=== PATIENT | female | born 1965 | race Caucasian/White ===

== ENCOUNTER 2016-12-29 15:01 | Observation (INO) ==
--- NOTE | 2016-12-29 15:24 | Emergency Department Note ---
Disposition Clinical Impression: Transient cerebral ischemia, Hypertension, Diabetes, Tobacco abuse, CAD ( coronary artery disease), Chest pain, Obesity Disposition: Admitted As Inpatient Referrals: David Grimes MD [Primary Care Provider] - Forms: ED Satisfaction Letter General Adult HPI - General Chief complaint: ED Neuro Symptoms/Deficit Stated complaint: "slurred words", possible AMS Time Seen by Provider: 12/29/16 15:24 Source: patient, family Limitations: no limitations - History of Present Illness HPI Narrative: 51-year-old female reports emergency department with concerns for left arm numbness and tingling which started last night but then resolved. This morning she was at home and had an argument with her , her daughter called her about 1:00 and noticed that she was not speaking as clearly as usual so she went and checked her. She brought the patient to the ED for evaluation. There is no history of upper or lower extremity weakness or numbness that persisted. The patient describes a posterior occipital headache. There is no history of head trauma, neck stiffness rash or fever. No convulsions or confusion. The patient describes having some chest pain earlier today as well as shortness of breath. She has chronic abdominal pain which is unchanged. There is no history of bloody or black material in the stool. No history of vomiting or diarrhea. No fevers urinary symptoms or back pain. She has had no trouble walking or securing or speaking, the patient is known to be diabetic and her blood sugar was checked and it was in the 190s. On arrival to the ED room the patient states she has no symptoms. Pain Scale: 0 - Related Data Home Medications Medication Instructions Recorded Confirmed Albuterol Sulfate [Proair Hfa] 1 - 2 puff IH Q4H PRN 05/13/16 12/29/16 Montelukast [Singulair] 10 mg PO DAILY 05/13/16 12/29/16 Omeprazole [PriLOSEC] 40 mg PO BID 05/13/16 12/29/16 Thyroid,Pork [Froid Thyroid] 90 mg PO DAILY 05/13/16 12/29/16 Ipratropium/Albuterol Neb [Duoneb] 3 ml IH Q6HR PRN 05/14/16 12/29/16 Nitroglycerin [Nitrostat] 0.4 mg SL AD PRN 05/14/16 12/29/16 EPINEPHrine [Epipen] 0.3 mg IM ONCE PRN 12/16/16 12/29/16 HydrOXYzine 10 mg PO QID PRN 12/16/16 12/29/16 Metformin HCl [Glucophage] 1,000 mg PO BID 12/16/16 12/29/16 Oxygen 3 l NS AD PRN 12/16/16 12/29/16 Ranitidine HCl [Zantac] 150 mg PO BID PRN 12/16/16 12/29/16 Sucralfate [Carafate] 1 gm PO BID 12/16/16 12/29/16 HYDROcodone/Acet 7.5/325 mg [[place] 1 tab PO QID PRN 12/29/16 12/29/16 7.5-325 mg] Lisinopril [Zestril] 10 mg PO DAILY 12/29/16 12/29/16 Allergies Allergy/AdvReac Type Severity Reaction Status Date / Time acetaminophen Allergy Anaphylaxis Verified 12/29/16 15:19 [From Tylenol-Codeine #3] Amoxicillin Allergy Difficulty Verified 12/29/16 15:19 Breathing codeine Allergy Anaphylaxis Verified 12/29/16 15:19 [From Tylenol-Codeine #3] levofloxacin [From Levaquin] Allergy Anaphylaxis Verified 12/29/16 15:19 levothyroxine sodium Allergy Anaphylaxis Verified 12/29/16 15:19 Penicillins Allergy Anaphylaxis Verified 12/29/16 15:19 All systems ED: reviewed and negative except as stated. Past Medical History - Past Medical History Medical history: Reports: arthritis, COPD, diabetes, fibromyalgia, GERD, hypertension, thyroid disease Surgical history: Reports: cholecystectomy, hysterectomy Psychiatric history: Reports: anxiety EMPLOYEE RELATIONS SPECIALIST history: Reports: no EMPLOYEE RELATIONS SPECIALIST history - Social History Smoking Status: Current every day smoker Smokeless Tobacco Status: No Alcohol use: Reports: rarely Drug use: Reports: none Physical Exam - General Limitations: no limitations General appearance: alert, in no apparent distress - Head Head exam: atraumatic, normocephalic, normal inspection - Eye Eye exam: Present: normal appearance, PERRL, EOMI. Absent: scleral icterus, conjunctival injection, nystagmus, miosis, mydriasis, periorbital swelling - ENT ENT exam: normal exam, normal oropharynx, mucous membranes moist - Neck Neck exam: Present: normal inspection, full ROM, trachea midline. Absent: tenderness - Chest Chest inspection: Present: symmetric chest wall rise. Absent: tenderness - Respiratory Respiratory exam: Present: normal lung sounds bilaterally. Absent: respiratory distress, wheezes, accessory muscle use, prolonged expiratory phase - Cardiovascular Cardiovascular exam: Present: regular rate, normal rhythm, normal heart sounds - Abdominal Exam Abdominal exam: Present: soft, Non-Tender, normal bowel sounds, Rovsing's sign. Absent: tenderness, distention, guarding, rebound, rigidity, pulsatile mass - Extremities Exam Extremities exam: Present: normal inspection, full ROM, normal capillary refill. Absent: tenderness, pedal edema, joint swelling, calf tenderness - Expanded Lower Extremity Exam Lower leg exam: Absent: Homans' sign - Back Exam Back exam: Present: normal inspection, full ROM. Absent: tenderness, CVA tenderness (R), CVA tenderness (L), vertebral tenderness - Neurological Exam Neurological exam: Present: alert, oriented X3, CN II-XII intact, other (Finger to nose testing unremarkable, no pronator drift noted. The patient has chronic right lower extremity pain making it difficult to move her right extremity, but she seems to have good strength and sensation and denies any changes in her right lower extremity status regarding movement or sensory ability. I do not detect a focal neurologic defect on my examination.). Absent: motor sensory deficit - Psychiatric Psychiatric exam: Present: normal affect, normal mood - Skin Skin exam: Present: warm, dry, intact, normal color. Absent: rash, cyanosis, diaphoresis, erythema, pallor, mottled Course - Reevaluation(s) Reevaluation #1: The patient was in ED room, after our initial evaluation there was some slight slurred speech. Initial weakness orders and head CT were placed. We reviewed the case with the charge nurse, the patient does not meet criteria for stroke alert based on waxing and waning symptomatology which began last night. The patient's slurred speech defervesced very rapidly while in the ED. She was sent to CT scan. Vital Signs Temperature 97.7 F 12/29/16 15:13 Pulse Rate 87 12/29/16 15:13 Respiratory Rate 18 12/29/16 15:13 Blood Pressure 178/104 12/29/16 15:13 O2 Sat by Pulse Oximetry 95 12/29/16 15:13 Temperature 97.7 F 12/29/16 15:13 Pulse Rate 87 12/29/16 15:13 Respiratory Rate 18 12/29/16 15:13 Blood Pressure 178/104 12/29/16 15:13 O2 Sat by Pulse Oximetry 95 12/29/16 15:13 Oxygen Delivery Oxygen Delivery Room Air Medical Decision Making - MDM Narrative Medical decision making narrative: The patient's testing here is unremarkable, she has described intermittent chest pain. She also describes some left arm numbness or tingling last evening , then some slurred speech earlier today, which resolved, then recurred, then resolved. The patient appears to be stable. She may be experiencing TIA. She does have significant vascular risk factors including age, smoking, diabetes, and hypertension. The patient was given aspirin in the ED. Based on her history suggestive of neurologic disorder, as well as concerns for chest pain, with associated vascular risk factors, I thought it would be appropriate to admit the patient to the hospital. She is currently stable. I discussed the case with the hospitalist on-call who has accepted the patient to their care. - Lab Data Lab results reviewed: Yes I reviewed the patient's lab results. Result diagrams: 12/29/16 16:25 12/29/16 16:25 Lab Results 12/29/16 12/29/16 12/29/16 Range/Units 15:33 15:33 16:25 WBC 8.7 (4.3-11.1) K/mcL RBC 4.93 (3.82-4.97) M/mcL Hgb 14.6 (11.5-15.4) g/dL Hct 44.9 (35.3-44.9) % MCV 91.1 (83.0-100.0) fL MCH 29.6 (28.0-33.3) pg MCHC 32.5 (31.6-35.5) g/dL RDW 13.0 (11.5-14.5) % Plt Count 248 (140-400) K/mcL MPV 10.0 (9.4-12.4) fL Immature Gran % 0.3 (0-4) % Seg Neutrophils % 61.0 % Lymphocytes % 29.3 % Monocytes % 5.8 % Eosinophils % 3.3 % Basophils % 0.3 % Neutrophils # 5.3 (1.6-8.9) K/mcL Lymphocytes # 2.6 (0.6-4.6) K/mcL Monocytes # 0.5 (0.0-1.3) K/mcL Eosinophils # 0.3 (0.0-0.6) K/mcL Basophils # 0.0 (0.0-0.2) K/mcL Immature Plt Fraction 4.2 (1.1-6.1) % Sodium (136-145) mEq/L Potassium (3.5-4.5) mEq/L Chloride (98-109) mEq/L Carbon Dioxide (19-29) mEq/L BUN (7-20) mg/dL Creatinine (0.57-1.11) mg/dL Est GFR ( Amer) (> 60) Est GFR (Non-Af Amer) (> 60) BUN/Creatinine Ratio (6-26) Glucose (70-99) mg/dL Calculated Osmolality (280-300) Lactic Acid (0.5-2.2) mmol/L Calcium (8.6-10.8) mg/dL Magnesium (1.6-2.6) mg/dL Total Bilirubin (0.2-1.2) mg/dL Direct Bilirubin (0.0-0.5) mg/dL Indirect Bilirubin (0.0-1.2) mg/dL AST (5-34) Units/L ALT (0-55) Units/L Alkaline Phosphatase (38-126) Units/L Troponin I (0-0.03) ng/mL C-Reactive Protein (Less than 5) mg/L Serum Total Protein (6.0-8.3) g/dL Albumin (3.5-5.0) g/dL Globulin (2.4-3.5) g/dL Albumin/Globulin Ratio (1.1-2.2) TSH (0.350-4.840) mcIU/mL Urine Color Yellow (Yellow) Urine Clarity Clear (Clear) Urine pH 7.0 (5.0-8.0) pH Units Ur Specific [place] 1.007 L (1.010-1.025) Urine Protein Negative (Neg-Trace) mg/dL Urine Glucose (UA) Normal (Normal) mg/dL Urine Ketones Negative (Negative) mg/dL Urine Blood Negative (Negative) Urine Nitrite Negative (Negative) Urine Bilirubin Negative (Negative) Urine Urobilinogen Normal (Normal) mg/dL Ur Leukocyte Esterase Trace H (Negative) Urine Microscopic RBC 0-3 (0-3) per hpf Urine Microscopic WBC 0-3 (0-3) per hpf Ur Squamous Epith Cells Moderate H (None-Few) per lpf Urine Bacteria None Seen (None-Few) per hpf Hyaline Casts None Seen (None-Few) per lpf Ur Culture Indicated? YES A (NO) Urine Opiates Screen Negative (Qvzpiy=198) ng/mL Ur Barbiturates Screen Negative (Yepkqr=760) ng/mL Ur Phencyclidine Scrn Negative (Cutoff=25) ng/mL Ur Amphetamines Screen Negative (Whdohe=3826) ng/mL U Benzodiazepines Scrn Negative (Wsqaof=225) ng/mL Urine Cocaine Screen Negative (Cutoff= 300) ng/mL U Marijuana (THC) Screen Negative (Cutoff = 50) ng/mL 12/29/16 12/29/16 12/29/16 Range/Units 16:25 16:25 16:25 WBC (4.3-11.1) K/mcL RBC (3.82-4.97) M/mcL Hgb (11.5-15.4) g/dL Hct (35.3-44.9) % MCV (83.0-100.0) fL MCH (28.0-33.3) pg MCHC (31.6-35.5) g/dL RDW (11.5-14.5) % Plt Count (140-400) K/mcL MPV (9.4-12.4) fL Immature Gran % (0-4) % Seg Neutrophils % % Lymphocytes % % Monocytes % % Eosinophils % % Basophils % % Neutrophils # (1.6-8.9) K/mcL Lymphocytes # (0.6-4.6) K/mcL Monocytes # (0.0-1.3) K/mcL Eosinophils # (0.0-0.6) K/mcL Basophils # (0.0-0.2) K/mcL Immature Plt Fraction (1.1-6.1) % Sodium 141 (136-145) mEq/L Potassium 3.8 (3.5-4.5) mEq/L Chloride 104 (98-109) mEq/L Carbon Dioxide 29 (19-29) mEq/L BUN 9 (7-20) mg/dL Creatinine 0.65 (0.57-1.11) mg/dL Est GFR ( Amer) > 60 (> 60) Est GFR (Non-Af Amer) > 60 (> 60) BUN/Creatinine Ratio 14 (6-26) Glucose 95 (70-99) mg/dL Calculated Osmolality 290 (280-300) Lactic Acid (0.5-2.2) mmol/L Calcium 9.6 (8.6-10.8) mg/dL Magnesium 1.9 (1.6-2.6) mg/dL Total Bilirubin 0.4 (0.2-1.2) mg/dL Direct Bilirubin 0.2 (0.0-0.5) mg/dL Indirect Bilirubin 0.2 (0.0-1.2) mg/dL AST 25 (5-34) Units/L ALT 35 (0-55) Units/L Alkaline Phosphatase 90 (38-126) Units/L Troponin I 0.00 (0-0.03) ng/mL C-Reactive Protein 10 H (Less than 5) mg/L Serum Total Protein 7.2 (6.0-8.3) g/dL Albumin 3.7 (3.5-5.0) g/dL Globulin 3.5 (2.4-3.5) g/dL Albumin/Globulin Ratio 1.1 (1.1-2.2) TSH 2.883 (0.350-4.840) mcIU/mL Urine Color (Yellow) Urine Clarity (Clear) Urine pH (5.0-8.0) pH Units Ur Specific [place] (1.010-1.025) Urine Protein (Neg-Trace) mg/dL Urine Glucose (UA) (Normal) mg/dL Urine Ketones (Negative) mg/dL Urine Blood (Negative) Urine Nitrite (Negative) Urine Bilirubin (Negative) Urine Urobilinogen (Normal) mg/dL Ur Leukocyte Esterase (Negative) Urine Microscopic RBC (0-3) per hpf Urine Microscopic WBC (0-3) per hpf Ur Squamous Epith Cells (None-Few) per lpf Urine Bacteria (None-Few) per hpf Hyaline Casts (None-Few) per lpf Ur Culture Indicated? (NO) Urine Opiates Screen (Ymubgi=723) ng/mL Ur Barbiturates Screen (Ztufgj=277) ng/mL Ur Phencyclidine Scrn (Cutoff=25) ng/mL Ur Amphetamines Screen (Ymzmhz=3633) ng/mL U Benzodiazepines Scrn (Dcncnw=755) ng/mL Urine Cocaine Screen (Cutoff= 300) ng/mL U Marijuana (THC) Screen (Cutoff = 50) ng/mL 12/29/16 Range/Units 16:35 WBC (4.3-11.1) K/mcL RBC (3.82-4.97) M/mcL Hgb (11.5-15.4) g/dL Hct (35.3-44.9) % MCV (83.0-100.0) fL MCH (28.0-33.3) pg MCHC (31.6-35.5) g/dL RDW (11.5-14.5) % Plt Count (140-400) K/mcL MPV (9.4-12.4) fL Immature Gran % (0-4) % Seg Neutrophils % % Lymphocytes % % Monocytes % % Eosinophils % % Basophils % % Neutrophils # (1.6-8.9) K/mcL Lymphocytes # (0.6-4.6) K/mcL Monocytes # (0.0-1.3) K/mcL Eosinophils # (0.0-0.6) K/mcL Basophils # (0.0-0.2) K/mcL Immature Plt Fraction (1.1-6.1) % Sodium (136-145) mEq/L Potassium (3.5-4.5) mEq/L Chloride (98-109) mEq/L Carbon Dioxide (19-29) mEq/L BUN (7-20) mg/dL Creatinine (0.57-1.11) mg/dL Est GFR ( Amer) (> 60) Est GFR (Non-Af Amer) (> 60) BUN/Creatinine Ratio (6-26) Glucose (70-99) mg/dL Calculated Osmolality (280-300) Lactic Acid 1.6 (0.5-2.2) mmol/L Calcium (8.6-10.8) mg/dL Magnesium (1.6-2.6) mg/dL Total Bilirubin (0.2-1.2) mg/dL Direct Bilirubin (0.0-0.5) mg/dL Indirect Bilirubin (0.0-1.2) mg/dL AST (5-34) Units/L ALT (0-55) Units/L Alkaline Phosphatase (38-126) Units/L Troponin I (0-0.03) ng/mL C-Reactive Protein (Less than 5) mg/L Serum Total Protein (6.0-8.3) g/dL Albumin (3.5-5.0) g/dL Globulin (2.4-3.5) g/dL Albumin/Globulin Ratio (1.1-2.2) TSH (0.350-4.840) mcIU/mL Urine Color (Yellow) Urine Clarity (Clear) Urine pH (5.0-8.0) pH Units Ur Specific [place] (1.010-1.025) Urine Protein (Neg-Trace) mg/dL Urine Glucose (UA) (Normal) mg/dL Urine Ketones (Negative) mg/dL Urine Blood (Negative) Urine Nitrite (Negative) Urine Bilirubin (Negative) Urine Urobilinogen (Normal) mg/dL Ur Leukocyte Esterase (Negative) Urine Microscopic RBC (0-3) per hpf Urine Microscopic WBC (0-3) per hpf Ur Squamous Epith Cells (None-Few) per lpf Urine Bacteria (None-Few) per hpf Hyaline Casts (None-Few) per lpf Ur Culture Indicated? (NO) Urine Opiates Screen (Xjomzn=712) ng/mL Ur Barbiturates Screen ([place]=270) ng/mL Ur Phencyclidine Scrn (Cutoff=25) ng/mL Ur Amphetamines Screen (Mwpkop=9137) ng/mL U Benzodiazepines Scrn (Tbrvqr=628) ng/mL Urine Cocaine Screen (Cutoff= 300) ng/mL U Marijuana (THC) Screen (Cutoff = 50) ng/mL - Radiology Data Radiology results reviewed: Yes I reviewed the patient's radiology results.
[2016-12-29 16:52] LABS: Basophils % 0.3 %; Eosinophils # 0.3 K/mcL (0.0-0.6); Eosinophils % 3.3 %; Hematocrit 44.9 % (35.3-44.9); Hemoglobin 14.6 g/dL (11.5-15.4); Immature Granulocytes % 0.3 % (0-4); Immature Platelets 4.2 % (1.1-6.1); Lymphocytes # 2.6 K/mcL (0.6-4.6); Lymphocytes % 29.3 %; Mean Corpuscular HGB Conc 32.5 g/dL (31.6-35.5); Mean Corpuscular Hemoglobin 29.6 pg (28.0-33.3); Mean Corpuscular Volume 91.1 fL (83.0-100.0); Monocytes # 0.5 K/mcL (0.0-1.3); Monocytes % 5.8 %; Neutrophils # 5.3 K/mcL (1.6-8.9); Platelet Count 248 K/mcL (140-400); Red Blood Count 4.93 M/mcL (3.82-4.97)
[2016-12-29] MEDS ORDERED: Aspirin 325 MG TABLET PO ONE (17:12)
[2016-12-29 17:15] LABS: BUN/Creatinine Ratio 14 (6-26); Blood Urea Nitrogen 9 mg/dL (7-20); Calcium 9.6 mg/dL (8.6-10.8); Carbon Dioxide 29 mEq/L (19-29); Chloride 104 mEq/L (98-109); Glucose 95 mg/dL (70-99); Magnesium 1.9 mg/dL (1.6-2.6); Osmolality,Calculated 290 (280-300); Potassium 3.8 mEq/L (3.5-4.5); Sodium 141 mEq/L (136-145); eGFR For African Americans > 60 (> 60); eGFR For Non-African Americans > 60 (> 60)
[2016-12-29 17:17] LABS: Albumin 3.7 g/dL (3.5-5.0); Albumin/Globulin Ratio 1.1 (1.1-2.2); Bilirubin,Direct 0.2 mg/dL (0.0-0.5); Bilirubin,Indirect 0.2 mg/dL (0.0-1.2); Bilirubin,Total 0.4 mg/dL (0.2-1.2); Globulin 3.5 g/dL (2.4-3.5); Total Protein 7.2 g/dL (6.0-8.3)
[2016-12-29 17:38] LABS: Thyroid Stimulating Hormone 2.883 mcIU/mL (0.350-4.840)
[2016-12-29 18:04] LABS: Amphetamine Screen,Urine Negative ng/mL (Cutoff=1000); Barbiturate Screen,Urine Negative ng/mL (Cutoff=200); Benzodiazepines Screen,Urine Negative ng/mL (Cutoff=200); Bilirubin,Urine Negative (Negative); Blood,Urine Negative (Negative); Cannabinoid Screen,Urine Negative ng/mL (Cutoff = 50); Clarity,Urine Clear (Clear); Cocaine Screen,Urine Negative ng/mL (Cutoff= 300); Color,Urine Yellow (Yellow); Glucose,Urine (UA) Normal (Normal); Ketones,Urine Negative (Negative); Leukocyte Esterase,Urine Trace (Negative); Nitrite,Urine Negative (Negative); Opiate Screen,Urine Negative ng/mL (Cutoff=300); Phencyclidine Screen,Urine Negative ng/mL (Cutoff=25); Protein,Urine Negative (Neg-Trace); Specific Gravity,Urine 1.007 (1.010-1.025); Urobilinogen,Urine Normal (Normal)
[2016-12-29 18:07] LABS: Bacteria,Urine None Seen per hpf (None-Few); Hyaline Casts,Urine None Seen per lpf (None-Few); RBC,Urine 0-3 per hpf (0-3); Squamous Epithelial Cell,Urine Moderate per lpf (None-Few); WBC,Urine 0-3 per hpf (0-3)
--- NOTE | 2016-12-29 19:49 | Internal Med History&Physical ---
Date of Encounter: 12/29/16 Time of Encounter: 19:49 Assessment and Plan (1) Transient cerebral ischemia Current visit: Yes Status: Acute patient comes in with signs and symptoms concerning for TIA, symptoms currently resolved, head CT was unremarkable for an acute bleed, or prior stroke, she has significant risk factors DM/HTN/active smoker so we will institute the stroke protocol, her last known normal was mostly 2200:00 on 12/28/16, therefore not a candidate of tPA, we will get MRI brain, MR head and neck with saline echo for PFO, we will get neuro to weigh in, we will also check lipid profile and A1c, will give aspirin and lipitor, neuro checks Qualifiers: Transient cerebral ischemia type: other Qualified Code(s): G45.8 - Other transient cerebral ischemic attacks and related syndromes (2) Chest pain Current visit: Yes Status: Chronic pt reports significant chest pain and associated symptoms, her most recent stress test in 04/2016 was unremarkable, but with her risk factors of DM/HTN/ obesity her symptoms are still concerning, we will get cardiology to weigh in Qualifiers: Chest pain type: precordial pain Qualified Code(s): R07.2 - Precordial pain (3) Diabetes Current visit: Yes Status: Chronic Hx of DM type with most recent A1c of 6.9% in 04/2016 on metformin at home, we will hold metformin should she require any contrast enhanced procedures and do SSI for coverage, will repeat A1c Qualifiers: 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 type: type 2 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 complication status: with neurologic complications 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 complication detail: with polyneuropathy 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 chcf insulin use: without machine setter sheet metal use Qualified Code(s): E11.42 - Type 2 diabetes mellitus with diabetic polyneuropathy (4) Hypertension Current visit: Yes Status: Chronic hx of HTN on lisinopril, we will continue that with BP monitoring Qualifiers: Hypertension type: essential hypertension Qualified Code(s): I10 - Essential (primary) hypertension (5) Hypothyroidism Current visit: Yes Status: Chronic will continue home medications Qualifiers: Hypothyroidism type: acquired Qualified Code(s): E03.9 - Hypothyroidism, unspecified (6) COPD (chronic obstructive pulmonary disease) Current visit: Yes Status: Chronic not in acute exacerbation but has some occasional end expiratory wheeze, we will do PRN nebs Qualifiers: COPD type: chronic bronchitis Chronic bronchitis type: simple Qualified Code(s): J41.0 - Simple chronic bronchitis (7) GERD (gastroesophageal reflux disease) Current visit: Yes Status: Chronic will continue her home PPI Qualifiers: Esophagitis presence: without esophagitis Qualified Code(s): K21.9 - Gastro -esophageal reflux disease without esophagitis Internal Medicine - H&P: HPI Chief complaint: left arm numbness Admitted From: Emergency Dept Plans for Post Hospital Care: Home History of present illness: Ms. Archer is a 51 year old female with no prior history of stroke but with a significant family history of CVA was brought in with left arm numbness. She was in her usual state of health until she woke up at around 1am on the day of presentation with left arm numbness and tingling that she thought was related to her lying on that arm. She went back to sleep and woke up this morning but could not tell whether she still had the symptoms. Later in the day she had an argument with her and afterwards was noted by her daughter to have a slurred speech. She was brought to the ER for that reason, she denies preceding headache, focal weakness or falls. Of note she reports intermittent pressure like chest pain that radiates to her jaw and arms, associated with dyspnea, she had a negative stress test in 2015. She had prior cath years ago but required no intervention. Past Med Surg Social Fam HX - Past Medical History Medical history: arthritis, COPD, diabetes, fibromyalgia, GERD, hypertension, thyroid disease Psychiatric history: anxiety - Past Surgical History Surgical History: cholecystectomy, hysterectomy - Social History Smoking Status: Current every day smoker Packs per day: 2ppd to 2 and half ppd for about 9 years now Smokeless Tobacco Status: No Alcohol use: rarely Drug use: none Current living situation: Home - Independent Activity Level: Independent ambulation - Family History Mother Hx Family Autoimmune Disorders: Yes (lupus) Father Hx Family Cardiac Disorders: Yes (heart disease) - Additional Family History Additional family history: father had a stroke in his 50's, sister had a stroke in her 40's Internal Medicine - H&P: Meds Albuterol Sulfate [Proair Hfa] 1 - 2 puff IH Q4H PRN 05/13/16 [History] Montelukast [Singulair] 10 mg PO DAILY 05/13/16 [History] Omeprazole [PriLOSEC] 40 mg PO BID 05/13/16 [History] Thyroid,Pork [[place] Thyroid] 90 mg PO DAILY 05/13/16 [History] Ipratropium/Albuterol Neb [Duoneb] 3 ml IH Q6HR PRN 05/14/16 [History] Nitroglycerin [Nitrostat] 0.4 mg SL AD PRN 05/14/16 [History] EPINEPHrine [Epipen] 0.3 mg IM ONCE PRN 12/16/16 [History] HydrOXYzine 10 mg PO QID PRN 12/16/16 [History] Metformin HCl [Glucophage] 1,000 mg PO BID 12/16/16 [History] Oxygen 3 l NS AD PRN 12/16/16 [History] Ranitidine HCl [Zantac] 150 mg PO BID PRN 12/16/16 [History] Sucralfate [Carafate] 1 gm PO BID 12/16/16 [History] HYDROcodone/Acet 7.5/325 mg [[place] 7.5-325 mg] 1 tab PO QID PRN 12/29/16 [ History] Lisinopril [Zestril] 10 mg PO DAILY 12/29/16 [History] Allergies acetaminophen [From Tylenol-Codeine #3] Allergy (Verified 12/29/16 15:19) Anaphylaxis Amoxicillin Allergy (Verified 12/29/16 15:19) Difficulty Breathing codeine [From Tylenol-Codeine #3] Allergy (Verified 12/29/16 15:19) Anaphylaxis levofloxacin [From Levaquin] Allergy (Verified 12/29/16 15:19) Anaphylaxis levothyroxine sodium Allergy (Verified 12/29/16 15:19) Anaphylaxis Penicillins Allergy (Verified 12/29/16 15:19) Anaphylaxis All Systems PM: A 10-system review of systems was performed and is negative for pertinent findings except as documented above in the HPI. - Constitutional Vitals: Temp Pulse Resp BP Pulse Ox 97.7 F 95 18 126/73 92 12/29/16 15:13 12/29/16 18:19 12/29/16 18:19 12/29/16 18:19 12/29/16 18:19 PHYSICAL EXAMINATION: GENERAL: Adult female, obese looking, sitting up in bed with no sign of distress, no facial asymmetry, Alert, makes good eye contact HEENT: NC/AT, EOMI, PERRLA, anicteric sclera, normal conjunctiva, supple, clear nares, moist mucous membranes, clear oropharynx, central uvula RESP: no chest wall tenderness with palpation, lungs are clear to auscultation bilaterally, good AE bilaterally, No crackles or wheeze CARDIO: Normal hearts sounds; S1 and 2, RRR with no murmurs, no JVD, no ankle edema GI: Soft, full, no tenderness, no organomegaly felt, normal bowel sounds heard MUSCULOSKELETAL: grossly normal movements bilaterally, no deformities noted, no calf tenderness NEUROLOGIC: CN 2-12 intact grossly, power 5/5 in all limbs, normal tone and reflexes, no sensory deficit appreciated, PSYCHIATRY: AAO x 3. Mood is fair, exhibits appropriate judgement SKIN: no skin rash or ulcers noted Internal Med - H&P Results - Labs CBC & Chem 7: 12/29/16 16:25 12/29/16 16:25 - Diagnostic Studies Chest x-ray Status: image reviewed by me CT scan - head Status: image reviewed by me
[2016-12-29] MEDS ORDERED: Nitroglycerin 0.4 MG TAB.SUBL SL PRN (19:53)
[2016-12-29] MEDS ORDERED: NON-FORMULARY MEDICATION 1 EACH EACH (Oxygen [Oxygen] 3 L) NS PRN (19:53)
[2016-12-29] MEDS ORDERED: Famotidine 20 MG TABLET PO PRN (19:53)
[2016-12-29] MEDS ORDERED: *HR* HYDROcodone/Acet 7.5/325 mg TABLET PO PRN (19:53)
[2016-12-29] MEDS ORDERED: Dextrose Gel 15 GM PO PRN ×2 (19:55)
[2016-12-29] MEDS ORDERED: D5% in Water 1,000 ML IVC PRN (19:55)
[2016-12-29] MEDS ORDERED: *HR* Dextrose 50 % in Water (Syg) 50 ML SYRINGE IVP PRN (19:55)
[2016-12-29] MEDS ORDERED: Albuterol 2.5 MG/3 ML NEBULIZER IH PRN (19:56)
[2016-12-29] MEDS ORDERED: Naloxone 0.4 MG/ML INJ IVP PRN (19:56)
[2016-12-29] MEDS ORDERED: Insulin LISPRO 300 UNITS/3 ML VIAL SQ SCH (21:00)
[2016-12-29] MEDS: Sucralfate 1 GM TABLET PO SCH (21:50)
[2016-12-29] MEDS ORDERED: Ibuprofen 400 MG TABLET PO ONE (22:22)
[2016-12-30 06:40] LABS: Hemoglobin A1C 6.1 %
[2016-12-30 06:44] LABS: Chol/HDL Ratio 4.8 (0-4.9)
--- NOTE | 2016-12-30 08:44 | Neurology - Consult Note ---
Date of Encounter: 12/30/16 Time of Encounter: 08:42 Assessment and Plan (1) Transient cerebral ischemia Current Visit: Yes Status: Acute Patient has risk factors including active smoking, DM2, and HTN. No active symptoms at this time. Initial workup is negative including CT of the head. Agree with further workup of MRI of the head, neck, and brain. Evaluate for PFO with echocardiogram. Continue ASA and Lipitor. Appears to have some chronic underlying cognitive decline in the past year with symptoms of loss of balance, loosing time, and decreased memory. Unclear etiology at this time. Qualifiers: Transient cerebral ischemia type: other Qualified Code(s): G45.8 - Other transient cerebral ischemic attacks and related syndromes History of Present Illness Chief complaint: slurred speech HPI: Ms. Archer is a 51 year old female with PMH significant for COPD, chronic chest pain, DM2, HTN, and hypothyroidism who presented to [facility] yesterday afternoon due to slurred speech. The patient reports that yesterday she cannot remember the morning, but states she feels as if she was "high." She says that at 1:30 in the afternoon she was painting and had an interaction with her daughter where her daughter was saying she was not okay and was having difficulty with speaking. The patient believes that her symptoms were related to her sugar as she had taken her metformin just prior to her symptoms. She states that shortly after arrival to the hospital her symptoms resolved, which she believes is due to her medication for her sugar beginning to work. She is unable to say how long her symptoms lasted as she was confused at the onset of her symptoms. She has additional history of left arm numbness when she awoke yesterday, but states she things she was sleeping on her arm, because after moving her arm around and rubbing it the sensation went away. She reports that she has been having increasing forgetfulness for the past year with occasional loss of balance causing her to bump into childs. She states that things just feel "foggy " compared to how they used to feel. The patient denies any drug use and states she has not smoked any marijuana in 32 years. The patient did not receive any tPA as she was not a candidate. Head CT was negative for acute intracranial abnormality. Lipid profile was ordered and reviewed. Additional workup that is pending includes MRI of the brain, head, and neck as well as ECHO study to assess for PFO. The patient states that she is clausterphobic and has nearly broken an MRI machine previously. The patient states that she was ready to move on from this world. When questioned whether she had any plan of suicide she states that she does not one and would not hurt herself. She additionally said that she could never commit suicide or she would have to roam this world forever. Her feelings originate from difficulty moving around due to pain in her right leg and shortness of breath preventing her from doing what she wants to in life. Past Med Surg Social Fam HX - Past Medical History Medical history: arthritis, COPD, diabetes, fibromyalgia, GERD, hypertension, thyroid disease Psychiatric history: anxiety - Past Surgical History Surgical History: cholecystectomy, hysterectomy - Social History Smoking Status: Current every day smoker Packs per day: 2ppd to 2 and half ppd for about 9 years now Smokeless Tobacco Status: No Alcohol use: rarely Drug use: none - Family History Mother Hx Family Autoimmune Disorders: Yes (lupus) Father Living Status: Age at : 70 Cause of : [place] and Kidney Failure Hx Family Cardiac Disorders: Yes (heart disease) Hx Family Respiratory Disorders: Yes (COPD) Hx Family Cancer: No Hx Family GI Disorders: No Hx Family Genitourinary Disorders: Yes (Kidney Failure) Hx Family Endocrine Disorder: Yes (DM Type 1) Hx Family Musculoskeletal Disorders: No Hx Family Neuromuscular Disorders: No Hx Family Neurologic Disorders: No Hx Family HEENT Disorders: No Hx Family Autoimmune Disorders: No Hx Family Reproductive Disorders: No Hx Family Psychosocial Disorders: No Hx Family Medical Disorders: No Medications and Allergies Albuterol Sulfate [Proair Hfa] 1 - 2 puff IH Q4H PRN 05/13/16 [History] Montelukast [Singulair] 10 mg PO DAILY 05/13/16 [History] Omeprazole [PriLOSEC] 40 mg PO BID 05/13/16 [History] Thyroid,Pork [[place] Thyroid] 90 mg PO DAILY 05/13/16 [History] Ipratropium/Albuterol Neb [Duoneb] 3 ml IH Q6HR PRN 05/14/16 [History] Nitroglycerin [Nitrostat] 0.4 mg SL AD PRN 05/14/16 [History] EPINEPHrine [Epipen] 0.3 mg IM ONCE PRN 12/16/16 [History] HydrOXYzine 10 mg PO QID PRN 12/16/16 [History] Metformin HCl [Glucophage] 1,000 mg PO BID 12/16/16 [History] Oxygen 3 l NS AD PRN 12/16/16 [History] Ranitidine HCl [Zantac] 150 mg PO BID PRN 12/16/16 [History] Sucralfate [Carafate] 1 gm PO BID 12/16/16 [History] HYDROcodone/Acet 7.5/325 mg [[place] 7.5-325 mg] 1 tab PO QID PRN 12/29/16 [ History] Lisinopril [Zestril] 10 mg PO DAILY 12/29/16 [History] Allergies acetaminophen [From Tylenol-Codeine #3] Allergy (Verified 12/29/16 15:19) Anaphylaxis Amoxicillin Allergy (Verified 12/29/16 15:19) Difficulty Breathing codeine [From Tylenol-Codeine #3] Allergy (Verified 12/29/16 15:19) Anaphylaxis levofloxacin [From Levaquin] Allergy (Verified 12/29/16 15:19) Anaphylaxis levothyroxine sodium Allergy (Verified 12/29/16 15:19) Anaphylaxis Penicillins Allergy (Verified 12/29/16 15:19) Anaphylaxis All Systems: A 10-system review of systems was performed and is negative for pertinent findings except as documented above in the HPI. - Cardiovascular Cardiovascular ROS IM: chest pain (chronic, unchanged) - Gastrointestinal Gastrointestinal: no dysphagia - Musculoskeletal Musculoskeletal ROS IM: abnormal gait Musculoskeletal: right: knee pain - Neurological Neurological ROS: abnormal speech, behavioral changes, memory loss, no headache( s), no loss of vision, no syncope Physical Examination - Vital Signs Vital Signs: Initial Vital Signs Temp Pulse Resp BP Pulse Ox 97.7 F 87 18 178/104 95 12/29/16 15:13 12/29/16 15:13 12/29/16 15:13 12/29/16 15:13 12/29/16 15:13 - Constitutional General appearance: comfortable - Neurologic Sensorimotor examination: intact Motor examination - right side: 5/5: deltoids, biceps, triceps, wrist flexion, wrist extension, stone fabricator, hip flexors, tibialis Anterior, quadriceps, toe extension (EHL), plantarflexion Motor examination - left side: 5/5: deltoids, biceps, triceps, wrist flexion, wrist extension, hip flexors, stone fabricator, quadriceps, tibialis Anterior, toe extension (EHL), plantarflexion Reflex and gait examination: antalgic gate (favors left leg) Reflexes: Biceps: 2+, Triceps: 2+, Patella: 2+ Mental Status Examination: awake, alert, oriented to person, oriented to place, oriented to time, follows commands appropriately, answers questions appropriately, makes eye contact Cranial nerve examination: PERRL, EOMI, visual landa intact, corneal reflexes brisk symmetrically, sensory to face intact, mastication intact, no facial asymmetry is present, no dysarthria, hearing is intact symmetrically, soft palate elevates bilaterally upon phonation, flexes SCM and trapezius muscles symmetrically with full power, tongue protrudes midline, no atrophy or facial fasiculations present Cerebellar examination: no dysmetria, performs finger to nose and heel to gross symmetrically without ataxia Results - Laboratory Findings CBC and BMP: 12/29/16 16:25 12/29/16 16:25 Abnormal lab findings: Abnormal lab results POC Glucose 138 (58-89) H 12/29/16 20:54 Hemoglobin A1c 6.1 % (-5.6) H 12/30/16 05:45 C-Reactive Protein 10 mg/L (Less than 5) H 12/29/16 16:25 Triglycerides 154 mg/dL (< 150) H 12/30/16 05:45 VLDL Cholesterol, Calc 31 mg/dL (< 31) H 12/30/16 05:45 HDL Cholesterol 33 mg/dL (40-59) L 12/30/16 05:45 Ur Specific [place] 1.007 (1.010-1.025) L 12/29/16 15:33 Ur Leukocyte Esterase Trace (Negative) H 12/29/16 15:33 Ur Squamous Epith Cells Moderate per lpf (None-Few) H 12/29/16 15:33 Ur Culture Indicated? YES (NO) A 12/29/16 15:33 Consult Discharge Plan - Plan Referrals: David Grimes MD [Primary Care Provider] -
[2016-12-30] MEDS ORDERED: THYROID PORK 90 MG PO SCH (09:00)
[2016-12-30] MEDS ORDERED: Aspirin 81 MG TAB.CHEW PO SCH (09:00)
[2016-12-30] MEDS: Sucralfate 1 GM TABLET PO SCH (09:16)
[2016-12-30] MEDS: Insulin LISPRO 300 UNITS/3 ML VIAL SQ SCH ×2 (09:26→13:58)
[2016-12-30] MEDS ORDERED: Nicotine 21 MG PATCH.TD24 TD SCH (10:00)
[2016-12-30] MEDS ORDERED: *HR* LORazepam 2 MG/ML VIAL IVP ONE ×2 (10:08→10:40)
[2016-12-30] MEDS ORDERED: Water for inj. (sterile) 10 ML IV ONE ×2 (10:14→10:47)
[2016-12-30] MEDS ORDERED: Perflutren Lipid Microsphere 1.3 ML in 0.9 % Sodium Chloride 8.7 ML IVP ONE (12:52)
[2016-12-30 14:10] VITALS: BP 143/76
--- NOTE | 2016-12-30 14:35 | Discharge Summary ---
Date of Encounter: 12/30/16 Time of Encounter: 14:33 - Discharge Diagnosis (1) Transient cerebral ischemia Priority: Primary Status: Acute Comments: possible TIA Echo pending , needs to follow final report either with neurology or primary care physician continue ASA Qualifiers: Transient cerebral ischemia type: other Qualified Code(s): G45.8 - Other transient cerebral ischemic attacks and related syndromes (2) Hypertension Priority: Secondary Status: Chronic Qualifiers: Hypertension type: essential hypertension Qualified Code(s): I10 - Essential (primary) hypertension (3) Hypothyroid Priority: Secondary Status: Acute Qualifiers: Hypothyroidism type: acquired Qualified Code(s): E03.9 - Hypothyroidism, unspecified (4) Tobacco abuse Priority: Secondary Status: Acute (5) Obesity Priority: Secondary Status: Acute Qualifiers: Obesity type: unspecified obesity type Obesity severity: unspecified obesity severity Qualified Code(s): E66.9 - Obesity, unspecified (6) Hypothyroidism Priority: Secondary Status: Chronic Qualifiers: Hypothyroidism type: acquired Qualified Code(s): E03.9 - Hypothyroidism, unspecified (7) GERD (gastroesophageal reflux disease) Priority: Secondary Status: Chronic Qualifiers: Esophagitis presence: without esophagitis Qualified Code(s): K21.9 - Gastro -esophageal reflux disease without esophagitis (8) Diabetes Priority: Secondary Status: Chronic Qualifiers: 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 type: type 2 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 complication status: with neurologic complications 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 complication detail: with polyneuropathy 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 detention insulin use: without detention use Qualified Code(s): E11.42 - Type 2 diabetes mellitus with diabetic polyneuropathy - Discharge Medications Prescriptions: Atorvastatin [Lipitor] 80 mg PO HS 30 Days Home Medications: Albuterol Sulfate [Proair Hfa] 1 - 2 puff IH Q4H PRN 05/13/16 [History] Montelukast [Singulair] 10 mg PO DAILY 05/13/16 [History] Omeprazole [PriLOSEC] 40 mg PO BID 05/13/16 [History] Thyroid,Pork [[place] Thyroid] 90 mg PO DAILY 05/13/16 [History] Ipratropium/Albuterol Neb [Duoneb] 3 ml IH Q6HR PRN 05/14/16 [History] Nitroglycerin [Nitrostat] 0.4 mg SL AD PRN 05/14/16 [History] EPINEPHrine [Epipen] 0.3 mg IM ONCE PRN 12/16/16 [History] HydrOXYzine 10 mg PO QID PRN 12/16/16 [History] Metformin HCl [Glucophage] 1,000 mg PO BID 12/16/16 [History] Oxygen 3 l NS AD PRN 12/16/16 [History] Ranitidine HCl [Zantac] 150 mg PO BID PRN 12/16/16 [History] Sucralfate [Carafate] 1 gm PO BID 12/16/16 [History] HYDROcodone/Acet 7.5/325 mg [[place] 7.5-325 mg] 1 tab PO QID PRN 12/29/16 [ History] Lisinopril [Zestril] 10 mg PO DAILY 12/29/16 [History] Aspirin 81 mg PO DAILY #0 tab.chew 12/30/16 [Rx] Atorvastatin [Lipitor] 80 mg PO HS 30 Days 12/30/16 [Rx] Allergies/Adverse Reactions: Allergies acetaminophen [From Tylenol-Codeine #3] Allergy (Verified 12/29/16 15:19) Anaphylaxis Amoxicillin Allergy (Verified 12/29/16 15:19) Difficulty Breathing codeine [From Tylenol-Codeine #3] Allergy (Verified 12/29/16 15:19) Anaphylaxis levofloxacin [From Levaquin] Allergy (Verified 12/29/16 15:19) Anaphylaxis levothyroxine sodium Allergy (Verified 12/29/16 15:19) Anaphylaxis Penicillins Allergy (Verified 12/29/16 15:19) Anaphylaxis Procedures/tests Complete & Pending: Procedures Performed prior 72 hours Category Date Time Status MR angio head wo con [MR] Routine MRI 12/30/16 07:53 Completed MR angio neck wo/w con [MR] Routine MRI 12/30/16 07:53 Completed MR head/brain wo con [MR] Routine MRI 12/30/16 07:53 Draft EV echo with saline and enhanc Routine Y 12/30/16 19:52 Ordered Date of admission: 12/29/16 18:52 Primary care physician: David Grimes MD Consults: 12/29/16 19:49 Consult to Neurology [CONS] Routine Consulting Provider: Neurology [facility] Reason for Consult: concern for stroke Call Completed: No 12/30/16 05:33 Consult to Cardiology [CONS] Routine Comment: Consulting Provider: Cardiology [facility] Reason for Consult: pls assist in managing this pt with significant risk factors for CAD with persistent CP with a recent negative stress test-04/2016, thanks Call Completed: No - Patient Status Disposition: Home, Self-Care Condition: Fair Overall status at discharge: patient is back to baseline - Discharge Instructions Follow Up With: David Grimes MD [Primary Care Provider] - 01/12/17 11:00 am Additional Instructions: Follow with primary care physician within 7 days. Echo pending , needs to follow the final report of the echocardiogram either with neurology or primary care physician Continue aspirin 81 mg oral daily and Lipitor 40 mg daily. Quit smoking - Diet and Activity Activity: increase activity as tolerated Diet: diabetic diet Hospital course: Ms. Archer is a 51 year old female with PMH significant for COPD, chronic chest pain, DM2 not insulin dep, HTN, and hypothyroidism who presented to [facility] yesterday afternoon due to slurred speech. The patient reports that yesterday she could not remember the morning, but states she felt as if she was "high." She says that at 1:30 in the afternoon she was painting and had an interaction with her daughter where her daughter was saying she was not okay and was having difficulty with speaking. The patient believes that her symptoms were related to her sugar as she had taken her metformin just prior to her symptoms. She stated that shortly after arrival to the hospital her symptoms resolved, which she believes is due to her medication for her sugar beginning to work. She is unable to say how long her symptoms lasted as she was confused . She developed left arm numbness when she awoke yesterday, but stated she thinks she was sleeping on her arm, because after moving her arm around and rubbing it the sensation went away. She reported that she had been having increasing forgetfulness for the past year with occasional loss of balance causing her to bump into childs. She stated that things just feel "foggy" compared to how they used to feel. The patient denied any drug use and stated she has not smoked any marijuana in 32 years. The patient did not receive any tPA as she was not a candidate. Head CT was negative for acute intracranial abnormality. Additional workup that is pending includes MRIMRA of the brain, head, and neck did not show any abnormality. ECHO perfromed, report is still pending. Received ativan due to claustrophobia ( for MRI) Stable to be discharged on ASA and lipitor Time spent discussing smoking cessation with patient: 3 to 10 minutes - Time Spent with Patient Total time spent providing and/or coordinating discharge services: Greater than 30 minutes (40 min) - Constitutional Vitals: Temp Pulse Resp BP Pulse Ox 97.7 F 75 19 143/76 95 12/30/16 14:12/30/16 14:12/30/16 14:12/30/16 14:12/30/16 14:09 General appearance: Present: A&O X 3, obese - Head Head exam: Present: atraumatic, normocephalic - Eye Eye exam: Present: PERRL, conjuntiva pink, sclera anicteric Pupils: Present: PERRL - Neck Neck exam general surgery: Present: supple, trachea midline. Absent: lymphadenopathy - Respiratory Respiratory exam: Present: CTAB. Absent: accessory muscle use, rales, rhonchi, wheezes - Cardiovascular Cardiovascular exam: Present: RRR, +S1, +S2. Absent: diastolic murmur, gallop, rubs, systolic murmur - GI/Abdominal GI/Abdominal exam: Present: normal bowel sounds, soft, no peritoneal signs. Absent: distended, tenderness - Extremities Exam Extremities exam: Present: warm, radial pulses palpable and symetrical. Absent : calf tenderness, cyanotic, pedal edema - Neurological Exam Neurological exam: Present: CN II-XII intact, oriented X3, no focal deficits. Absent: pronater drift, facial droop, speech deficit - Skin Skin exam: Present: dry, intact
--- NOTE | 2016-12-30 15:16 | Electrocardiograph Report ---
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
--- NOTE | 2016-12-30 15:30 | Cardiology Consult Note ---
Date of Encounter: 12/30/16 Time of Encounter: 15:00 Assessment and Plan (1) Chest pain Status: Chronic Atypical jaw pain associated with confusion and difficulty speaking. Troponin negative x3. EKG shows no acute changes. Stress test 04/2016 [facility] [address] head negative. MRI negative. Continue aggressive risk factor modification. Smoking cessation discussed. No further cardiology testing at this time. Qualifiers: Chest pain type: precordial pain Qualified Code(s): R07.2 - Precordial pain Discussion w patient/family: The assessment and plan as outlined above was discussed with the patient and/or family members who expressed understanding and agreement. All questions were answered. Thank you for involving us in the care of your patient. Please call with any questions. History of Present Illness Consult date: 12/30/16 Requesting physician: Chaim Winchester Consult reason: Chest pain Chief complaint: Jaw pain, difficulty speaking, confusion History of present illness: Ms. Archer is a 51 year old female with a history of hypertension, DM type II, and tobacco abuse who presents with jaw pain, difficulty speaking, and confusion. Symptoms started after eating boston cream pie. She states she had similar symptoms in the past when eating high sugar diet. She feels it is due to her blood sugar being high. C/o chronic chest pain symptoms over last four years. Describes intermittent chest pain described as a heaviness that occurs with stress. [facility] completed in 2012 showed minimal CAD. Stress test 04/2016 was negative for ischemia. She is undergoing nuerology evaluation to r/o TIA/CVA. Cardiology consulted for chest pain. Past Med Surg Social Fam HX - Past Medical History Attestation: Yes The following information was validated with the patient. Medical history: arthritis, COPD, diabetes, fibromyalgia, GERD, hypertension, thyroid disease Psychiatric history: anxiety - Past Surgical History Surgical History: cholecystectomy, hysterectomy - Social History Smoking Status: Current every day smoker Packs per day: 2ppd to 2 and half ppd for about 9 years now Smokeless Tobacco Status: No Alcohol use: rarely Drug use: none - Family History Mother Hx Family Autoimmune Disorders: Yes (lupus) Father Living Status: Age at : 70 Cause of : [place] and Kidney Failure Hx Family Cardiac Disorders: Yes (heart disease) Hx Family Respiratory Disorders: Yes (COPD) Hx Family Cancer: No Hx Family GI Disorders: No Hx Family Genitourinary Disorders: Yes (Kidney Failure) Hx Family Endocrine Disorder: Yes (DM Type 1) Hx Family Musculoskeletal Disorders: No Hx Family Neuromuscular Disorders: No Hx Family Neurologic Disorders: No Hx Family HEENT Disorders: No Hx Family Autoimmune Disorders: No Hx Family Reproductive Disorders: No Hx Family Psychosocial Disorders: No Hx Family Medical Disorders: No Medications and Allergies Albuterol Sulfate [Proair Hfa] 1 - 2 puff IH Q4H PRN 05/13/16 [History] Montelukast [Singulair] 10 mg PO DAILY 05/13/16 [History] Omeprazole [PriLOSEC] 40 mg PO BID 05/13/16 [History] Thyroid,Pork [[place] Thyroid] 90 mg PO DAILY 05/13/16 [History] Ipratropium/Albuterol Neb [Duoneb] 3 ml IH Q6HR PRN 05/14/16 [History] Nitroglycerin [Nitrostat] 0.4 mg SL AD PRN 05/14/16 [History] EPINEPHrine [Epipen] 0.3 mg IM ONCE PRN 12/16/16 [History] HydrOXYzine 10 mg PO QID PRN 12/16/16 [History] Metformin HCl [Glucophage] 1,000 mg PO BID 12/16/16 [History] Oxygen 3 l NS AD PRN 12/16/16 [History] Ranitidine HCl [Zantac] 150 mg PO BID PRN 12/16/16 [History] Sucralfate [Carafate] 1 gm PO BID 12/16/16 [History] HYDROcodone/Acet 7.5/325 mg [[place] 7.5-325 mg] 1 tab PO QID PRN 12/29/16 [ History] Lisinopril [Zestril] 10 mg PO DAILY 12/29/16 [History] Aspirin 81 mg PO DAILY #0 tab.chew 12/30/16 [Rx] Atorvastatin [Lipitor] 80 mg PO HS 30 Days 12/30/16 [Rx] Allergies acetaminophen [From Tylenol-Codeine #3] Allergy (Verified 12/29/16 15:19) Anaphylaxis Amoxicillin Allergy (Verified 12/29/16 15:19) Difficulty Breathing codeine [From Tylenol-Codeine #3] Allergy (Verified 05/09/17 15:19) Anaphylaxis levofloxacin [From Levaquin] Allergy (Verified 12/29/16 15:19) Anaphylaxis levothyroxine sodium Allergy (Verified 12/29/16 15:19) Anaphylaxis Penicillins Allergy (Verified 12/29/16 15:19) Anaphylaxis All Systems Review: A 10-system review of systems was performed and is negative for pertinent findings except as documented above in the HPI. Physical Examination Vital Signs, Last 4 Hours Temp Pulse Resp BP Pulse Ox 12/30/16 14:09 97.7 F 75 19 143/76 95 Results 12/29/16 16:25 12/29/16 16:25 Consult Discharge Plan - Plan Instructions: Diabetes Mellitus Type 2 in Adults (DC) Additional Instructions: Follow with primary care physician within 7 days. Echo pending , needs to follow the final report of the echocardiogram either with neurology or primary care physician Continue aspirin 81 mg oral daily and Lipitor 40 mg daily. Quit smoking Referrals: David Grimes MD [Primary Care Provider] - 01/12/17 11:00 am Prescriptions: Atorvastatin [Lipitor] 80 mg PO HS 30 Days
== END 2016-12-30 15:21 | disposition home or self-care (01) ==
LOC: EMEROO 15:01 → 3ANU 15:01
PROVIDERS: ADMIT Internal Medicine; ATTEND Internal Medicine

== ENCOUNTER 2017-12-01 12:53 | Inpatient (IN) ==
[2017-12-01] MEDS ORDERED: Ipratropium/Albuterol Neb 3 ML IH ONE (13:07)
[2017-12-01] MEDS ORDERED: methylPREDNISolone 125 MG/2 ML VIAL IVP ONE (13:08)
[2017-12-01] MEDS ORDERED: Isovue-370 500 ML INFUS..BTL IV ONE (13:26)
[2017-12-01] MEDS ORDERED: 0.9 % Sodium Chloride 1,000 ML IVC ONE (13:28)
[2017-12-01] MEDS ORDERED: *HR* FentaNYL (PF) 100 MCG/2 ML VIAL IVP ONE ×2 (13:28→15:26)
--- NOTE | 2017-12-01 13:38 | Emergency Department Note ---
Disposition Clinical Impression: Shortness of breath, Community acquired pneumonia, COPD exacerbation, Dyspnea on exertion, Lightheadedness Chest pain Qualifiers: Chest pain type: unspecified Qualified Code(s): R07.9 - Chest pain, unspecified Disposition: Admitted As Inpatient Condition: Fair General Adult HPI - General Chief complaint: ED Chest Pain Stated complaint: Chest pain Time Seen by Provider: 12/01/17 13:05 Source: patient, EMS Limitations: no limitations Nursing Notes Reviewed: Yes Vital Signs Reviewed: Yes - History of Present Illness Pain Scale: 2 - Related Data Home Medications Medication Instructions Recorded Confirmed Albuterol Sulfate [Proair Hfa] 1 - 2 puff IH Q4H PRN 05/13/16 12/01/17 Montelukast [Singulair] 10 mg PO DAILY 05/13/16 12/01/17 Omeprazole [PriLOSEC] 40 mg PO BID 05/13/16 12/01/17 Thyroid,Pork [[place] Thyroid] 90 mg PO DAILY 05/13/16 12/01/17 Ipratropium/Albuterol Neb [Duoneb] 3 ml IH Q6HR PRN 05/14/16 12/01/17 Nitroglycerin [Nitrostat] 0.4 mg SL AD PRN 05/14/16 12/01/17 EPINEPHrine [Epipen] 0.3 mg IM ONCE PRN 12/16/16 12/01/17 HydrOXYzine 10 mg PO QID PRN 12/16/16 12/01/17 Metformin HCl [Glucophage] 1,000 mg PO BID 12/16/16 12/01/17 Oxygen 3 l NS AD PRN 12/16/16 12/01/17 Linagliptin [Tradjenta] 5 mg PO DAILY 12/01/17 12/01/17 Lisinopril [Zestril] 5 mg PO DAILY 12/01/17 12/01/17 Naproxen Sodium [Aleve] 220 mg PO BID PRN 12/01/17 12/01/17 Allergies Allergy/AdvReac Type Severity Reaction Status Date / Time acetaminophen Allergy Anaphylaxis Verified 12/01/17 13:59 [From Tylenol-Codeine #3] Amoxicillin Allergy Difficulty Verified 12/01/17 13:59 Breathing codeine Allergy Anaphylaxis Verified 12/01/17 13:59 [From Tylenol-Codeine #3] levofloxacin [From Levaquin] Allergy Anaphylaxis Verified 12/01/17 13:59 levothyroxine sodium Allergy Anaphylaxis Verified 12/01/17 13:59 Penicillins Allergy Anaphylaxis Verified 12/01/17 13:59 Past Medical History - Past Medical History Medical history: Reports: arthritis, COPD, diabetes, GERD, hepatitis, hypertension, thyroid disease, venous stasis Surgical history: Reports: cholecystectomy, hysterectomy Psychiatric history: Reports: anxiety 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 - Social History Smoking Status: Current every day smoker Smokeless Tobacco Status: No Alcohol use: Reports: none Drug use: Reports: none Physical Exam - General Limitations: no limitations General appearance: alert Course Vital Signs Temperature 97.7 F 12/01/17 12:55 Pulse Rate 72 12/01/17 12:55 Respiratory Rate 25 12/01/17 12:55 Blood Pressure 169/99 12/01/17 12:55 O2 Sat by Pulse Oximetry 92 12/01/17 12:55 Temperature 97.7 F 12/01/17 12:55 Pulse Rate 79 12/01/17 16:40 Respiratory Rate 18 12/01/17 17:08 Blood Pressure 163/85 12/01/17 17:08 O2 Sat by Pulse Oximetry 95 12/01/17 16:40 Oxygen Delivery Oxygen Delivery Nasal Cannula Medical Decision Making - [facility] Narrative Medical decision making narrative: This documentation is done with the assistance of Dragon dictation. Despite efforts made to ensure accuracy, there may be inaccuracies in commissioning specialist or spelling and typographical errors. Patient presents to the ED today with chest pain she said it began around 11:00 this morning. She said she was cooking nothing stressful to the pain was sudden in onset is current a sharp in nature went into her back patient reports that she took 2 nitroglycerin at home and she has a history of coronary disease and that helped relieve the pain. She says right now she just has a lot of pressure in the area. I do a cardiac workup on her and then reassess. She is in agreement this plan. Chest X-Ray 12/01/17 13:06 IMPRESSION: No acute findings. D/ / Mary Corley MD / Mary Corley MD Interpreting Provider: Mary Corley MD Abdomen/Pelvis CTA 12/01/17 13:26 IMPRESSION: Right lower lobe interstitial infiltrate. Recommend follow-up imaging to confirm resolution. Negative for aortic dissection Fatty infiltration of the liver Probable adrenal hyperplasia D/ / Augustin Callejas MD / Augustin Callejas MD Interpreting Provider: Augustin Callejas MD Chest CTA 12/01/17 13:26 IMPRESSION: Right lower lobe interstitial infiltrate. Recommend follow-up imaging to confirm resolution. Negative for aortic dissection Fatty infiltration of the liver Probable adrenal hyperplasia D/ / Augustin Callejas MD / Augustin Callejas MD Interpreting Provider: Augustin Callejas MD 1551 hrs.: Patient does have a pneumonia on her chest CT. We will start on antibiotics and admit. She is in agreement with this plan. - Lab Data Result diagrams: 12/01/17 13:36 12/01/17 13:36 Lab Results 12/01/17 12/01/17 Range/Units 13:36 13:36 WBC 7.6 (4.3-11.1) K/mcL RBC 4.80 (3.82-4.97) M/mcL Hgb 14.5 (11.5-15.4) g/dL Hct 43.8 (35.3-44.9) % MCV 91.3 (83.0-100.0) fL MCH 30.2 (28.0-33.3) pg MCHC 33.1 (31.6-35.5) g/dL RDW 13.1 (11.5-14.5) % Plt Count 234 (140-400) K/mcL MPV 10.0 (9.4-12.4) fL Immature Gran % 0.4 (0-4) % Seg Neutrophils % 59.0 % Lymphocytes % 31.0 % Monocytes % 6.2 % Eosinophils % 3.0 % Basophils % 0.4 % Neutrophils # 4.5 (1.6-8.9) K/mcL Lymphocytes # 2.4 (0.6-4.6) K/mcL Monocytes # 0.5 (0.0-1.3) K/mcL Eosinophils # 0.2 (0.0-0.6) K/mcL Basophils # 0.0 (0.0-0.2) K/mcL Sodium 140 (136-145) mEq/L Potassium 3.6 (3.5-5.1) mEq/L Chloride 102 (98-107) mEq/L Carbon Dioxide 30 H (23-29) mEq/L BUN 10 (6-20) mg/dL Creatinine 0.66 (0.60-1.20) mg/dL Est GFR ( Amer) > 60 (> 60) Est GFR (Non-Af Amer) > 60 (> 60) BUN/Creatinine Ratio 15 (6-26) Glucose 109 H (70-105) mg/dL Calculated Osmolality 290 (280-300) Calcium 10.1 (8.6-10.3) mg/dL Troponin I < 0.03 (< 0.04) ng/mL Attestation Statement - Attestation Attestation: I examined this patient and my medical decision-making was reviewed with the Resident Physician. I agree with the documented findings, disposition and treatment plan as described except to the extent set forth below. Patient seen and evaluated by Dr. Eng and myself, I agree with his evaluation and management plan, supervise care the patient's stay.
[2017-12-01] MEDS ORDERED: *HR* Labetalol 20 MG/4 ML SYRINGE IVP ONE ×2 (13:58→15:26)
--- NOTE | 2017-12-01 13:58 | Emergency Department Note ---
Disposition Clinical Impression: Shortness of breath, COPD exacerbation, Dyspnea on exertion, Lightheadedness Chest pain Qualifiers: Chest pain type: unspecified Qualified Code(s): R07.9 - Chest pain, unspecified Community acquired pneumonia Qualifiers: Laterality: right Lung location: lower lobe of lung Qualified Code(s): J18.1 - Lobar pneumonia, unspecified organism Disposition: Admitted As Inpatient Condition: Fair Referrals: John Inman MD [Primary Care Provider] - Forms: ED Satisfaction Letter Time of Disposition: 16:07 Chest Pain HPI - General Chief Complaint: ED Chest Pain Stated Complaint: Chest pain Time Seen by Provider: 12/01/17 13:05 Source: patient, EMS Limitations: no limitations Vital Signs Reviewed: Yes Nursing Notes Reviewed: Yes - History of Present Illness HPI Narrative: Patient is a 52-year-old female complains of chest pain that started 3 hours ago. Patient states she was sitting at rest when she suddenly had sharp tearing chest pain from front to back radiation severe 8/10. Patient states she had dyspnea on exertion. After realizing that her pain and dyspnea or worsening with exertion. Patient suddenly had loss of all feeling in her left upper extremity. Patient has lightheadedness at rest, no vertigo-like symptoms. Patient took nitroglycerin 2 at her house with no resolution of symptoms. EMS arrived and gave the patient 325 of aspirin, and noted the patient had an O2 saturation 95% in room air. They were unable to get an IV and transported. Patient has a history of CVAs in the past. Severity scale (1-10): 0 - Related Data Home Medications Medication Instructions Recorded Confirmed Albuterol Sulfate [Proair Hfa] 1 - 2 puff IH Q4H PRN 05/13/16 12/01/17 Montelukast [Singulair] 10 mg PO DAILY 05/13/16 12/01/17 Omeprazole [PriLOSEC] 40 mg PO BID 05/13/16 12/01/17 Thyroid,Pork [[place] Thyroid] 90 mg PO DAILY 05/13/16 12/01/17 Ipratropium/Albuterol Neb [Duoneb] 3 ml IH Q6HR PRN 05/14/16 12/01/17 Nitroglycerin [Nitrostat] 0.4 mg SL AD PRN 05/14/16 12/01/17 EPINEPHrine [Epipen] 0.3 mg IM ONCE PRN 12/16/16 12/01/17 HydrOXYzine 10 mg PO QID PRN 12/16/16 12/01/17 Metformin HCl [Glucophage] 1,000 mg PO BID 12/16/16 12/01/17 Oxygen 3 l NS AD PRN 12/16/16 12/01/17 Linagliptin [Tradjenta] 5 mg PO DAILY 12/01/17 12/01/17 Lisinopril [Zestril] 5 mg PO DAILY 12/01/17 12/01/17 Naproxen Sodium [Aleve] 220 mg PO BID PRN 12/01/17 12/01/17 Allergies Allergy/AdvReac Type Severity Reaction Status Date / Time acetaminophen Allergy Anaphylaxis Verified 12/01/17 13:59 [From Tylenol-Codeine #3] Amoxicillin Allergy Difficulty Verified 12/01/17 13:59 Breathing codeine Allergy Anaphylaxis Verified 12/01/17 13:59 [From Tylenol-Codeine #3] levofloxacin [From Levaquin] Allergy Anaphylaxis Verified 12/01/17 13:59 levothyroxine sodium Allergy Anaphylaxis Verified 12/01/17 13:59 Penicillins Allergy Anaphylaxis Verified 12/01/17 13:59 All systems ED: reviewed and negative except as stated. Review of Systems: As Per HPI Constitutional: Denies: fever, chills Cardiovascular: Reports: chest pain Respiratory: Reports: cough, dyspnea Gastrointestinal: Reports: nausea. 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 - Social History Smoking Status: Current every day smoker Alcohol use: Reports: none Drug use: Reports: none Physical Exam Vital Signs Temperature 97.7 F 12/01/17 12:55 Pulse Rate 72 12/01/17 12:55 Respiratory Rate 25 12/01/17 12:55 Blood Pressure 169/99 12/01/17 12:55 O2 Sat by Pulse Oximetry 92 12/01/17 12:55 Temperature 97.7 F 12/01/17 12:55 Pulse Rate 70 12/01/17 13:40 Respiratory Rate 18 12/01/17 13:51 Blood Pressure 150/97 12/01/17 13:40 O2 Sat by Pulse Oximetry 97 12/01/17 13:51 Oxygen Delivery Oxygen Delivery Nasal Cannula CONSTITUTIONAL: Well-appearing; well-nourished; A&O X 3, in distress secondary to her chest and back discomfort. Patient is afebrile, and hypertensive at 169/ 99. O2 sat 92 on room air. HEAD: Normocephalic; atraumatic EYES: PERRL, no scleral icterus NOSE: The nose is normal in appearance without rhinorrhea NECK: No JVD or distended neck veins RESP: Normal chest excursion with respiration; mild wheezing in the left lower lung field CARD: Regular rhythm, without murmurs, rub or gallop ABD: Non-distended; non-tender, soft, without rigidity, rebound or guarding,no pulsatile mass CHEST: No pain with palpation SKIN: Normal for age and race; warm and dry without diaphoresis ; no apparent lesions EXTREMITIES: Pulses are 2 plus and equal times 4 extremities, no peripheral edema or calf muscle pain no pulse deficit NEUROLOGICAL: Patient is alert and oriented times three. Cranial nerves III- XII are intact. Sensory and motor functions are intact. Strength is 5/5 for flexion and extension in all 4 extremities. Patellar DTRS are equal and intact. Finger to nose testing is equal and normal bilaterally. No dysdiadochokinesis. NIH score of 0 - General Limitations: no limitations General appearance: alert Course - Reevaluation(s) Reevaluation #1: Patient refused her IV fentanyl and labetalol earlier. After speaking with the patient she decided she was going to take the medications. Patient has not received her meds as yet. However, patient's pain is currently 3 out of 10 and her blood pressure is coming down and currently 144/79. Patient Time: 15:22 Reevaluation #2: Patient's bed needed to be reordered. Patient will receive 25 g of fentanyl since her pain level is lower and 5 mg of labetalol IV. Time: 15:27 Reevaluation #3: CT angiogram results did not show aortic dissection but revealed a right lower lobe infiltrate required pneumonia. Patient's breathing symptoms have improved and patient currently has 0 chest pain Time: 15:57 - Consultations Consultation #1: Dr. Douglas the hospitalist as accepted patient for admission in stable condition. Time: 15:57 Vital Signs Temperature 97.7 F 12/01/17 12:55 Pulse Rate 72 12/01/17 12:55 Respiratory Rate 25 12/01/17 12:55 Blood Pressure 169/99 12/01/17 12:55 O2 Sat by Pulse Oximetry 92 12/01/17 12:55 Temperature 97.7 F 12/01/17 12:55 Pulse Rate 80 12/01/17 15:35 Respiratory Rate 20 12/01/17 15:35 Blood Pressure 139/89 12/01/17 15:35 O2 Sat by Pulse Oximetry 95 12/01/17 15:35 Oxygen Delivery Oxygen Delivery Room Air Chest Pain - MDM Narrative Medical decision making narrative: Patient presents with chest pain that is tearing character from front to back with associated transient neurologic deficit of her left upper extremity that raises concern for aortic dissection. Patient is a vasculopath and also has been concerned for ACS/IL. Chest x-ray is negative for any abnormalities, no mediastinal widening, no obscuring of aortic knob, the patient does not have any pulse deficits. Patient's advanced imaging CTA to the chest did show aortic dissection, or PE, but did show right lower lobe infiltrate for community acquired pneumonia. Patient is started on 500 g IV A. fib to mycin, and 1 g of Rocephin. Patient has a penicillin and levofloxacin allergy. Patient's EKG shows any signs of ischemia or infarct. Patient's symptoms of shortness of breath have been improved with DuoNeb therapy, 125 of methylprednisolone, and pain control with 25 g of fentanyl along with 5 mg of labetalol for her hypertension. Patient received full dose of aspirin from EMS. Patient has a history of CVA and recent complaint of left upper extremity paresthesia and will be sent for CT of her head. Patient understands and agrees to decision for admission given her current COPD exacerbation by pneumonia and associated chest pain. Patient is at risk for adverse cardiac events given her risk factors with a heart score of 5. Dr. Douglas the hospitalist as accepted patient for admission in stable condition. - Lab Data Lab results reviewed: Yes I reviewed the patient's lab results. Lab results narrative: Short CBC 12/01/17 Range/Units 13:36 WBC 7.6 (4.3-11.1) K/mcL Hgb 14.5 (11.5-15.4) g/dL Hct 43.8 (35.3-44.9) % Plt Count 234 (140-400) K/mcL Neutrophils # 4.5 (1.6-8.9) K/mcL BMP 12/01/17 Range/Units 13:36 Sodium 140 (136-145) mEq/L Potassium 3.6 (3.5-5.1) mEq/L Chloride 102 (98-107) mEq/L Carbon Dioxide 30 H (23-29) mEq/L BUN 10 (6-20) mg/dL Creatinine 0.66 (0.60-1.20) mg/dL Glucose 109 H (70-105) mg/dL Calcium 10.1 (8.6-10.3) mg/dL Cardiac Enzymes 12/01/17 Range/Units 13:36 Troponin I < 0.03 (< 0.04) ng/mL Result diagrams: 12/01/17 13:36 12/01/17 13:36 Lab Results 12/01/17 12/01/17 Range/Units 13:36 13:36 WBC 7.6 (4.3-11.1) K/mcL RBC 4.80 (3.82-4.97) M/mcL Hgb 14.5 (11.5-15.4) g/dL Hct 43.8 (35.3-44.9) % MCV 91.3 (83.0-100.0) fL MCH 30.2 (28.0-33.3) pg MCHC 33.1 (31.6-35.5) g/dL RDW 13.1 (11.5-14.5) % Plt Count 234 (140-400) K/mcL MPV 10.0 (9.4-12.4) fL Immature Gran % 0.4 (0-4) % Seg Neutrophils % 59.0 % Lymphocytes % 31.0 % Monocytes % 6.2 % Eosinophils % 3.0 % Basophils % 0.4 % Neutrophils # 4.5 (1.6-8.9) K/mcL Lymphocytes # 2.4 (0.6-4.6) K/mcL Monocytes # 0.5 (0.0-1.3) K/mcL Eosinophils # 0.2 (0.0-0.6) K/mcL Basophils # 0.0 (0.0-0.2) K/mcL Sodium 140 (136-145) mEq/L Potassium 3.6 (3.5-5.1) mEq/L Chloride 102 (98-107) mEq/L Carbon Dioxide 30 H (23-29) mEq/L BUN 10 (6-20) mg/dL Creatinine 0.66 (0.60-1.20) mg/dL Est GFR ( Amer) > 60 (> 60) Est GFR (Non-Af Amer) > 60 (> 60) BUN/Creatinine Ratio 15 (6-26) Glucose 109 H (70-105) mg/dL Calculated Osmolality 290 (280-300) Calcium 10.1 (8.6-10.3) mg/dL Troponin I < 0.03 (< 0.04) ng/mL - Radiology Data Radiology results reviewed: Yes I reviewed the patient's radiology results. Chest X-Ray 12/01/17 13:06 IMPRESSION: No acute findings. D/ / Mary Corley MD / Mary Corley MD Interpreting Provider: Mary Corley MD Abdomen/Pelvis CTA 12/01/17 13:26 IMPRESSION: Right lower lobe interstitial infiltrate. Recommend follow-up imaging to confirm resolution. Negative for aortic dissection Fatty infiltration of the liver Probable adrenal hyperplasia D/ / Augustin Callejas MD / Augustin Callejas MD Interpreting Provider: Augustin Callejas MD Chest CTA 12/01/17 13:26 IMPRESSION: Right lower lobe interstitial infiltrate. Recommend follow-up imaging to confirm resolution. Negative for aortic dissection Fatty infiltration of the liver Probable adrenal hyperplasia D/ / Augustin Callejas MD / Augustin Clalejas MD Interpreting Provider: Augustin Callejas MD - EKG Data EKG attestation: Yes I reviewed and interpreted this EKG. EKG results narrative: EKG taken 12/01/2017 at 1300 hrs. shows sinus rhythm at a rate of 71 beats minute with no acute ST elevations or depressions in any leads, no QRS widening or QT prolongation. EKG does not show any change in morphology and waveform from previous EKG taken 11/08/2017. Heart Score - Score History: Moderately Suspicious EKG: Non Specific repolarisation Disturbance Age: 45-65 Risk Factors: Equal/Greater than 3 risk factor or history of atherosclerotic disease Troponin: Less than normal limit HEART Score Total: 5 NIH Stroke Scale - Level of Consciousness LOC: Alert - LOC Questions LOC Questions: Answers both correctly - LOC Commands LOC Commands: Performs both correctly - Best Gaze Best Gaze: Normal - Visual Visual: No visual loss - Facial Palsy Facial Palsy: Normal - Motor Arms Motor Arm-Left: No drift for 10 seconds Motor Arm-Right: No drift for 10 seconds - Motor Legs Motor Leg-Left: No drift for 5 seconds Motor Leg-Right: No drift for 5 seconds - Limb Ataxia Limb Ataxia: Absent of affected limb too weak to perform exam - Sensory Sensory: Normal - Best Language Best Language: No aphasia - Dysarthria Dysarthria: Normal - Extinction and Inattention Extinction and Inattention: Normal - NIHSS Total Score NIHSS Total Score: 0
[2017-12-01 14:01] LABS: Basophils % 0.4 %; Eosinophils # 0.2 K/mcL (0.0-0.6); Hematocrit 43.8 % (35.3-44.9); Hemoglobin 14.5 g/dL (11.5-15.4); Immature Granulocytes % 0.4 % (0-4); Lymphocytes # 2.4 K/mcL (0.6-4.6); Mean Corpuscular HGB Conc 33.1 g/dL (31.6-35.5); Mean Corpuscular Hemoglobin 30.2 pg (28.0-33.3); Mean Corpuscular Volume 91.3 fL (83.0-100.0); Monocytes # 0.5 K/mcL (0.0-1.3); Monocytes % 6.2 %; Neutrophils # 4.5 K/mcL (1.6-8.9); Platelet Count 234 K/mcL (140-400); Red Cell Distribution Width 13.1 % (11.5-14.5)
[2017-12-01 14:23] LABS: BUN/Creatinine Ratio 15 (6-26); Blood Urea Nitrogen 10 mg/dL (6-20); Calcium 10.1 mg/dL (8.6-10.3); Carbon Dioxide 30 mEq/L (23-29); Chloride 102 mEq/L (98-107); Glucose 109 mg/dL (70-105); Osmolality,Calculated 290 (280-300); Potassium 3.6 mEq/L (3.5-5.1); Sodium 140 mEq/L (136-145); Troponin I < 0.03 ng/mL (< 0.04); eGFR For African Americans > 60 (> 60); eGFR For Non-African Americans > 60 (> 60)
[2017-12-01] MEDS ORDERED: *HR* Labetalol 100 MG/20 ML MDV IVP ONE (15:45)
[2017-12-01] MEDS ORDERED: cefTRIAXone 1,000 MG in Water for inj. (sterile) 20 ML 10 ML IVP ONE (15:47)
[2017-12-01] MEDS ORDERED: Azithromycin 500 MG in D5% in Water 250 ML IVPB ONE (15:47)
[2017-12-01] MEDS ORDERED: Acetaminophen 325 MG TABLET PO PRN (18:15)
[2017-12-01] MEDS ORDERED: Naloxone 0.4 MG/ML INJ IVP PRN (18:15)
[2017-12-01] MEDS ORDERED: Nitroglycerin 0.4 MG TAB.SUBL SL PRN (18:21)
[2017-12-01] MEDS ORDERED: D5% in Water 1,000 ML IVC PRN (18:23)
[2017-12-01] MEDS ORDERED: *HR* Dextrose 50 % in Water (Syg) 50 ML SYRINGE IVP PRN (18:23)
[2017-12-01] MEDS ORDERED: Dextrose Gel 15 GM/37.5 ML TUBE PO PRN ×2 (18:23)
[2017-12-01] MEDS ORDERED: *HR* EPINEPHrine 0.3 MG/0.3 ML (PEN) IM PRN (18:50)
--- NOTE | 2017-12-01 18:57 | Internal Med History&Physical ---
Date of Encounter: 12/01/17 Time of Encounter: 17:30 Internal Medicine - H&P: HPI Chief complaint: Chest pain/SOB Admitted From: Emergency Dept Plans for Post Hospital Care: Home History of present illness: Ms. Archer is a 52 year old female w/PMH of arthritis, COPD, lupus, diabetes controlled with oral antihyperglycemic medications, GERD, hepatitis, HTN, venous stasis, and thyroid disease presents from the ED with chief complaint of shortness of breath and chest pain that began today while patient was at rest. Patient describes chest pain as sharp and stabbing in her central chest with radiation through to her back and left arm numbness. Accompanying dizziness, cough w/pain to rt side, SOB, diaphoresis, fatigue, and nausea. Pt. reports hx of CP but states this was worse than usual. Nitro SL did not help. 325 mg aspirin given by moving consultant. Pt. denies recent illness, fever, chills, vomiting, headache, changes in vision, unusual bleeding, palpitations, pre-syncope, or syncope. Past Med Surg Social Fam HX - Past Medical History Source: patient, old records reviewed, obtained from family Medical history: arthritis, CHF, COPD, diabetes, GERD, hepatitis, hypertension, thyroid disease, venous stasis, other Psychiatric history: anxiety - Past Surgical History Surgical History: cholecystectomy, hysterectomy - Social History Smoking Status: Current every day smoker Packs per day: 2-3 PPD Smokeless Tobacco Status: No Alcohol use: none Drug use: none Current living situation: Home, With Family Activity Level: Independent ambulation Recent Out of Country Travel Within the Last 8 Weeks: No Exposure or Possible Exposure to Illness During Travel: No - Family History Mother History Unknown: Yes Living Status: Age at : 42 Cause of : Liver cancer Hx Family Cancer: Yes (Liver) Hx Family Autoimmune Disorders: Yes (lupus) Father Adopted: [place]: Janes Archer Sr Family Member Ethnicity: Unknown Living Status: Age at : 70 Cause of : IL Hx Family Cardiac Disorders: Yes (HTN, HLD, [place], HD) Hx Family Respiratory Disorders: Yes Brother Living Status: Still Living Hx Family Cardiac Disorders: Yes (IL, HTN, HLD) Sister Living Status: Still Living Hx Family Cardiac Disorders: Yes (IL, HLD, HTN) Hx Family Respiratory Disorders: Yes (COPD) Hx Family Endocrine Disorder: Yes (DM) Hx Family Autoimmune Disorders: Yes (Lupus) Internal Medicine - H&P: Meds Albuterol Sulfate [Proair Hfa] 1 - 2 puff IH Q4H PRN 05/13/16 [History] Montelukast [Singulair] 10 mg PO DAILY 05/13/16 [History] Omeprazole [PriLOSEC] 40 mg PO BID 05/13/16 [History] Thyroid,Pork [Dawson Thyroid] 90 mg PO DAILY 05/13/16 [History] Ipratropium/Albuterol Neb [Duoneb] 3 ml IH Q6HR PRN 05/14/16 [History] Nitroglycerin [Nitrostat] 0.4 mg SL AD PRN 05/14/16 [History] EPINEPHrine [Epipen] 0.3 mg IM ONCE PRN 12/16/16 [History] HydrOXYzine 10 mg PO QID PRN 12/16/16 [History] Metformin HCl [Glucophage] 1,000 mg PO BID 12/16/16 [History] Oxygen 3 l NS AD PRN 12/16/16 [History] Linagliptin [Tradjenta] 5 mg PO DAILY 12/01/17 [History] Lisinopril [Zestril] 5 mg PO DAILY 12/01/17 [History] Naproxen Sodium [Aleve] 220 mg PO BID PRN 12/01/17 [History] 3 Allergy/AdvReac Type Severity Reaction Status Date / Time acetaminophen Allergy Anaphylaxis Verified 12/01/17 13:59 [From Tylenol-Codeine #3] Amoxicillin Allergy Difficulty Verified 12/01/17 13:59 Breathing codeine Allergy Anaphylaxis Verified 12/01/17 13:59 [From Tylenol-Codeine #3] levofloxacin [From Levaquin] Allergy Anaphylaxis Verified 12/01/17 13:59 levothyroxine sodium Allergy Anaphylaxis Verified 12/01/17 13:59 Penicillins Allergy Anaphylaxis Verified 12/01/17 13:59 All Systems PM: A 10-system review of systems was performed and is negative for pertinent findings except as documented above in the HPI. - Constitutional Constitutional: as per HPI, fatigue, weakness, no chills, no fever(s), no night sweats - EENT Eyes: no change in vision, no discharge, no pain, no photophobia Ears: no ear discharge, no ear pain, no tinnitus Nose, mouth and throat: no dysphagia, no nasal discharge, no neck pain, no sore throat - Breasts Breasts: as per HPI - Cardiovascular Cardiovascular ROS IM: as per HPI, chest pain, diaphoresis, dyspnea, dyspnea on exertion, lightheadedness, no palpitations, no syncope - Respiratory Respiratory: as per HPI, cough, dyspnea on exertion, chest congestion, pain with cough, no dyspnea, no wheezing, no excessive phlegm production - Gastrointestinal Gastrointestinal: as per HPI, abdominal pain (Rt-sided w/cough), nausea, no diarrhea, no hematemesis, no hematochezia, no melena, no vomiting - Genitourinary Genitourinary: as per HPI, difficulty urinating, no change in urinary stream, no flank pain, no hematuria Menstruation: as per HPI, post hysterectomy - Musculoskeletal Musculoskeletal ROS IM: no numbness, no tingling - Integumentary Integumentary IM: no rash, no unusual bruising - Neurological Neurological ROS: as per HPI, dizziness, weakness, no confusion, no convulsions , no focal weakness, no numbness, no tingling, no tremor(s) - Psychiatric Psychiatric: as per HPI, anxiety - Endocrine Endocrine IM: as per HPI - Hematologic/Lymphatic Hematologic/Lymphatic: no easy bruising - Allergic/Immunologic Allergic/Immunologic: as per HPI - Constitutional Vitals: Temp Pulse Resp BP Pulse Ox 98.7 F 89 20 122/72 98 12/01/17 18:01 12/01/17 18:01 12/01/17 18:01 12/01/17 18:01 12/01/17 18:01 General appearance: Present: cooperative, A&O X 3, morbidly obese, pleasant, no acute distress, answers questions appropriately - Head Head exam: Present: atraumatic, normocephalic - Eye Eye exam: Present: PERRL, conjuntiva pink, sclera anicteric Pupils: Present: PERRL - ENT ENT exam: Present: normal exam - Neck Neck exam general surgery: Present: normal inspection, supple, trachea midline. Absent: lymphadenopathy - Respiratory Respiratory exam: Present: decreased breath sounds. Absent: accessory muscle use, rales, rhonchi, wheezes - Cardiovascular Cardiovascular exam: Present: RRR, +S1, +S2. Absent: diastolic murmur, gallop, rubs, systolic murmur - GI/Abdominal GI/Abdominal exam: Present: normal bowel sounds, soft, no peritoneal signs. Absent: distended, tenderness - Rectal Rectal exam: Present: deferred - Additional comments: exam deferred. - Extremities Exam Extremities exam: Present: warm, radial pulses palpable and symmetrical. Absent : calf tenderness, cyanotic, pedal edema - Back Exam Back exam: Present: normal inspection - Neurological Exam Neurological exam: Present: CN II-XII intact, oriented X3, no focal deficits. Absent: pronater drift, facial droop, speech deficit - Psychiatric Psychiatric exam: Present: normal affect, normal mood - Skin Skin exam: Present: dry, intact Internal Med - H&P Results - Labs CBC & Chem 7: 12/01/17 13:36 12/01/17 13:36 - Diagnostic Studies Other Images Additional comments: Impressions Abdomen/Pelvis CTA 12/01/17 13:26 IMPRESSION: Right lower lobe interstitial infiltrate. Recommend follow-up imaging to confirm resolution. Negative for aortic dissection Fatty infiltration of the liver Probable adrenal hyperplasia D/ / Augustin Callejas MD / Augustin Callejas MD Interpreting Provider: Augustin Callejas MD Chest CTA 12/01/17 13:26 IMPRESSION: Right lower lobe interstitial infiltrate. Recommend follow-up imaging to confirm resolution. Negative for aortic dissection Fatty infiltration of the liver Probable adrenal hyperplasia D/ / Augustin Callejas MD / Augustin Callejas MD Interpreting Provider: Augustin Callejas MD Chest x-ray Additional comments: Impressions Chest X-Ray 12/01/17 13:06 IMPRESSION: No acute findings. D/ / Mary Corley MD / Mary Colrey MD Interpreting Provider: Mary Corley MD CT scan - head Additional comments: Impressions Head CT 12/01/17 15:55 IMPRESSION: No acute intracranial abnormality. D/ / Aron Hudson / Aron Hudson Interpreting Provider: Aron Hudson - Assessment and plan (1) Chest pain Current Visit: Yes Status: Acute Assessment and plan: Acute CP that pt. describes as centralized in chest w/radiation to central back and numbness to left arm. CP from cardiac process versus current pneumonia. Nitro SL did not help sx. Pt. reports previous intermittent CP. Pain in upper right quadrant w/cough. Initial troponin <0.03. Will trend. Echocardiogram ordered to assess EF for correlation to CHF dx. Aspirin. Continuous cardiac telemetry. EKG ordered. Will consider Cardiology consult if troponins and/or echocardiogram results abnormal. Nitro PRN. Continue pts. Lisinopril. Pt. and f/ u labs to be monitored. Pt. discussed w/Dr. Douglas who agrees w/plan of care. Pt. is high risk for further morbidity d/t current pneumonia dx, CP, SOB w /hx of COPD, hx, and risk factors including current tobacco abuse (2-3 PPD). Inpatient. Qualifiers: Chest pain type: other chest pain Qualified Code(s): R07.89 - Other chest pain; R07.8 - Other chest pain (2) Community acquired pneumonia Current Visit: Yes Status: Acute Assessment and plan: Acute CAP as seen on CTA of chest. Pts. SOB concerning for possible PE and/or aortic dissection. CTA of chest shows right lower lobe interstitial infiltrates with recommendation for follow-up imaging to confirm resolution. Negative for aortic dissection. Fatty infiltration of the liver. Probable adrenal hyperplasia. Pt. denies recent hospitalization. Legionella and strep pneumoniae antigens ordered. IVPB azithromycin 50 mg daily and ceftriaxone 2000 mg daily for infection coverage d/t pts. current abx allergies. Monitor pt. for allergic rxn to ceftriaxone. Will adjust abx coverage based on antigen results if warranted. DuoNebs Q6HR scheduled. Supplemental O2 w/titration and SpO2 monitoring PRN. Mucinex for cough. Qualifiers: Laterality: right Lung location: lower lobe of lung Qualified Code(s): J18.1 - Lobar pneumonia, unspecified organism (3) Cough Current Visit: Yes Status: Acute Assessment and plan: Acute cough. Pt. reports non-productive cough. Mucinex ordered. DuoNebs Q6HR scheduled. Supplemental O2 w/titration and SpO2 monitoring PRN. (4) Dizziness Current Visit: Yes Status: Acute Assessment and plan: Acute dizziness accompanying CP and SOB. Falls/safety precautions, up with assist, bed rest w/bathroom privileges w/assist only. (5) COPD (chronic obstructive pulmonary disease) Current Visit: Yes Status: Chronic Assessment and plan: Hx of chronic COPD. Stable. Pt. receiving Solumedrol 60 mg IVP Q8HR as maintenance. Denies need for O2 currently, so supplemental O2 w/titration and SpO2 monitoring PRN. DuoNebs Q6HR scheduled. Qualifiers: COPD type: unspecified COPD Qualified Code(s): J44.9 - Chronic obstructive pulmonary disease, unspecified (6) HTN (hypertension) Current Visit: Yes Status: Chronic Assessment and plan: Hx of chronic HTN. Monitor pt. and VS. Continue pts. Lisinopril. Qualifiers: Hypertension type: essential hypertension Qualified Code(s): I10 - Essential (primary) hypertension (7) Thyroid disease Current Visit: Yes Status: Chronic Assessment and plan: Hx of chronic thyroid disease. Pt. reports severe allergy to levothyroxin ( anaphylaxis). We will continue patient's Dawson Thyroid. TSH and free T4 ordered in a.m. labs. (8) Diabetes Current Visit: Yes Status: Chronic Assessment and plan: Hx of chronic diabetes controlled with oral antihyperglycemic medications. Will hold oral diabetic medications and administer low-dose correction insulin sliding scale with hypoglycemic protocol. A1c in a.m. labs. BG checks before meals at bedtime. 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 Pt. reports smoking 2-3 PPD. No interest currently in quitting. 21 mg nicotine patch ordered. (10) GERD (gastroesophageal reflux disease) Current Visit: Yes Status: Chronic Assessment and plan: Hx of chronic GERD. Zofran 4 mg IVP Q6HR PRN for N/V. Protonix 40 mg IVP daily. Qualifiers: Esophagitis presence: without esophagitis Qualified Code(s): K21.9 - Gastro -esophageal reflux disease without esophagitis (11) DVT prophylaxis Current Visit: Yes Status: Acute Assessment and plan: Heparin 5,000 units SQ Q8 for DVT prophylaxis. Monitor pt. for signs of bleeding. - Time Spent With Patient Total time spent is greater than 50% in coordination of care (as documented) at patient's floor/unit and/or counseling patient: 25 - 35 minutes
[2017-12-01] MEDS: Nicotine 21 MG PATCH.TD24 TD SCH (19:07)
[2017-12-01] MEDS: Pantoprazole 40 MG VIAL IVP SCH (19:07)
[2017-12-01] MEDS ORDERED: Ondansetron 4 MG/2 ML VIAL IVP PRN (19:09)
[2017-12-01 20:44] LABS: Adenovirus Not Detected (Not Detect); Bordetella Pertussis Not Detected (Not Detect); Chlamydophila pneumoniae Not Detected (Not Detect); Coronavirus 229E Not Detected (Not Detect); Coronavirus HKU1 Not Detected (Not Detect); Coronavirus NL63 Not Detected (Not Detect); Coronavirus OC43 Not Detected (Not Detect); Human Metapneumovirus Not Detected (Not Detect); Human Rhinovirus/Enterovirus Not Detected (Not Detect); Influenza A Subtype 2009 H1 Not Detected (Not Detect); Influenza A Untypeable Not Detected (Not Detect); Influenza B Not Detected (Not Detect); Mycoplasma pneumoniae Not Detected (Not Detect); Parainfluenza Virus 1 Not Detected (Not Detect); Parainfluenza Virus 2 Not Detected (Not Detect); Parainfluenza Virus 3 Not Detected (Not Detect); Parainfluenza Virus 4 Not Detected (Not Detect); Respiratory Syncytial Virus Not Detected (Not Detect)
[2017-12-01] MEDS: Ipratropium/Albuterol Neb 3 ML IH SCH (21:27)
[2017-12-01] MEDS: *HR* Heparin 5,000 UNIT/ML VIAL SQ SCH (23:09)
[2017-12-01] MEDS: methylPREDNISolone 125 MG/2 ML VIAL IVP SCH (23:10)
[2017-12-01] MEDS: traMADol 50 MG TABLET PO PRN (23:25)
[2017-12-01] MEDS: Insulin LISPRO 300 UNITS/3 ML VIAL SQ SCH (23:35)
[2017-12-02 01:36] LABS: Basophils % 0.1 %; Hematocrit 42.9 % (35.3-44.9); Hemoglobin 13.9 g/dL (11.5-15.4); Lymphocytes # 0.8 K/mcL (0.6-4.6); Lymphocytes % 9.7 %; Mean Corpuscular HGB Conc 32.4 g/dL (31.6-35.5); Mean Corpuscular Volume 92.7 fL (83.0-100.0); Mean Platelet Volume 10.4 fL (9.4-12.4); Monocytes # 0.1 K/mcL (0.0-1.3); Monocytes % 1.3 %; Neutrophils # 7.6 K/mcL (1.6-8.9); Platelet Count 231 K/mcL (140-400); Red Blood Count 4.63 M/mcL (3.82-4.97); Red Cell Distribution Width 13.1 % (11.5-14.5); Segmented Neutrophils % 87.9 %
[2017-12-02 02:01] LABS: Alanine Aminotransferase 24 Units/L (7-52); Albumin 4.3 g/dL (3.5-5.7); Albumin/Globulin Ratio 1.7 (1.1-2.2); Alkaline Phosphatase 85 Units/L (34-104); Aspartate Amino Transferase 13 Units/L (13-39); BUN/Creatinine Ratio 16 (6-26); Bilirubin,Total 0.3 mg/dL (0.3-1.0); Blood Urea Nitrogen 13 mg/dL (6-20); Calcium 9.6 mg/dL (8.6-10.3); Carbon Dioxide 23 mEq/L (23-29); Chloride 102 mEq/L (98-107); Cholesterol 168 mg/dL (< 200); Globulin 2.5 g/dL (2.4-3.5); Glucose 404 mg/dL (70-105); HDL Cholesterol 42 mg/dL (40-59); LDL Cholesterol,Calculated 105 mg/dL (0-99); Magnesium 1.8 mg/dL (1.6-2.6); Osmolality,Calculated 297 (280-300); Potassium 4.2 mEq/L (3.5-5.1); Sodium 135 mEq/L (136-145); Total Protein 6.8 g/dL (6.4-8.9); Triglycerides 105 mg/dL (< 150); eGFR For African Americans > 60 (> 60); eGFR For Non-African Americans > 60 (> 60)
[2017-12-02 02:14] LABS: Thyroid Stimulating Hormone 1.419 mcIU/mL (0.340-5.600)
[2017-12-02] MEDS: Ipratropium/Albuterol Neb 3 ML IH SCH ×4 (03:50→22:39)
[2017-12-02] MEDS: *HR* Heparin 5,000 UNIT/ML VIAL SQ SCH ×3 (05:56→21:23)
[2017-12-02] MEDS ORDERED: *HR* Enoxaparin 40 MG/0.4 ML SYRINGE SQ SCH (06:00)
[2017-12-02] MEDS: methylPREDNISolone 125 MG/2 ML VIAL IVP SCH (08:08)
[2017-12-02] MEDS: Aspirin Enteric Coated 81 MG Tablet PO SCH (08:09)
[2017-12-02] MEDS: Nicotine 21 MG PATCH.TD24 TD SCH (08:09)
[2017-12-02] MEDS: Insulin LISPRO 300 UNITS/3 ML VIAL SQ SCH ×4 (08:10→21:22)
[2017-12-02] MEDS: Pantoprazole 40 MG VIAL IVP SCH (08:10)
--- NOTE | 2017-12-02 08:58 | Internal Med Progress Note ---
<Karie Zamora - Last Filed: 12/02/17 08:56> Date of Encounter: 12/02/17 - Assessment and plan (1) Chest pain Current Visit: Yes Status: Acute Assessment and plan: Acute CP that pt. describes as centralized in chest w/radiation to central back and numbness to left arm. CP from cardiac process versus current pneumonia. Nitro SL did not help sx. Pt. reports previous intermittent CP. Pain in upper right quadrant w/cough. Initial troponin <0.03. Will trend. Echocardiogram ordered to assess EF for correlation to CHF dx. Aspirin. Continuous cardiac telemetry. EKG ordered. Will consider Cardiology consult if troponins and/or echocardiogram results abnormal. Nitro PRN. Continue pts. Lisinopril. Pt. and f/ u labs to be monitored. Pt. discussed w/Dr. Douglas who agrees w/plan of care. Pt. is high risk for further morbidity d/t current pneumonia dx, CP, SOB w /hx of COPD, hx, and risk factors including current tobacco abuse (2-3 PPD). Inpatient. 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 2-3 PPD. No interest currently in quitting. 21 mg nicotine patch ordered. (4) GERD (gastroesophageal reflux disease) Current Visit: Yes Status: Chronic Qualifiers: Esophagitis presence: without esophagitis Qualified Code(s): K21.9 - Gastro -esophageal reflux disease without esophagitis (5) Community acquired pneumonia Current Visit: Yes Status: Acute Qualifiers: Laterality: right Lung location: lower lobe of lung Qualified Code(s): J18.1 - Lobar pneumonia, unspecified organism (6) Dizziness Current Visit: Yes Status: Acute (7) COPD (chronic obstructive pulmonary disease) Current Visit: Yes Status: Chronic Qualifiers: COPD type: unspecified COPD Qualified Code(s): J44.9 - Chronic obstructive pulmonary disease, unspecified (8) HTN (hypertension) Current Visit: Yes Status: Chronic Qualifiers: Hypertension type: essential hypertension Qualified Code(s): I10 - Essential (primary) hypertension (9) Thyroid disease Current Visit: Yes Status: Chronic (10) DVT prophylaxis Current Visit: Yes Status: Acute Assessment and plan: Heparin sq (11) Cough Current Visit: Yes Status: Acute - Time Spent With Patient Total time spent is greater than 50% in coordination of care (as documented) at patient's floor/unit and/or counseling patient: - Subjective Interval history: Sitting up in bed comfortably. She reports that she still has chest pain at this moment and shortness of breath. Denies nausea, fever, chills. She stated that she would like her code status changed from DNR CCA DNI to full code. - Constitutional Vitals: Temp Pulse Resp BP Pulse Ox 97.8 F 95 16 145/80 93 12/02/17 06:26 12/02/17 06:26 12/02/17 06:26 12/02/17 06:26 12/02/17 07:33 General appearance: Present: cooperative, A&O X 3, morbidly obese, pleasant, no acute distress, answers questions appropriately Exam: Gen.: Vitals noted. No acute distress. AAOx3 HEENT: oropharynx clear, Normocephalic, atraumatic Cardiac: RRR, no murmur, +S1/S2 Pulmonary: CTA bilaterally, no wheezes, rales or rhonchi, equal chest expansion Abdomen: soft, nontender, Bowel sounds noted, no guarding MSK: chest is tendered palpation. ROM intact, no joint swelling noted Extremities: no BLE edema, nontender calf, no cyanosis or clubbing Neuro: A&Ox3, moves all extremities, no focal deficits Psych: Appropriate mood and behavior Internal Medicine: Result - Labs CBC & Chem 7: 12/02/17 01:12 12/02/17 01:12 Labs: Short CBC 12/02/17 Range/Units 01:12 WBC 8.6 (4.3-11.1) K/mcL Hgb 13.9 (11.5-15.4) g/dL Hct 42.9 (35.3-44.9) % Plt Count 231 (140-400) K/mcL Neutrophils # 7.6 (1.6-8.9) K/mcL BMP 12/02/17 01:12 Sodium 135 L Potassium 4.2 Chloride 102 Carbon Dioxide 23 BUN 13 Creatinine 0.82 Glucose 404 H Calcium 9.6 Cardiac Enzymes 12/01/17 12/02/17 Range/Units 18:49 01:12 Troponin I < 0.03 < 0.03 (< 0.04) ng/mL Liver Function 12/02/17 Range/Units 01:12 Total Bilirubin 0.3 (0.3-1.0) mg/dL AST 13 (13-39) Units/L ALT 24 (7-52) Units/L Alkaline Phosphatase 85 (34-104) Units/L Albumin 4.3 (3.5-5.7) g/dL Consult Discharge Plan - Plan Referrals: John Inman MD [Primary Care Provider] - 12/09/17 8:30 am <Chaim Winchester - Last Filed: 12/02/17 11:07> Date of Encounter: 12/02/17 Time of Encounter: 11:06 - Assessment and plan (1) Chest pain Current Visit: Yes Status: Acute Qualifiers: Chest pain type: other chest pain Qualified Code(s): R07.89 - Other chest pain; R07.8 - Other chest pain (2) Diabetes Current Visit: Yes Status: Chronic Qualifiers: 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 type: type 2 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 retirement insulin use: without retirement use 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 complication status: with neurologic complications 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 complication detail: with polyneuropathy Qualified Code(s): E11.42 - Type 2 diabetes mellitus with diabetic polyneuropathy (3) Tobacco abuse Current Visit: Yes Status: Chronic (4) GERD (gastroesophageal reflux disease) Current Visit: Yes Status: Chronic Qualifiers: Esophagitis presence: without esophagitis Qualified Code(s): K21.9 - Gastro -esophageal reflux disease without esophagitis (5) Community acquired pneumonia Current Visit: Yes Status: Acute Qualifiers: Laterality: right Lung location: lower lobe of lung Qualified Code(s): J18.1 - Lobar pneumonia, unspecified organism (6) Dizziness Current Visit: Yes Status: Acute (7) COPD (chronic obstructive pulmonary disease) Current Visit: Yes Status: Chronic Qualifiers: COPD type: unspecified COPD Qualified Code(s): J44.9 - Chronic obstructive pulmonary disease, unspecified (8) HTN (hypertension) Current Visit: Yes Status: Chronic Qualifiers: Hypertension type: essential hypertension Qualified Code(s): I10 - Essential (primary) hypertension (9) Thyroid disease Current Visit: Yes Status: Chronic (10) DVT prophylaxis Current Visit: Yes Status: Acute (11) Cough Current Visit: Yes Status: Acute - Time Spent With Patient Total time spent is greater than 50% in coordination of care (as documented) at patient's floor/unit and/or counseling patient: - Constitutional Vitals: Temp Pulse Resp BP Pulse Ox 97.8 F 95 16 145/80 93 12/02/17 06:26 12/02/17 06:26 12/02/17 06:26 12/02/17 06:26 12/02/17 07:33 Internal Medicine: Result - Labs CBC & Chem 7: 12/02/17 01:12 12/02/17 01:12 Labs: Short CBC 12/02/17 Range/Units 01:12 WBC 8.6 (4.3-11.1) K/mcL Hgb 13.9 (11.5-15.4) g/dL Hct 42.9 (35.3-44.9) % Plt Count 231 (140-400) K/mcL Neutrophils # 7.6 (1.6-8.9) K/mcL BMP 12/02/17 01:12 Sodium 135 L Potassium 4.2 Chloride 102 Carbon Dioxide 23 BUN 13 Creatinine 0.82 Glucose 404 H Calcium 9.6 Cardiac Enzymes 12/01/17 12/02/17 Range/Units 18:49 01:12 Troponin I < 0.03 < 0.03 (< 0.04) ng/mL Liver Function 12/02/17 Range/Units 01:12 Total Bilirubin 0.3 (0.3-1.0) mg/dL AST 13 (13-39) Units/L ALT 24 (7-52) Units/L Alkaline Phosphatase 85 (34-104) Units/L Albumin 4.3 (3.5-5.7) g/dL - Attending Attestation Acute on chronic hypoxic respiratory failure secondary to acute COPD exacerbation due to community-acquired pneumonia unknown agent Continue Rocephin and azithromycin, resume Solu-Medrol IV Continue oxygen therapy and DuoNeb's Chest pain: Order stress test for the morning, echocardiogram pending I examined this patient and my medical decision-making was reviewed with the Resident Physician. I agree with the documented findings, disposition and treatment plan as described except to the extent set forth below.
[2017-12-02] MEDS ORDERED: Thyroid (Amour) 30 MG TABLET PO SCH (09:00)
[2017-12-02 09:07] LABS: Estimated Average Glucose 137 mg/dl; Hemoglobin A1C 6.4 %
[2017-12-02] MEDS: traMADol 50 MG TABLET PO PRN (14:25)
[2017-12-02] MEDS: Nitroglycerin 0.4 MG TAB.SUBL SL PRN ×3 (16:08→16:22)
[2017-12-02] MEDS: cefTRIAXone 1,000 MG in Water for inj. (sterile) 20 ML 10 ML IVP SCH (16:30)
[2017-12-02] MEDS ORDERED: *HR* Metoprolol 5 MG/5 ML VIAL IVP ONE (16:54)
[2017-12-02] MEDS ORDERED: *HR* Metoprolol 5 MG/5 ML VIAL IVP SCH (17:00)
[2017-12-02] MEDS: Azithromycin 500 MG in D5% in Water 250 ML IVPB SCH (18:23)
[2017-12-02] MEDS: ALPRAZolam 0.25 MG TABLET PO PRN (18:23)
[2017-12-02] MEDS ORDERED: cefTRIAXone 2,000 MG in Water for inj. (sterile) 20 ML 20 ML IVP SCH (19:00)
[2017-12-02] MEDS: MethylPREDNISolone 40 MG/ML VIAL IVP SCH (21:23)
[2017-12-03] MEDS: Ipratropium/Albuterol Neb 3 ML IH SCH ×4 (04:08→22:03)
[2017-12-03 04:57] LABS: Basophils % 0.2 %; Eosinophils % 0.1 %; Hematocrit 42.8 % (35.3-44.9); Hemoglobin 13.9 g/dL (11.5-15.4); Immature Granulocytes % 1.5 % (0-4); Lymphocytes # 1.6 K/mcL (0.6-4.6); Lymphocytes % 9.5 %; Mean Corpuscular HGB Conc 32.5 g/dL (31.6-35.5); Mean Corpuscular Hemoglobin 30.3 pg (28.0-33.3); Mean Corpuscular Volume 93.4 fL (83.0-100.0); Mean Platelet Volume 10.4 fL (9.4-12.4); Monocytes # 0.5 K/mcL (0.0-1.3); Neutrophils # 14.2 K/mcL (1.6-8.9); Platelet Count 242 K/mcL (140-400); Red Blood Count 4.58 M/mcL (3.82-4.97); Red Cell Distribution Width 13.3 % (11.5-14.5); Segmented Neutrophils % 85.7 %
[2017-12-03 05:14] LABS: Alanine Aminotransferase 27 Units/L (7-52); Albumin 4.1 g/dL (3.5-5.7); Albumin/Globulin Ratio 1.6 (1.1-2.2); Alkaline Phosphatase 69 Units/L (34-104); Aspartate Amino Transferase 16 Units/L (13-39); BUN/Creatinine Ratio 33 (6-26); Bilirubin,Total 0.2 mg/dL (0.3-1.0); Blood Urea Nitrogen 20 mg/dL (6-20); Calcium 9.4 mg/dL (8.6-10.3); Carbon Dioxide 28 mEq/L (23-29); Chloride 103 mEq/L (98-107); Globulin 2.6 g/dL (2.4-3.5); Glucose 251 mg/dL (70-105); Osmolality,Calculated 297 (280-300); Potassium 4.6 mEq/L (3.5-5.1); Sodium 138 mEq/L (136-145); Total Protein 6.7 g/dL (6.4-8.9); eGFR For African Americans > 60 (> 60); eGFR For Non-African Americans > 60 (> 60)
[2017-12-03] MEDS ORDERED: Regadenoson 0.4 MG/5 ML SYRINGE IVP ONE (05:29)
[2017-12-03] MEDS: *HR* Heparin 5,000 UNIT/ML VIAL SQ SCH ×3 (05:33→22:23)
[2017-12-03] MEDS ORDERED: predniSONE 20 MG TABLET PO SCH (09:00)
[2017-12-03] MEDS: Thyroid (Amour) 30 MG TABLET PO SCH (09:15)
[2017-12-03] MEDS: Aspirin Enteric Coated 81 MG Tablet PO SCH (09:16)
[2017-12-03] MEDS: Nicotine 21 MG PATCH.TD24 TD SCH (09:16)
[2017-12-03] MEDS: Insulin LISPRO 300 UNITS/3 ML VIAL SQ SCH ×4 (09:20→22:30)
--- NOTE | 2017-12-03 10:21 | Internal Med Progress Note ---
<Karie Zamora - Last Filed: 12/03/17 11:04> Date of Encounter: 12/03/17 Time of Encounter: 10:10 - Assessment and plan (1) Community acquired pneumonia Current Visit: Yes Status: Acute Assessment and plan: Chest CTA concerning for right lower lobe community acquired pneumonia WBC 16.6 (8.6) afebrile Patient reports improvement of dyspnea and cough. Lung examination demonstrated bilateral wheezing and rhonchi -continue Rocephin day 3 -continue azithromycin day 3 -continue supplemental oxygen Qualifiers: Laterality: right Lung location: lower lobe of lung Qualified Code(s): J18.1 - Lobar pneumonia, unspecified organism (2) COPD exacerbation Current Visit: Yes Status: Acute Assessment and plan: COPD exacerbation likely secondary to me acquired pneumonia. History of COPD on 3 L of oxygen as needed at home. SPO2 95% on 3L -Continue Solu-Medrol day 3 -duonebs PRN -supplemental oxygen is needed -antibiotics as above (3) Chest pain Current Visit: Yes Status: Acute Assessment and plan: Atypical chest pain. Troponins negative x5 TTE: EF 65% EKG: NSR, no ischemic changes Patient denies chest pain, palpitations, dizziness. -Pharmacologic stress test-2 day. Will have 2nd part tomorrow. -NPO at midnight -nitro PRN -likely discharge tomorrow after stress test results Qualifiers: Chest pain type: other chest pain Qualified Code(s): R07.89 - Other chest pain; R07.8 - Other chest pain (4) Diabetes Current Visit: Yes Status: Chronic Assessment and plan: Hx of chronic diabetes controlled with oral antihyperglycemic medications -medium dose AM and low-dose HS correction insulin sliding scale, Accu check Qualifiers: 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 type: type 2 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 terminal operator insulin use: without terminal operator use 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 complication status: with neurologic complications 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 complication detail: with polyneuropathy Qualified Code(s): E11.42 - Type 2 diabetes mellitus with diabetic polyneuropathy (5) GERD (gastroesophageal reflux disease) Current Visit: Yes Status: Chronic Assessment and plan: Hx of chronic GERD taking omeprazole -continue omeprazole and Zofran Qualifiers: Esophagitis presence: without esophagitis Qualified Code(s): K21.9 - Gastro -esophageal reflux disease without esophagitis (6) HTN (hypertension) Current Visit: Yes Status: Chronic Assessment and plan: History of hypertension taking lisinopril 5 mg. Will increase to lisinopril 10 mg for better blood pressure control will continue to monitor Qualifiers: Hypertension type: essential hypertension Qualified Code(s): I10 - Essential (primary) hypertension (7) Thyroid disease Current Visit: Yes Status: Chronic Assessment and plan: Hx of chronic thyroid disease. Pt. reports severe allergy to levothyroxin ( anaphylaxis). She takes her thyroid medication every few days. continue patient's [place] Thyroid. TSH 1.4 (normal) free T4 0.65 (minimally low) (8) Tobacco abuse Current Visit: Yes Status: Chronic Assessment and plan: Current smoker since 10 years old. 2-3 PPD. No interest currently in quitting. 21 mg nicotine patch ordered. (9) DVT prophylaxis Current Visit: Yes Status: Acute Assessment and plan: Heparin sq (10) Acute on chronic respiratory failure with hypoxia Current Visit: Yes Status: Acute Assessment and plan: Acute on chronic respiratory failure with hypoxia secondary to acute COPD exacerbation due to community acquired pneumonia SPO2 95% on 3L -see plan above - Time Spent With Patient Total time spent is greater than 50% in coordination of care (as documented) at patient's floor/unit and/or counseling patient: - Subjective Interval history: Sitting up in bed comfortably. She denies chest pain, fever, chills. She reports improvement of cough and shortness of breath. She has no complaints at this time. - Constitutional Vitals: Temp Pulse Resp BP Pulse Ox 97.6 F 78 15 143/87 97 12/03/17 07:00 12/03/17 07:00 12/03/17 09:29 12/03/17 07:00 12/03/17 09:29 General appearance: Present: cooperative, A&O X 3, morbidly obese, pleasant, no acute distress, answers questions appropriately Exam: Gen.: Vitals noted. No acute distress. AAOx3 HEENT: oropharynx clear, Normocephalic, atraumatic Neck: Supple. No adenopathy. Cardiac: RRR, no murmur, +S1/S2 Pulmonary: bilaterally wheezes and rhonchi, equal chest expansion Abdomen: soft, nontender, Bowel sounds noted, no guarding MSK: ROM intact, no joint swelling noted Extremities: no BLE edema, nontender calf, no cyanosis or clubbing Neuro: A&Ox3, moves all extremities, no focal deficits Psych: Appropriate mood and behavior Internal Medicine: Result - Labs CBC & Chem 7: 12/03/17 04:30 12/03/17 04:30 Labs: Short CBC 12/03/17 Range/Units 04:30 WBC 16.6 H D (4.3-11.1) K/mcL Hgb 13.9 (11.5-15.4) g/dL Hct 42.8 (35.3-44.9) % Plt Count 242 (140-400) K/mcL Neutrophils # 14.2 H (1.6-8.9) K/mcL BMP 12/03/17 04:30 Sodium 138 Potassium 4.6 Chloride 103 Carbon Dioxide 28 BUN 20 Creatinine 0.60 Glucose 251 H Calcium 9.4 Cardiac Enzymes 12/02/17 12/02/17 Range/Units 16:24 22:34 Troponin I < 0.03 < 0.03 (< 0.04) ng/mL Liver Function 12/03/17 Range/Units 04:30 Total Bilirubin 0.2 L (0.3-1.0) mg/dL AST 16 (13-39) Units/L ALT 27 (7-52) Units/L Alkaline Phosphatase 69 (34-104) Units/L Albumin 4.1 (3.5-5.7) g/dL - Impressions Impressions Echocardiogram 12/02/17 18:25 Impressions: LVEF 65%. Indeterminate diastolic function. Normal right ventricular structure and function. No significant valvular dysfunction. Unable to estimate RVSP due to lack of TR signal. The IVC is dilated suggesting the presence of elevated RA pressures. Left Ventricular Wall Motion: Rest Echo Findings All wall segments showed normal motion. Findings: Study Quality * Technically adequate exam. ECG Findings * Normal sinus rhythm. Left Ventricle * LVEF 65%. * Normal LV chamber size, wall thickness and function. * Indeterminate diastolic function. Right Ventricle * Normal right ventricular structure and function. Left Atrium * Normal left atrial size. Right Atrium * Normal right atrial size. Mitral Valve * Normal mitral valve structure. * No mitral stenosis. * No mitral regurgitation. Aortic Valve * No aortic regurgitation. * No aortic stenosis. * Aortic valve not well visualized. Tricuspid Valve * Tricuspid valve not well visualized. * No tricuspid regurgitation. * Estimated RA pressure is 15-20 mmHg. Pulmonic Valve * Pulmonic valve is not well visualized. * No pulmonic stenosis. * No pulmonic regurgitation. Pulmonary Artery * Pulmonary artery not well visualized. Aorta * Not well visualized. Pericardium * There is no pericardial effusion present. Interatrial Septum * No evidence of PFO by color Doppler. IVC * The IVC is dilated. * < 50% respiratory change. Consult Discharge Plan - Plan Referrals: John Inman MD [Primary Care Provider] - 12/09/17 8:30 am <Chaim Winchester - Last Filed: 12/03/17 13:44> Date of Encounter: 12/03/17 - Assessment and plan (1) Chest pain Current Visit: Yes Status: Acute Qualifiers: Chest pain type: other chest pain Qualified Code(s): R07.89 - Other chest pain; R07.8 - Other chest pain (2) Diabetes Current Visit: Yes Status: Chronic Qualifiers: 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 type: type 2 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 senior care insulin use: without terminal operator use 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 complication status: with neurologic complications 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 complication detail: with polyneuropathy Qualified Code(s): E11.42 - Type 2 diabetes mellitus with diabetic polyneuropathy (3) Tobacco abuse Current Visit: Yes Status: Chronic (4) GERD (gastroesophageal reflux disease) Current Visit: Yes Status: Chronic Qualifiers: Esophagitis presence: without esophagitis Qualified Code(s): K21.9 - Gastro -esophageal reflux disease without esophagitis (5) Community acquired pneumonia Current Visit: Yes Status: Acute Qualifiers: Laterality: right Lung location: lower lobe of lung Qualified Code(s): J18.1 - Lobar pneumonia, unspecified organism (6) COPD exacerbation Current Visit: Yes Status: Acute (7) HTN (hypertension) Current Visit: Yes Status: Chronic Qualifiers: Hypertension type: essential hypertension Qualified Code(s): I10 - Essential (primary) hypertension (8) Thyroid disease Current Visit: Yes Status: Chronic (9) DVT prophylaxis Current Visit: Yes Status: Acute (10) Acute on chronic respiratory failure with hypoxia Current Visit: Yes Status: Acute - Time Spent With Patient Total time spent is greater than 50% in coordination of care (as documented) at patient's floor/unit and/or counseling patient: - Constitutional Vitals: Temp Pulse Resp BP Pulse Ox 98 F 82 15 148/66 96 12/03/17 11:12 12/03/17 11:12 12/03/17 11:12 12/03/17 11:12 12/03/17 11:12 Internal Medicine: Result - Labs CBC & Chem 7: 12/03/17 04:30 12/03/17 04:30 Labs: Short CBC 12/03/17 Range/Units 04:30 WBC 16.6 H D (4.3-11.1) K/mcL Hgb 13.9 (11.5-15.4) g/dL Hct 42.8 (35.3-44.9) % Plt Count 242 (140-400) K/mcL Neutrophils # 14.2 H (1.6-8.9) K/mcL BMP 12/03/17 04:30 Sodium 138 Potassium 4.6 Chloride 103 Carbon Dioxide 28 BUN 20 Creatinine 0.60 Glucose 251 H Calcium 9.4 Cardiac Enzymes 12/02/17 12/02/17 Range/Units 16:24 22:34 Troponin I < 0.03 < 0.03 (< 0.04) ng/mL Liver Function 12/03/17 Range/Units 04:30 Total Bilirubin 0.2 L (0.3-1.0) mg/dL AST 16 (13-39) Units/L ALT 27 (7-52) Units/L Alkaline Phosphatase 69 (34-104) Units/L Albumin 4.1 (3.5-5.7) g/dL - Impressions Impressions Echocardiogram 12/02/17 18:25 Impressions: LVEF 65%. Indeterminate diastolic function. Normal right ventricular structure and function. No significant valvular dysfunction. Unable to estimate RVSP due to lack of TR signal. The IVC is dilated suggesting the presence of elevated RA pressures. Left Ventricular Wall Motion: Rest Echo Findings All wall segments showed normal motion. Findings: Study Quality * Technically adequate exam. ECG Findings * Normal sinus rhythm. Left Ventricle * LVEF 65%. * Normal LV chamber size, wall thickness and function. * Indeterminate diastolic function. Right Ventricle * Normal right ventricular structure and function. Left Atrium * Normal left atrial size. Right Atrium * Normal right atrial size. Mitral Valve * Normal mitral valve structure. * No mitral stenosis. * No mitral regurgitation. Aortic Valve * No aortic regurgitation. * No aortic stenosis. * Aortic valve not well visualized. Tricuspid Valve * Tricuspid valve not well visualized. * No tricuspid regurgitation. * Estimated RA pressure is 15-20 mmHg. Pulmonic Valve * Pulmonic valve is not well visualized. * No pulmonic stenosis. * No pulmonic regurgitation. Pulmonary Artery * Pulmonary artery not well visualized. Aorta * Not well visualized. Pericardium * There is no pericardial effusion present. Interatrial Septum * No evidence of PFO by color Doppler. IVC * The IVC is dilated. * < 50% respiratory change. - Attending Attestation Acute on chronic hypoxic respiratory failure secondary to acute COPD exacerbation due to community-acquired pneumonia unknown agent Continue Rocephin and azithromycin, continue Solu-Medrol IV Continue oxygen therapy and DuoNeb's Chest pain: 2nd part of the stress test in the morning, echocardiogram showed: EF 65% I examined this patient and my medical decision-making was reviewed with the Resident Physician. I agree with the documented findings, disposition and treatment plan as described except to the extent set forth below.
[2017-12-03] MEDS: MethylPREDNISolone 40 MG/ML VIAL IVP SCH ×2 (10:23→20:07)
[2017-12-03] MEDS: ALPRAZolam 0.25 MG TABLET PO PRN ×2 (10:35→22:35)
[2017-12-03] MEDS: cefTRIAXone 1,000 MG in Water for inj. (sterile) 20 ML 10 ML IVP SCH (16:12)
[2017-12-03] MEDS: Azithromycin 500 MG in D5% in Water 250 ML IVPB SCH (18:52)
--- NOTE | 2017-12-03 21:15 | Event Note ---
Date of Encounter: 12/03/17 Time of Encounter: 21:00 Notified by patient's nurse the patient feels as though her pneumonia is worsening. White count has increased from 8.6 yesterday to 16.6 today. Stat lactic acid ordered. Blood cultures 2 ordered. Pt. is currently on IVPB azithromycin and ceftriaxone. Will add IVPB vancomycin with pharmacy dosing to begin today. Legionella and strep pneumoniae antigens negative. Will continue to monitor pt. closely.
[2017-12-03] MEDS ORDERED: MethylPREDNISolone 40 MG/ML VIAL IVP ONE (21:50)
[2017-12-03] MEDS ORDERED: Vancomycin 1,750 MG in 0.9 % Sodium Chloride 250 ML IVPB SCH (22:00)
[2017-12-04] MEDS: Ipratropium/Albuterol Neb 3 ML IH SCH ×4 (04:32→22:27)
[2017-12-04] MEDS: *HR* Heparin 5,000 UNIT/ML VIAL SQ SCH ×3 (06:40→21:08)
[2017-12-04] MEDS: Thyroid (Amour) 30 MG TABLET PO SCH (06:41)
--- NOTE | 2017-12-04 06:46 | Electrocardiograph Report ---
[facility] Test Date: 2017-12-01 Pat Name: Pearl Archer Department: 103 Room: 3A14 Gender: F C Unix Developer: JULIO : 1965 Requested By: Addi Clancy Order Number: [id number] Reading MD: Roberto Phelps Measurements Intervals [place] Rate: 71 P: 32 SD: 202 QRS: 25 QRSD: 114 T: 39 QT: 388 QTc: 410 Interpretive Statements SINUS RHYTHM LOW QRS VOLTAGE IN PRECORDIAL LEADS [QRS DEFLECTION < 1.0 mV IN CHEST LEADS] MODERATE INTRAVENTRICULAR CONDUCTION DELAY [110+ ms QRS DURATION] Electronically Signed On 12-04-2017 6:45:06 EDT by Roberto Phelps
[2017-12-04 07:05] LABS: Basophils # 0.1 K/mcL (0.0-0.2); Basophils % 0.3 %; Hematocrit 42.3 % (35.3-44.9); Hemoglobin 13.4 g/dL (11.5-15.4); Immature Granulocytes % 2.1 % (0-4); Lymphocytes # 1.3 K/mcL (0.6-4.6); Lymphocytes % 8.3 %; Mean Corpuscular HGB Conc 31.7 g/dL (31.6-35.5); Mean Corpuscular Hemoglobin 29.8 pg (28.0-33.3); Mean Corpuscular Volume 94.2 fL (83.0-100.0); Mean Platelet Volume 11.1 fL (9.4-12.4); Monocytes # 0.6 K/mcL (0.0-1.3); Monocytes % 3.7 %; Neutrophils # 13.1 K/mcL (1.6-8.9); Platelet Count 218 K/mcL (140-400); Red Blood Count 4.49 M/mcL (3.82-4.97); Red Cell Distribution Width 13.4 % (11.5-14.5); Segmented Neutrophils % 85.6 %
[2017-12-04 07:24] LABS: BUN/Creatinine Ratio 29 (6-26); Blood Urea Nitrogen 16 mg/dL (6-20); Calcium 9.1 mg/dL (8.6-10.3); Carbon Dioxide 29 mEq/L (23-29); Chloride 104 mEq/L (98-107); Glucose 238 mg/dL (70-105); Osmolality,Calculated 297 (280-300); Potassium 4.4 mEq/L (3.5-5.1); Sodium 139 mEq/L (136-145); eGFR For African Americans > 60 (> 60); eGFR For Non-African Americans > 60 (> 60)
[2017-12-04] MEDS: Insulin LISPRO 300 UNITS/3 ML VIAL SQ SCH ×4 (09:14→21:02)
[2017-12-04] MEDS: Aspirin Enteric Coated 81 MG Tablet PO SCH (09:16)
[2017-12-04] MEDS: Nicotine 21 MG PATCH.TD24 TD SCH (09:16)
[2017-12-04] MEDS: MethylPREDNISolone 40 MG/ML VIAL IVP SCH ×2 (09:17→21:01)
[2017-12-04] MEDS ORDERED: Aminoglycoside Consult 1 EACH MC ONE (11:03)
[2017-12-04] MEDS: ALPRAZolam 0.25 MG TABLET PO PRN (14:34)
--- NOTE | 2017-12-04 15:51 | Internal Med Progress Note ---
<Addi Copeland - Last Filed: 12/04/17 15:49> Date of Encounter: 12/04/17 Time of Encounter: 14:30 - Assessment and plan (1) Community acquired pneumonia Current Visit: Yes Status: Acute Assessment and plan: Chest CTA concerning for right lower lobe community acquired pneumonia Leukocytosis, afebrile Patient reports improvement of dyspnea and cough. Lung examination demonstrated bilateral wheezing and diminished inspiratory Sounds - Patient was started on vancomycin last evening, did not believe there is risk for MRSA pneumonia at this time will discontinue. -continue Rocephin day 4 -continue azithromycin day 4 -continue supplemental oxygen, patient uses oxygen occasionally at home. Qualifiers: Laterality: right Lung location: lower lobe of lung Qualified Code(s): J18.1 - Lobar pneumonia, unspecified organism (2) COPD exacerbation Current Visit: Yes Status: Acute Assessment and plan: COPD exacerbation likely secondary to me acquired pneumonia. History of COPD on 3 L of oxygen as needed at home. SPO2 95% on 3L -Continue Solu-Medrol day 4 - increased to 60 mg IV twice a day -duonebs PRN -supplemental oxygen is needed -antibiotics as above (3) Chest pain Current Visit: Yes Status: Acute Assessment and plan: Atypical chest pain. Troponins negative x5 TTE: EF 65% EKG: NSR, no ischemic changes -Pharmacologic stress test-2 day negative for ischemia - No current chest pain or palpitations. Qualifiers: Chest pain type: other chest pain Qualified Code(s): R07.89 - Other chest pain; R07.8 - Other chest pain (4) Diabetes Current Visit: Yes Status: Chronic Assessment and plan: Hx of chronic diabetes controlled with oral antihyperglycemic medications -medium dose AM and low-dose HS correction insulin sliding scale, Accu check Qualifiers: 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 type: type 2 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 penitentiary insulin use: without penitentiary use 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 complication status: with neurologic complications 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 complication detail: with polyneuropathy Qualified Code(s): E11.42 - Type 2 diabetes mellitus with diabetic polyneuropathy (5) Tobacco abuse Current Visit: Yes Status: Chronic Assessment and plan: Current smoker since 10 years old. 2-3 PPD. No interest currently in quitting. 21 mg nicotine patch ordered. (6) GERD (gastroesophageal reflux disease) Current Visit: Yes Status: Chronic Assessment and plan: Hx of chronic GERD taking omeprazole -continue omeprazole and Zofran Qualifiers: Esophagitis presence: without esophagitis Qualified Code(s): K21.9 - Gastro -esophageal reflux disease without esophagitis (7) HTN (hypertension) Current Visit: Yes Status: Chronic Assessment and plan: History of hypertension taking lisinopril 5 mg. patient continues to have hypertension today- likely secondary to responsive illness. Continue lisinopril 10 mg will continue to monitor Qualifiers: Hypertension type: essential hypertension Qualified Code(s): I10 - Essential (primary) hypertension (8) Thyroid disease Current Visit: Yes Status: Chronic Assessment and plan: Hx of chronic thyroid disease. Pt. reports severe allergy to levothyroxin ( anaphylaxis). She takes her thyroid medication every few days. continue patient's [place] Thyroid. TSH 1.4 (normal) free T4 0.65 (minimally low) on evaluation (9) DVT prophylaxis Current Visit: Yes Status: Acute Assessment and plan: Heparin sq (10) Acute on chronic respiratory failure with hypoxia Current Visit: Yes Status: Acute Assessment and plan: Acute on chronic respiratory failure with hypoxia secondary to acute COPD exacerbation and community acquired pneumonia SPO2 95% on 3L -see plan above CTA chest done on admission: There is no evidence for aortic dissection or aneurysm. There is interstitial infiltrate at the posterior costophrenic angle on the right lower lobe. - Time Spent With Patient Total time spent is greater than 50% in coordination of care (as documented) at patient's floor/unit and/or counseling patient: - Subjective Interval history: Ms. Archer has been seen and evaluated patient bedside this morning. She is alert awake interactive in no acute distress. She continues to have a productive cough, rhonchi and some shortness of breath. She states that when she gets up to the bathroom she has tachycardia and this is not been a problem before. She denies any fevers, chills, diaphoresis, chest pain, abdominal pain , nausea vomiting diarrhea or constipation. - Constitutional Vitals: Temp Pulse Resp BP Pulse Ox 98.5 F 81 16 163/92 95 12/04/17 14:35 12/04/17 14:35 12/04/17 14:35 12/04/17 14:35 12/04/17 14:35 General appearance: Present: cooperative, A&O X 3, morbidly obese, pleasant, no acute distress, answers questions appropriately Exam: General: Patient alert, awake, oriented 3, interactive, in no acute distress HEENT: Normocephalic, atraumatic, pupils equal reactive to light, poor dentition , oral mucosa moist, uvula midline, neck supple trachea midline no palpable lymphadenopathy, no thyromegaly. Chest: Symmetric bilateral correlating with respiratory effort, effort nonlabored. Cardiac: Regular rate and rhythm, positive S1 and S2. no bruits appreciated bilateral carotids, Radial pulses 2+ bilateral, posterior tibial and dorsal pedal pulses 2+ bilateral. Respiratory: Diffuse wheezing, diminished inspiratory and expiratory breath sounds, coughing Abdomen: Soft, nontender, positive bowel sounds, no palpable masses appreciated on examination Extremities: Symmetric bilateral, bilateral lower extremities without erythema or edema patient moving all 4 extremities spontaneously. Neurologic: No focal deficits appreciated on examination. Face symmetric, muscle strength symmetric bilateral upper and lower extremities. Internal Medicine: Result - Labs CBC & Chem 7: 12/04/17 06:06 12/04/17 06:06 Labs: Short CBC 12/04/17 Range/Units 06:06 WBC 15.3 H (4.3-11.1) K/mcL Hgb 13.4 (11.5-15.4) g/dL Hct 42.3 (35.3-44.9) % Plt Count 218 (140-400) K/mcL Neutrophils # 13.1 H (1.6-8.9) K/mcL BMP 12/04/17 06:06 Sodium 139 Potassium 4.4 Chloride 104 Carbon Dioxide 29 BUN 16 Creatinine 0.55 L Glucose 238 H Calcium 9.1 - Impressions Impressions Soft Tissue Neck CT 12/03/17 14:16 IMPRESSION: Limited exam without IV contrast No focal mass lesion. D/ / Antonio Montemayor / Antonio Montemayor Interpreting Provider: Antonio Montemayor Consult Discharge Plan - Plan Referrals: John Inman MD [Primary Care Provider] - 12/09/17 8:30 am <Chaim Winchester - Last Filed: 12/04/17 16:44> Date of Encounter: 12/04/17 - Assessment and plan (1) Chest pain Current Visit: Yes Status: Acute Qualifiers: Chest pain type: other chest pain Qualified Code(s): R07.89 - Other chest pain; R07.8 - Other chest pain (2) Diabetes Current Visit: Yes Status: Chronic Qualifiers: 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 type: type 2 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 penitentiary insulin use: without penitentiary use 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 complication status: with neurologic complications 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 complication detail: with polyneuropathy Qualified Code(s): E11.42 - Type 2 diabetes mellitus with diabetic polyneuropathy (3) Tobacco abuse Current Visit: Yes Status: Chronic (4) GERD (gastroesophageal reflux disease) Current Visit: Yes Status: Chronic Qualifiers: Esophagitis presence: without esophagitis Qualified Code(s): K21.9 - Gastro -esophageal reflux disease without esophagitis (5) Community acquired pneumonia Current Visit: Yes Status: Acute Qualifiers: Laterality: right Lung location: lower lobe of lung Qualified Code(s): J18.1 - Lobar pneumonia, unspecified organism (6) COPD exacerbation Current Visit: Yes Status: Acute (7) HTN (hypertension) Current Visit: Yes Status: Chronic Qualifiers: Hypertension type: essential hypertension Qualified Code(s): I10 - Essential (primary) hypertension (8) Thyroid disease Current Visit: Yes Status: Chronic (9) DVT prophylaxis Current Visit: Yes Status: Acute (10) Acute on chronic respiratory failure with hypoxia Current Visit: Yes Status: Acute - Time Spent With Patient Total time spent is greater than 50% in coordination of care (as documented) at patient's floor/unit and/or counseling patient: - Constitutional Vitals: Temp Pulse Resp BP Pulse Ox 98.5 F 81 16 163/92 95 12/04/17 14:35 12/04/17 14:35 12/04/17 14:35 12/04/17 14:35 12/04/17 14:35 Internal Medicine: Result - Labs CBC & Chem 7: 12/04/17 06:06 12/04/17 06:06 Labs: Short CBC 12/04/17 Range/Units 06:06 WBC 15.3 H (4.3-11.1) K/mcL Hgb 13.4 (11.5-15.4) g/dL Hct 42.3 (35.3-44.9) % Plt Count 218 (140-400) K/mcL Neutrophils # 13.1 H (1.6-8.9) K/mcL BMP 12/04/17 06:06 Sodium 139 Potassium 4.4 Chloride 104 Carbon Dioxide 29 BUN 16 Creatinine 0.55 L Glucose 238 H Calcium 9.1 - Attending Attestation Acute on chronic hypoxic respiratory failure secondary to acute COPD exacerbation due to community-acquired pneumonia unknown agent Continue Rocephin and azithromycin, continue Solu-Medrol IV Continue oxygen therapy and DuoNeb's Chest pain: stress test in the morning negative for ischemia, echocardiogram showed: EF 65% I examined this patient and my medical decision-making was reviewed with the Resident Physician. I agree with the documented findings, disposition and treatment plan as described except to the extent set forth below.
[2017-12-04] MEDS: cefTRIAXone 1,000 MG in Water for inj. (sterile) 20 ML 10 ML IVP SCH (16:45)
[2017-12-04] MEDS: Azithromycin 500 MG in D5% in Water 250 ML IVPB SCH (18:05)
[2017-12-05] MEDS: Ipratropium/Albuterol Neb 3 ML IH SCH ×2 (04:03→11:02)
[2017-12-05] MEDS: *HR* Heparin 5,000 UNIT/ML VIAL SQ SCH (05:02)
[2017-12-05] MEDS: Thyroid (Amour) 30 MG TABLET PO SCH (05:30)
[2017-12-05 05:53] LABS: Basophils % 0.3 %; Hematocrit 41.7 % (35.3-44.9); Hemoglobin 13.4 g/dL (11.5-15.4); Immature Granulocytes % 1.7 % (0-4); Lymphocytes # 1.3 K/mcL (0.6-4.6); Lymphocytes % 10.7 %; Mean Corpuscular HGB Conc 32.1 g/dL (31.6-35.5); Mean Corpuscular Hemoglobin 29.5 pg (28.0-33.3); Mean Corpuscular Volume 91.9 fL (83.0-100.0); Mean Platelet Volume 10.2 fL (9.4-12.4); Monocytes # 0.5 K/mcL (0.0-1.3); Monocytes % 4.1 %; Neutrophils # 10.2 K/mcL (1.6-8.9); Platelet Count 226 K/mcL (140-400); Red Blood Count 4.54 M/mcL (3.82-4.97); Red Cell Distribution Width 13.1 % (11.5-14.5); Segmented Neutrophils % 83.2 %
[2017-12-05 06:17] LABS: Alanine Aminotransferase 39 Units/L (7-52); Albumin 4.3 g/dL (3.5-5.7); Alkaline Phosphatase 72 Units/L (34-104); Aspartate Amino Transferase 17 Units/L (13-39); BUN/Creatinine Ratio 32 (6-26); Bilirubin,Total 0.3 mg/dL (0.3-1.0); Blood Urea Nitrogen 18 mg/dL (6-20); Calcium 9.4 mg/dL (8.6-10.3); Carbon Dioxide 28 mEq/L (23-29); Chloride 102 mEq/L (98-107); Globulin 2.2 g/dL (2.4-3.5); Glucose 234 mg/dL (70-105); Osmolality,Calculated 297 (280-300); Potassium 4.3 mEq/L (3.5-5.1); Sodium 139 mEq/L (136-145); Total Protein 6.5 g/dL (6.4-8.9); eGFR For African Americans > 60 (> 60); eGFR For Non-African Americans > 60 (> 60)
[2017-12-05 07:03] VITALS: BP 180/101
--- NOTE | 2017-12-05 07:05 | Discharge Summary ---
<Addi Copeland Chris - Last Filed: 12/05/17 08:11> Orders not resulted at time of discharge: Pending orders 12/02/17 15:02 NM tomas perf SPECT multi [NM] Routine 12/03/17 21:52 Culture,Blood [BC] Stat Culture,Blood,Additional [BC] Stat 12/05/17 09:00 Vancomycin,Trough ONCE Date of Encounter: 12/05/17 Time of Encounter: 07:04 - Discharge Diagnosis (1) Community acquired pneumonia Priority: Primary Status: Acute Qualifiers: Laterality: right Lung location: lower lobe of lung Qualified Code(s): J18.1 - Lobar pneumonia, unspecified organism (2) COPD exacerbation Priority: Primary Status: Acute (3) Chest pain Priority: Secondary Status: Acute Qualifiers: Chest pain type: other chest pain Qualified Code(s): R07.89 - Other chest pain; R07.8 - Other chest pain (4) Diabetes Priority: Secondary Status: Chronic Qualifiers: 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 type: type 2 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 insulin use: without termite renewal inspector use 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 complication status: with neurologic complications 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 complication detail: with polyneuropathy Qualified Code(s): E11.42 - Type 2 diabetes mellitus with diabetic polyneuropathy (5) Tobacco abuse Priority: Secondary Status: Chronic (6) GERD (gastroesophageal reflux disease) Priority: Secondary Status: Chronic Qualifiers: Esophagitis presence: without esophagitis Qualified Code(s): K21.9 - Gastro -esophageal reflux disease without esophagitis (7) HTN (hypertension) Priority: Secondary Status: Chronic Qualifiers: Hypertension type: essential hypertension Qualified Code(s): I10 - Essential (primary) hypertension (8) Thyroid disease Priority: Secondary Status: Chronic (9) DVT prophylaxis Priority: Secondary Status: Acute (10) Acute on chronic respiratory failure with hypoxia Priority: Primary Status: Acute Hospital course: Ms. Archer is a 52 year old female significant past oral history of COPD, pneumonia, lupus, arthritis, diabetes, hypertension, hyperlipidemia, obesity, GERD, venous stasis and hypothyroidism presents the emergency department on 06/2018 with acute respiratory distress, chest discomfort, increased oxygen demand, increased sputum production with changing color phlegm. The emergency department should workup for chest pain shortness of breath provided, aspirin, chest x-ray demonstrated no acute findings, troponins 3 were <0.03, EKG without any acute ST elevations or depressions in normal sinus rhythm. CTA of the chest demonstrated right lower lobe interstitial infiltrate, negative for aortic dissection, noticed was fatty infiltrate of the liver and probable adrenal hyperplasia. Laboratory findings she was significant have a glucose of 411 and a bicarbonate of 30. Respiratory infectious panel was negative. She was started on IV steroids, nasal cannula oxygen, bronchodilators and divided Rocephin and azithromycin. Streptococcus pneumonia antigen was positive. She was admitted to the general medical floor and seen by the hospitalist service. She was diagnosed with community acquired pneumonia, COPD exacerbation and she was worked up for chest pain given her risk factors she underwent a 2 day nuclear medicine stress test which was negative for ischemia. Transthoracic echocardiogram demonstrated ejection fraction of 65%, indeterminate diastolic function and normal right ventricular structure and function. Throughout her inpatient stay she was treated for her chronic medical conditions. She difficulty weaning oxygen and required IV steroids and bronchodilators throughout her inpatient stay. She steadily improved and was seen on 2017 deemed stable for discharge with close follow-up with her primary care provider. She was provided a 21 day taper of by mouth prednisone, 3 more days of Omnicef by mouth, discharged with antihypertensive medications lisinopril 10 mg and HCTZ 12.5 given hypertension throughout her inpatient stay. Mrs. Archer understands and agrees with the plan of discharge. - Time Spent with Patient Total time spent providing and/or coordinating discharge services: - Discharge Medications Prescriptions: Cefdinir [Omnicef] 300 mg PO BID 3 Days #6 capsule hydroCHLOROthiazide [Hydrochlorothiazide] 12.5 mg PO DAILY 30 Days #30 tablet Lisinopril [Zestril] 10 mg PO DAILY 30 Days #30 tablet predniSONE [PredniSONE] 40 mg PO DAILY 21 Days #28 tablet Home Medications: Albuterol Sulfate [Proair Hfa] 1 - 2 puff IH Q4H PRN 05/13/16 [History] Montelukast [Singulair] 10 mg PO DAILY 05/13/16 [History] Omeprazole [PriLOSEC] 40 mg PO BID 05/13/16 [History] Thyroid,Pork [[place] Thyroid] 90 mg PO DAILY 05/13/16 [History] Ipratropium/Albuterol Neb [Duoneb] 3 ml IH Q6HR PRN 05/14/16 [History] Nitroglycerin [Nitrostat] 0.4 mg SL AD PRN 05/14/16 [History] EPINEPHrine [Epipen] 0.3 mg IM ONCE PRN 12/16/16 [History] HydrOXYzine 10 mg PO QID PRN 12/16/16 [History] Metformin HCl [Glucophage] 1,000 mg PO BID 12/16/16 [History] Oxygen 3 l NS AD PRN 12/16/16 [History] Linagliptin [Tradjenta] 5 mg PO DAILY 12/01/17 [History] Naproxen Sodium [Aleve] 220 mg PO BID PRN 12/01/17 [History] Cefdinir [Omnicef] 300 mg PO BID 3 Days #6 capsule 12/05/17 [Rx] Lisinopril [Zestril] 10 mg PO DAILY 30 Days #30 tablet 12/05/17 [Rx] hydroCHLOROthiazide [Hydrochlorothiazide] 12.5 mg PO DAILY 30 Days #30 tablet [Rx] predniSONE [PredniSONE] 40 mg PO DAILY 21 Days #28 tablet 12/05/17 [Rx] Allergies/Adverse Reactions: 3 Allergy/AdvReac Type Severity Reaction Status Date / Time Amoxicillin Allergy Difficulty Verified 12/01/17 13:59 Breathing codeine Allergy Anaphylaxis Verified 12/01/17 13:59 [From Tylenol-Codeine #3] levofloxacin [From Levaquin] Allergy Anaphylaxis Verified 12/01/17 13:59 levothyroxine sodium Allergy Anaphylaxis Verified 12/01/17 13:59 Penicillins Allergy Anaphylaxis Verified 12/01/17 13:59 Date of admission: 12/01/17 18:15 Primary care physician: John Inman MD Discharging clinician: Addi Copeland Anticipated date of discharge: 12/05/17 - Constitutional Vitals: Temp Pulse Resp BP Pulse Ox 97.6 F 60 16 180/101 94 12/05/17 06:52 12/05/17 06:52 12/05/17 06:52 12/05/17 06:52 12/05/17 06:52 General appearance: Present: cooperative, A&O X 3, morbidly obese, pleasant, no acute distress, answers questions appropriately Exam: General: Patient alert, awake, oriented 3, interactive, in no acute distress HEENT: Normocephalic, atraumatic, pupils equal reactive to light, poor dentition , oral mucosa moist, uvula midline, neck supple trachea midline no palpable lymphadenopathy, no thyromegaly. Chest: Symmetric bilateral correlating with respiratory effort, effort nonlabored. Cardiac: Regular rate and rhythm, positive S1 and S2. no bruits appreciated bilateral carotids, Radial pulses 2+ bilateral, posterior tibial and dorsal pedal pulses 2+ bilateral. Respiratory: CTABL Abdomen: Soft, nontender, positive bowel sounds, no palpable masses appreciated on examination Extremities: Symmetric bilateral, bilateral lower extremities without erythema or edema patient moving all 4 extremities spontaneously. Neurologic: No focal deficits appreciated on examination. Face symmetric, muscle strength symmetric bilateral upper and lower extremities. - Patient Status Disposition: Home, Self-Care Condition: Fair Functional capacity at discharge: independent ambulation Overall status at discharge: patient is progressing back to baseline - Discharge Instructions Instructions: Chronic Obstructive Pulmonary Disease (DC), Pneumonia (DC) Follow Up With: John Inman MD [Primary Care Provider] - 12/09/17 8:30 am Additional Instructions: 1. Follow-up with your primary care provider in the next 3-5 days 2. Take all prescriptions as prescribed, any concerns or questions contact her primary care provider. 3. Return to the emergency department if: Worsening shortness of breath, chest discomfort or chest pain. - Diet and Activity Activity: increase activity as tolerated Diet: diabetic diet, low fat, low cholesterol, low salt diet <Chaim Winchester H - Last Filed: 12/05/17 11:06> Orders not resulted at time of discharge: Pending orders 12/02/17 15:02 NM tomas perf SPECT multi [NM] Routine 12/03/17 21:52 Culture,Blood [BC] Stat Culture,Blood,Additional [BC] Stat Date of Encounter: 12/05/17 - Discharge Diagnosis (1) Chest pain Status: Acute Qualifiers: Chest pain type: other chest pain Qualified Code(s): R07.89 - Other chest pain; R07.8 - Other chest pain (2) Diabetes Status: Chronic Qualifiers: 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 type: type 2 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 custodial insulin use: without custodial use 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 complication status: with neurologic complications 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 complication detail: with polyneuropathy Qualified Code(s): E11.42 - Type 2 diabetes mellitus with diabetic polyneuropathy (3) Tobacco abuse Status: Chronic (4) GERD (gastroesophageal reflux disease) Status: Chronic Qualifiers: Esophagitis presence: without esophagitis Qualified Code(s): K21.9 - Gastro -esophageal reflux disease without esophagitis (5) Community acquired pneumonia Status: Acute Qualifiers: Laterality: right Lung location: lower lobe of lung Qualified Code(s): J18.1 - Lobar pneumonia, unspecified organism (6) COPD exacerbation Status: Acute (7) HTN (hypertension) Status: Chronic Qualifiers: Hypertension type: essential hypertension Qualified Code(s): I10 - Essential (primary) hypertension (8) Thyroid disease Status: Chronic (9) DVT prophylaxis Status: Acute (10) Acute on chronic respiratory failure with hypoxia Status: Acute Hospital course: Ms. Archer is a 52 year old female - Time Spent with Patient Total time spent providing and/or coordinating discharge services: Date of admission: 12/01/17 18:15 Primary care physician: John Inman MD - Constitutional Vitals: Temp Pulse Resp BP Pulse Ox 97.6 F 60 16 180/101 94 12/05/17 06:52 12/05/17 06:52 12/05/17 06:52 12/05/17 06:52 12/05/17 06:52 - Attending Attestation Acute on chronic hypoxic respiratory failure secondary to acute COPD exacerbation due to community-acquired pneumonia unknown agent Continue cefdinir, slow prednisone taper Continue oxygen therapy Chest pain: stress test in the morning negative for ischemia, echocardiogram showed: EF 65% time spent 40 min I examined this patient and my medical decision-making was reviewed with the Resident Physician. I agree with the documented findings, disposition and treatment plan as described except to the extent set forth below.
[2017-12-05] MEDS ORDERED: Azithromycin 250 MG TABLET PO SCH (08:03)
[2017-12-05] MEDS: Aspirin Enteric Coated 81 MG Tablet PO SCH (08:05)
[2017-12-05] MEDS: ALPRAZolam 0.25 MG TABLET PO PRN (08:05)
[2017-12-05] MEDS: MethylPREDNISolone 40 MG/ML VIAL IVP SCH (08:06)
[2017-12-05] MEDS: Insulin LISPRO 300 UNITS/3 ML VIAL SQ SCH (08:06)
[2017-12-05] MEDS: Nicotine 21 MG PATCH.TD24 TD SCH (08:09)
[2017-12-05] MEDS: cefTRIAXone 1,000 MG in Water for inj. (sterile) 20 ML 10 ML IVP SCH (08:31)
--- NOTE | 2017-12-10 08:20 | Electrocardiograph Report ---
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
--- NOTE | 2017-12-10 08:23 | Electrocardiograph Report ---
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
== END 2017-12-05 11:04 | disposition home or self-care (01) | DRG 193 ==
LOC: EMEROO 12:53 → 3ANU 12:53
PROVIDERS: ADMIT Internal Medicine; ATTEND Internal Medicine

== ENCOUNTER 2018-01-05 22:49 | Inpatient (IN) ==
[2018-01-05] MEDS ORDERED: Isovue-370 500 ML INFUS..BTL IV ONE (23:09)
[2018-01-05] MEDS ORDERED: *HR* FentaNYL (PF) 100 MCG/2 ML VIAL IVP ONE (23:10)
--- NOTE | 2018-01-05 23:11 | Emergency Department Note ---
START Narrative - START START: I examined this patient and my medical decision-making was reviewed with the Resident Physician. I agree with the documented findings, disposition and treatment plan as described except to the extent set forth below. 52 yo F here for sores to abdominal wall. red, indurated. had I and D done by dermatology in past week. worsening sx now. feels sick. multiple red sores over abd anteriorly. will check labs, CT scan with contrast to eval for abscess. vss
[2018-01-05 23:24] LABS: Basophils # 0.1 K/mcL (0.0-0.2); Basophils % 0.3 %; Eosinophils # 0.3 K/mcL (0.0-0.6); Eosinophils % 2.1 %; Hematocrit 40.6 % (35.3-44.9); Immature Granulocytes % 0.6 % (0-4); Lymphocytes # 2.7 K/mcL (0.6-4.6); Lymphocytes % 18.8 %; Mean Corpuscular HGB Conc 34.5 g/dL (31.6-35.5); Mean Corpuscular Hemoglobin 31.7 pg (28.0-33.3); Mean Corpuscular Volume 91.9 fL (83.0-100.0); Mean Platelet Volume 9.9 fL (9.4-12.4); Monocytes # 1.1 K/mcL (0.0-1.3); Monocytes % 7.2 %; Neutrophils # 10.3 K/mcL (1.6-8.9); Platelet Count 235 K/mcL (140-400); Red Blood Count 4.42 M/mcL (3.82-4.97); Red Cell Distribution Width 13.7 % (11.5-14.5)
[2018-01-05 23:31] LABS: Bilirubin,Urine Negative (Negative); Blood,Urine Negative (Negative); Clarity,Urine Cloudy (Clear); Color,Urine Yellow (Yellow); Glucose,Urine (UA) Normal (Normal); Ketones,Urine Negative (Negative); Leukocyte Esterase,Urine Trace (Negative); Nitrite,Urine Negative (Negative); Protein,Urine Negative (Neg-Trace); Specific Gravity,Urine 1.006 (1.010-1.025); Urobilinogen,Urine Normal (Normal)
[2018-01-05 23:33] LABS: Bacteria,Urine None Seen per hpf (None-Few); Hyaline Casts,Urine None Seen per lpf (None-Few); RBC,Urine 0-3 per hpf (0-3); Squamous Epithelial Cell,Urine Many per lpf (None-Few)
[2018-01-05] MEDS ORDERED: 0.9 % Sodium Chloride 1,000 ML IVC ONE (23:38)
--- NOTE | 2018-01-05 23:39 | Emergency Department Note ---
Disposition Clinical Impression: Abdominal wall cellulitis Disposition: Admitted As Inpatient Condition: Good Referrals: John Inman MD [Primary Care Provider] - Forms: Work/School Release, ED Satisfaction Letter General Adult HPI - General Chief complaint: ED Fever Stated complaint: fever sores all over Time Seen by Provider: 01/05/18 22:59 Source: patient Mode of arrival: private vehicle Limitations: no limitations Nursing Notes Reviewed: Yes Vital Signs Reviewed: Yes - History of Present Illness HPI Narrative: 52-year-old female history of diabetes who presents to the ER with a chief complaint of "sores all over". Patient states it started on her abdomen roughly 1 month ago. She was admitted and has been on antibiotics for the last 4 days namely clindamycin. She then followed up with her primary care provider who referred her to dermatology. States that they cut open a spot on her abdomen but she is unsure if they biopsied or drained the area. She has been on clindamycin because they thought she had a staph infection. She reports compliance with her medications. Reports subjective fevers at home. She's has felt nauseous no vomiting. Reports she has some pain under her arms. She is diabetic. No other complaints. Pt Subjective Complaint: Fever, abdominal source Onset (ago): day(s) Location: abdomen, left, right, upper extremity Pain Scale: 10 Improves with: nothing Worsens with: nothing Associated symptoms: Reports: fever/chills, nausea/vomiting Treatments Prior to Arrival: other (Antibiotics) - Related Data Home Medications Medication Instructions Recorded Confirmed Albuterol Sulfate [Proair Hfa] 1 - 2 puff IH Q4H PRN 05/13/16 12/01/17 Montelukast [Singulair] 10 mg PO DAILY 05/13/16 12/01/17 Omeprazole [PriLOSEC] 40 mg PO BID 05/13/16 12/01/17 Thyroid,Pork [[place] Thyroid] 90 mg PO DAILY 05/13/16 12/01/17 Ipratropium/Albuterol Neb [Duoneb] 3 ml IH Q6HR PRN 05/14/16 12/01/17 Nitroglycerin [Nitrostat] 0.4 mg SL AD PRN 05/14/16 12/01/17 EPINEPHrine [Epipen] 0.3 mg IM ONCE PRN 12/16/16 12/01/17 HydrOXYzine 10 mg PO QID PRN 12/16/16 12/01/17 Metformin HCl [Glucophage] 1,000 mg PO BID 12/16/16 12/01/17 Oxygen 3 l NS AD PRN 12/16/16 12/01/17 Linagliptin [Tradjenta] 5 mg PO DAILY 12/01/17 12/01/17 Naproxen Sodium [Aleve] 220 mg PO BID PRN 12/01/17 12/01/17 Previous Rx's Medication Instructions Recorded Cefdinir [Omnicef] 300 mg PO BID 3 Days #6 capsule 12/05/17 Lisinopril [Zestril] 10 mg PO DAILY 30 Days #30 tablet 12/05/17 hydroCHLOROthiazide 12.5 mg PO DAILY 30 Days #30 tablet 12/05/17 [Hydrochlorothiazide] predniSONE [PredniSONE] 40 mg PO DAILY 21 Days #28 tablet 12/05/17 Clindamycin [Cleocin] 300 mg PO Q8HR #60 capsule 01/01/18 Allergies Allergy/AdvReac Type Severity Reaction Status Date / Time Amoxicillin Allergy Difficulty Verified 01/01/18 19:45 Breathing codeine Allergy Anaphylaxis Verified 01/01/18 19:45 [From Tylenol-Codeine #3] levofloxacin [From Levaquin] Allergy Anaphylaxis Verified 01/01/18 19:45 levothyroxine sodium Allergy Anaphylaxis Verified 01/01/18 19:45 Penicillins Allergy Anaphylaxis Verified 01/01/18 19:45 All systems ED: reviewed and negative except as stated. Constitutional: Reports: fever (Subjective) Gastrointestinal: Reports: abdominal pain, nausea. Denies: vomiting, diarrhea Integumentary: Reports: lesions Past Medical History - Past Medical History Attestation: Yes The following information was validated with the patient. 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 history - Social History Smoking Status: Current every day smoker Smokeless Tobacco Status: No Alcohol use: Reports: rarely Drug use: Reports: none Physical Exam - General Limitations: no limitations General appearance: alert, anxious - Head Head exam: atraumatic, normocephalic - Eye Eye exam: Present: normal appearance - ENT ENT exam: normal exam - Neck Neck exam: Present: normal inspection - Chest Chest inspection: Present: normal inspection, symmetric chest wall rise - Respiratory Respiratory exam: Present: normal lung sounds bilaterally - Cardiovascular Cardiovascular exam: Present: normal rhythm, tachycardia, normal heart sounds - Abdominal Exam Abdominal exam: Present: soft, tenderness (Patient has periumbilical abdominal tenderness. She has a moderate-sized area of cellulitis over the anterior abdomen with indurated changes around the central area with one suture in place. No expressible drainage from the site. No fluctuance palpated.) - Extremities Exam Extremities exam: Present: normal inspection, full ROM - Expanded Upper Extremity Exam Shoulder exam: Present: normal inspection, full ROM Arm exam: Present: normal inspection, full ROM Elbow exam: Present: normal inspection, full ROM Forearm/Wrist exam: Present: normal inspection, full ROM Hand exam: Present: normal inspection, full ROM - Expanded Lower Extremity Exam Hip/Pelvis exam: Present: normal inspection, full ROM Upper leg exam: Present: normal inspection, full ROM Knee exam: Present: normal inspection, full ROM Lower leg exam: Present: normal inspection, full ROM Ankle exam: Present: normal inspection, full ROM Foot/toe exam: Present: normal inspection, full ROM - Skin Skin exam: Present: erythema (Erythema to the anterior abdomen with a prior incised area with sutures in place without expressible drainage.) Course Course Narrative: Patient seen and examined. Vital signs reviewed. Plan for CT for evaluation of potential abdominal wall abscess as well as labs. patient given IV fluids. - Reevaluation(s) Reevaluation #1: Discussed results of imaging labs with the patient. We will give her dose of IV vancomycin and admit for failed outpatient therapy abdominal wall cellulitis. Vital Signs Temperature 98.1 F 01/05/18 22:50 Pulse Rate 107 01/05/18 22:50 Respiratory Rate 22 01/05/18 22:50 Blood Pressure 152/83 01/05/18 22:50 O2 Sat by Pulse Oximetry 96 01/05/18 22:50 Temperature 98.1 F 01/05/18 22:50 Pulse Rate 107 01/05/18 22:50 Respiratory Rate 22 01/05/18 22:50 Blood Pressure 152/83 01/05/18 22:50 O2 Sat by Pulse Oximetry 96 01/05/18 22:50 Oxygen Delivery Oxygen Delivery Room Air Medical Decision Making - MDM Narrative Medical decision making narrative: 52-year-old female presents due to abdominal wall cellulitis. She has had cellulitis for roughly 1 month. She was recently on antibiotics as an outpatient. Incision and drainage performed on Wednesday. Noted to have a leukocytosis here of 14.5. CT demonstrates abdominal wall cellulitis without abscess collection. Patient given IV vancomycin. For abdominal wall cellulitis , failed outpatient therapy. - Lab Data Lab results reviewed: Yes I reviewed the patient's lab results. Result diagrams: 01/05/18 23:15 01/05/18 23:15 Lab Results 01/05/18 01/05/18 01/05/18 Range/Units 23:15 23:15 23:18 WBC 14.5 H (4.3-11.1) K/mcL RBC 4.42 (3.82-4.97) M/mcL Hgb 14.0 (11.5-15.4) g/dL Hct 40.6 (35.3-44.9) % MCV 91.9 (83.0-100.0) fL MCH 31.7 (28.0-33.3) pg MCHC 34.5 (31.6-35.5) g/dL RDW 13.7 (11.5-14.5) % Plt Count 235 (140-400) K/mcL MPV 9.9 (9.4-12.4) fL Immature Gran % 0.6 (0-4) % Seg Neutrophils % 71.0 % Lymphocytes % 18.8 % Monocytes % 7.2 % Eosinophils % 2.1 % Basophils % 0.3 % Neutrophils # 10.3 H (1.6-8.9) K/mcL Lymphocytes # 2.7 (0.6-4.6) K/mcL Monocytes # 1.1 (0.0-1.3) K/mcL Eosinophils # 0.3 (0.0-0.6) K/mcL Basophils # 0.1 (0.0-0.2) K/mcL Sodium 137 (136-145) mEq/L Potassium 3.8 (3.5-5.1) mEq/L Chloride 105 (98-107) mEq/L Carbon Dioxide 25 (23-29) mEq/L BUN 11 (6-20) mg/dL Creatinine 0.59 L (0.60-1.20) mg/dL Est GFR ( Amer) > 60 (> 60) Est GFR (Non-Af Amer) > 60 (> 60) BUN/Creatinine Ratio 19 (6-26) Glucose 120 H (70-105) mg/dL Calculated Osmolality 285 (280-300) Calcium 9.5 (8.6-10.3) mg/dL Total Bilirubin 0.4 (0.3-1.0) mg/dL Direct Bilirubin 0.1 (0.0-0.2) mg/dL Indirect Bilirubin 0.3 (0.0-1.2) mg/dL AST 10 L (13-39) Units/L ALT 16 (7-52) Units/L Alkaline Phosphatase 73 (34-104) Units/L Serum Total Protein 6.9 (6.4-8.9) g/dL Albumin 3.9 (3.5-5.7) g/dL Globulin 3.0 (2.4-3.5) g/dL Albumin/Globulin Ratio 1.3 (1.1-2.2) Lipase 16 (11-82) Units/L Urine Color Yellow (Yellow) Urine Clarity Cloudy A (Clear) Urine pH 7.0 (5.0-8.0) pH Units Ur Specific [place] 1.006 L (1.010-1.025) Urine Protein Negative (Neg-Trace) mg/dL Urine Glucose (UA) Normal (Normal) mg/dL Urine Ketones Negative (Negative) mg/dL Urine Blood Negative (Negative) Urine Nitrite Negative (Negative) Urine Bilirubin Negative (Negative) Urine Urobilinogen Normal (Normal) mg/dL Ur Leukocyte Esterase Trace H (Negative) Urine Microscopic RBC 0-3 (0-3) per hpf Urine Microscopic WBC 5-15 H (0-3) per hpf Ur Squamous Epith Cells Many H (None-Few) per lpf Urine Bacteria None Seen (None-Few) per hpf Hyaline Casts None Seen (None-Few) per lpf Ur Culture Indicated? NO. A (NO) - Radiology Data Radiology results reviewed: Yes I reviewed the patient's radiology results. Abdomen/Pelvis CT 01/06/18 23:09 IMPRESSION: Cellulitis without evidence for abscess. D/ / Robert Alexander MD / Robert Alexander MD Interpreting Provider: Robert Alexander MD S.Jono - Laurent Situation: Demographics, MOA Background: Presenting Complaint, Relevant PMH, Meds, & Allergies Assessment: Vital Signs, Course and respsone to treatment, Exam Concerns, Patient/Family Expectation, Pertinant Lab Results Recommendation: Barrier(s) to disposition, Recommendation based on pending studies, treatments, or consults S.Jono Report Given to: Dr. Milagros Mancilla Repor Time: 01:31
[2018-01-05 23:49] LABS: Alanine Aminotransferase 16 Units/L (7-52); Albumin 3.9 g/dL (3.5-5.7); Albumin/Globulin Ratio 1.3 (1.1-2.2); Alkaline Phosphatase 73 Units/L (34-104); Aspartate Amino Transferase 10 Units/L (13-39); BUN/Creatinine Ratio 19 (6-26); Bilirubin,Direct 0.1 mg/dL (0.0-0.2); Bilirubin,Indirect 0.3 mg/dL (0.0-1.2); Bilirubin,Total 0.4 mg/dL (0.3-1.0); Blood Urea Nitrogen 11 mg/dL (6-20); Calcium 9.5 mg/dL (8.6-10.3); Carbon Dioxide 25 mEq/L (23-29); Chloride 105 mEq/L (98-107); Glucose 120 mg/dL (70-105); Lipase 16 Units/L (11-82); Osmolality,Calculated 285 (280-300); Potassium 3.8 mEq/L (3.5-5.1); Sodium 137 mEq/L (136-145); Total Protein 6.9 g/dL (6.4-8.9); eGFR For African Americans > 60 (> 60); eGFR For Non-African Americans > 60 (> 60)
[2018-01-06] MEDS ORDERED: Vancomycin 1,750 MG in 0.9 % Sodium Chloride 250 ML IVPB ONE (01:19)
[2018-01-06] MEDS ORDERED: Naloxone 0.4 MG/ML INJ IVP PRN (03:51)
[2018-01-06] MEDS ORDERED: hydroCHLOROthiazide 25 MG TABLET PO PRN (03:54)
[2018-01-06] MEDS ORDERED: *HR* Dextrose 50 % in Water (Syg) 50 ML SYRINGE IVP PRN (03:54)
[2018-01-06] MEDS ORDERED: Dextrose Gel 15 GM/37.5 ML TUBE PO PRN ×2 (03:54)
[2018-01-06] MEDS ORDERED: NON-FORMULARY MEDICATION 1 EACH EACH (Oxygen [Oxygen] 3 L) NS PRN (03:54)
[2018-01-06] MEDS ORDERED: Ipratropium/Albuterol Neb 3 ML IH PRN (03:54)
[2018-01-06] MEDS ORDERED: Nitroglycerin 0.4 MG TAB.SUBL SL PRN (03:54)
[2018-01-06] MEDS ORDERED: D5% in Water 1,000 ML IVC PRN (03:54)
--- NOTE | 2018-01-06 03:59 | Internal Med History&Physical ---
Date of Encounter: 01/06/18 Time of Encounter: 03:30 Internal Medicine - H&P: HPI Chief complaint: abd pain Admitted From: Home History of present illness: Ms. Archer is a 52 year old female with PMH Of COPD on LTOT, DM, HTN, HLD, morbid obesity, GERD, hypothyroidism who presented to the ER for evaluation of abd pain. 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 She states wound cultures were obtained and she was started on clindamycin. Her symptoms have persisted despite being on clindamycin which prompted her visit to the ER. She also reports of subjective fevers and states she has recurring under arm abscesses, which appear to be hidradenitis. As I entered pt's room, she was resting comfortably in bed and talking on the phone, did not appear to be in any distress. However she does have significant abdominal wall erythema. She denies any chest pain, n/v, fever, or chills at this time. Past Med Surg Social Fam HX - Past Medical History Medical history: arthritis, CHF, COPD, diabetes, GERD, hypertension, thyroid disease, venous stasis, other Psychiatric history: anxiety - Past Surgical History Surgical History: cholecystectomy, hysterectomy - Social History Smoking Status: Current every day smoker Packs per day: 1 Smokeless Tobacco Status: No Alcohol use: rarely Drug use: none - Family History Brother Living Status: Still Living Hx Family Cardiac Disorders: Yes (DC, HTN, HLD) Sister Living Status: Still Living Hx Family Cardiac Disorders: Yes (DC, HLD, HTN) Hx Family Respiratory Disorders: Yes (COPD) Hx Family Endocrine Disorder: Yes (DM) Hx Family Autoimmune Disorders: Yes (Lupus) Mother Living Status: Cause of : Liver Cancer Hx Family Cancer: Yes (Liver) Hx Family Autoimmune Disorders: Yes (lupus) Father Adopted: No Family Member Ethnicity: Unknown Living Status: Cause of : DC Hx Family Cardiac Disorders: Yes (HTN, HLD, [place], HD) Hx Family Respiratory Disorders: Yes Hx Family Cancer: No Hx Family GI Disorders: No Hx Family Endocrine Disorder: No Hx Family Neuromuscular Disorders: No Hx Family Neurologic Disorders: No Hx Family HEENT Disorders: No Hx Family Autoimmune Disorders: No Internal Medicine - H&P: Meds Albuterol Sulfate [Proair Hfa] 1 - 2 puff IH Q4H PRN 05/13/16 [History] Montelukast [Singulair] 10 mg PO DAILY 05/13/16 [History] Omeprazole [PriLOSEC] 40 mg PO BID 05/13/16 [History] Thyroid,Pork [[place] Thyroid] 90 mg PO DAILY 05/13/16 [History] Ipratropium/Albuterol Neb [Duoneb] 3 ml IH Q6HR PRN 05/14/16 [History] Nitroglycerin [Nitrostat] 0.4 mg SL AD PRN 05/14/16 [History] EPINEPHrine [Epipen] 0.3 mg IM ONCE PRN 12/16/16 [History] Metformin HCl [Glucophage] 1,000 mg PO BID 12/16/16 [History] Oxygen 3 l NS AD PRN 12/16/16 [History] Linagliptin [Tradjenta] 5 mg PO DAILY 12/01/17 [History] Naproxen Sodium [Aleve] 220 mg PO BID PRN 12/01/17 [History] Lisinopril [Zestril] 10 mg PO DAILY 30 Days #30 tablet 12/05/17 [Rx] Clindamycin [Cleocin] 300 mg PO Q8HR #60 capsule 01/01/18 [Rx] hydroCHLOROthiazide [Hydrochlorothiazide] 12.5 mg PO DAILY PRN 01/06/18 [History ] 3 Allergy/AdvReac Type Severity Reaction Status Date / Time Amoxicillin Allergy Difficulty Verified 01/01/18 19:45 Breathing cefdinir [From Omnicef] Allergy Anaphylaxis Verified 01/06/18 02:41 codeine Allergy Anaphylaxis Verified 01/01/18 19:45 [From Tylenol-Codeine #3] levofloxacin [From Levaquin] Allergy Anaphylaxis Verified 01/01/18 19:45 levothyroxine sodium Allergy Anaphylaxis Verified 01/01/18 19:45 Penicillins Allergy Anaphylaxis Verified 01/01/18 19:45 All Systems PM: A 10-system review of systems was performed and is negative for pertinent findings except as documented above in the HPI. - Constitutional Constitutional: as per HPI - Constitutional Vitals: Temp Pulse Resp BP Pulse Ox 97.8 F 80 17 110/70 92 01/06/18 02:33 01/06/18 02:33 01/06/18 02:33 01/06/18 02:33 01/06/18 02:33 General appearance: Present: A&O X 3, morbidly obese, no acute distress - Head Head exam: Present: atraumatic, normocephalic - Eye Eye exam: Present: conjuntiva pink, sclera anicteric - Respiratory Respiratory exam: Present: CTAB. Absent: respiratory distress, wheezes - Cardiovascular Cardiovascular exam: Present: RRR, +S1, +S2. Absent: diastolic murmur, gallop, rubs, systolic murmur - GI/Abdominal GI/Abdominal exam: Present: normal bowel sounds (midline erythema noted with scattered boil, tender to palpation), soft, no peritoneal signs - Extremities Exam Extremities exam: Present: warm, radial pulses palpable and symmetrical. Absent : calf tenderness, pedal edema, tenderness Additional comments: left underarm boil concerning for hidradenitis - Neurological Exam Neurological exam: Present: oriented X3 Internal Med - H&P Results - Labs CBC & Chem 7: 01/05/18 23:15 01/05/18 23:15 - Impressions ITS Impressions Abdomen/Pelvis CT 01/06/18 23:09 IMPRESSION: Cellulitis without evidence for abscess. D/ / Robert Alexander MD / Robert Alexander MD Interpreting Provider: Robert Alexander MD - Assessment and plan (1) Abdominal wall cellulitis Current Visit: Yes Status: Acute Assessment and plan: CT abd/pelvis findings consistent with abd wall cellulitis outpatient wound culture from groin preliminary result positive for Staph Aureus pt states she has recurrent boils/abscesses all over her body Will d/c Clindamycin and start IV vanco f/u final wound cx consider surgery eval for I&D wound care (2) Hypothyroid Current Visit: No Status: Chronic Assessment and plan: continue home meds Qualifiers: Hypothyroidism type: acquired Qualified Code(s): E03.9 - Hypothyroidism, unspecified (3) COPD (chronic obstructive pulmonary disease) Current Visit: No Status: Chronic Assessment and plan: not in acute exacerbation continue O2 supplementation, pt on 3L NC at home bronchodilator support as needed continue home meds Qualifiers: COPD type: unspecified COPD Qualified Code(s): J44.9 - Chronic obstructive pulmonary disease, unspecified (4) Diabetes Current Visit: No Status: Chronic Assessment and plan: hold oral antihyperglycemic agents SS insulin algorithm as needed monitor FS and BG ADA diet Qualifiers: 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 type: type 2 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 superintendent container terminal insulin use: without superintendent container terminal use 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 complication status: with neurologic complications 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 complication detail: with polyneuropathy Qualified Code(s): E11.42 - Type 2 diabetes mellitus with diabetic polyneuropathy (5) HTN (hypertension) Current Visit: No Status: Chronic Assessment and plan: BP within acceptable range continue home medications Qualifiers: Hypertension type: essential hypertension Qualified Code(s): I10 - Essential (primary) hypertension (6) Morbid obesity Current Visit: Yes Status: Chronic (7) DVT prophylaxis Current Visit: Yes Status: Acute Assessment and plan: heparin SQ - Time Spent With Patient Total time spent is greater than 50% in coordination of care (as documented) at patient's floor/unit and/or counseling patient:
[2018-01-06] MEDS ORDERED: 0.9 % Sodium Chloride 1,000 ML IVC SCH (04:00)
[2018-01-06 04:46] LABS: Basophils % 0.3 %; Eosinophils # 0.3 K/mcL (0.0-0.6); Eosinophils % 2.3 %; Hematocrit 38.5 % (35.3-44.9); Hemoglobin 12.6 g/dL (11.5-15.4); Immature Granulocytes % 0.6 % (0-4); Lymphocytes # 2.5 K/mcL (0.6-4.6); Lymphocytes % 20.3 %; Mean Corpuscular HGB Conc 32.7 g/dL (31.6-35.5); Mean Corpuscular Hemoglobin 30.1 pg (28.0-33.3); Mean Corpuscular Volume 91.9 fL (83.0-100.0); Monocytes # 0.9 K/mcL (0.0-1.3); Monocytes % 7.4 %; Neutrophils # 8.6 K/mcL (1.6-8.9); Platelet Count 213 K/mcL (140-400); Red Blood Count 4.19 M/mcL (3.82-4.97); Red Cell Distribution Width 13.7 % (11.5-14.5); Segmented Neutrophils % 69.1 %
[2018-01-06 05:04] LABS: Magnesium 1.8 mg/dL (1.6-2.6); Phosphorous 2.9 mg/dL (2.7-4.5)
[2018-01-06 05:05] LABS: BUN/Creatinine Ratio 19 (6-26); Blood Urea Nitrogen 9 mg/dL (6-20); Calcium 8.8 mg/dL (8.6-10.3); Carbon Dioxide 27 mEq/L (23-29); Chloride 107 mEq/L (98-107); Glucose 164 mg/dL (70-105); Osmolality,Calculated 290 (280-300); Potassium 3.6 mEq/L (3.5-5.1); Sodium 139 mEq/L (136-145); eGFR For African Americans > 60 (> 60); eGFR For Non-African Americans > 60 (> 60)
[2018-01-06] MEDS: *HR* Heparin 5,000 UNIT/ML VIAL SQ SCH ×2 (05:58→17:31)
[2018-01-06] MEDS: Nicotine 21 MG PATCH.TD24 TD SCH (09:22)
[2018-01-06] MEDS: Nystatin POWDER 30 GM BOTTLE TP SCH ×3 (09:30→21:03)
[2018-01-06] MEDS: Insulin LISPRO 300 UNITS/3 ML VIAL SQ SCH ×4 (09:32→21:21)
[2018-01-06] MEDS: Thyroid (Amour) 30 MG TABLET PO SCH (11:19)
--- NOTE | 2018-01-06 16:06 | Internal Med Progress Note ---
Date of Encounter: 01/06/18 Time of Encounter: 11:45 - Assessment and plan (1) Abdominal wall cellulitis Current Visit: Yes Status: Acute Assessment and plan: CT abd/pelvis findings consistent with abd wall cellulitis outpatient wound culture from groin preliminary result positive for MRSA cont empirical abx Vancomycin for now Surgery consulted (2) Hidradenitis suppurativa Current Visit: Yes Status: Acute Assessment and plan: New left axilla abscess may get benefit with I & D / Excision Surgery consulted She does have chronic healed ulcers / abscess in Rt arm and b/l groin (3) Diabetes Current Visit: No Status: Chronic Assessment and plan: Cont ISS will check HbA1C ADA diet Qualifiers: 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 type: type 2 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 insulin use: without longterm use 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 complication status: with neurologic complications 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 complication detail: with polyneuropathy Qualified Code(s): E11.42 - Type 2 diabetes mellitus with diabetic polyneuropathy (4) Hypothyroid Current Visit: No Status: Chronic Assessment and plan: continue home meds Qualifiers: Hypothyroidism type: acquired Qualified Code(s): E03.9 - Hypothyroidism, unspecified (5) COPD (chronic obstructive pulmonary disease) Current Visit: No Status: Chronic Assessment and plan: not in acute exacerbation continue O2 supplementation, pt on 3L NC at home bronchodilator support as needed continue home meds Qualifiers: COPD type: unspecified COPD Qualified Code(s): J44.9 - Chronic obstructive pulmonary disease, unspecified (6) HTN (hypertension) Current Visit: No Status: Chronic Assessment and plan: BP within acceptable range continue home medications Qualifiers: Hypertension type: essential hypertension Qualified Code(s): I10 - Essential (primary) hypertension (7) DVT prophylaxis Current Visit: Yes Status: Acute Assessment and plan: heparin SQ (8) Morbid obesity Current Visit: Yes Status: Chronic (9) Chronic respiratory failure with hypoxia Current Visit: Yes Status: Acute - Time Spent With Patient Total time spent is greater than 50% in coordination of care (as documented) at patient's floor/unit and/or counseling patient: - Subjective Interval history: Ms. Archer is a 52 year old female with PMH Of COPD, DM, HTN, HLD, morbid obesity , GERD, hypothyroidism who presented to the ER for evaluation of abd pain. Pt is noted to have midline abd wall erythema with scattered boils and reports of seeing a junior project coordinator earlier this week. She states wound cultures were obtained and she was started on clindamycin. Her symptoms have persisted despite being on clindamycin which prompted her visit to the ER. She also reports of subjective fevers and states she has recurring under arm abscesses, which appear to be hidradenitis. Pt was admitted here for abdomen wall cellulites and abscess. Pt was started on empirical abx Vancomycin. Pt states her abd wall cellulites seems to be little better now , however she does have more pain in left arm with new abscess. - Constitutional Vitals: Temp Pulse Resp BP Pulse Ox 97.8 F 76 18 111/76 95 01/06/18 10:37 01/06/18 10:37 01/06/18 10:37 01/06/18 10:37 01/06/18 10:37 General appearance: Present: A&O X 3, morbidly obese, no acute distress - Head Head exam: Present: atraumatic, normal inspection - Neck Neck exam general surgery: Present: supple - Respiratory Respiratory exam: Present: CTAB. Absent: accessory muscle use, rales, rhonchi, wheezes - Cardiovascular Cardiovascular exam: Present: RRR, +S1, +S2. Absent: diastolic murmur, gallop, rubs, systolic murmur - GI/Abdominal GI/Abdominal exam: Present: normal bowel sounds, soft, tenderness (mild tenderness). Absent: rebound, rigid Additional comments: erythema noticed over ant abdomen wall small nodules / abscess noticed over ant abd wall. - Extremities Exam Extremities exam: Absent: calf tenderness, pedal edema, tenderness - Back Exam Back exam: Absent: CVA tenderness (L), CVA tenderness (R) - Neurological Exam Neurological exam: Present: alert, oriented X3 - Psychiatric Psychiatric exam: Present: normal affect, normal mood - Skin Additional comments: a small abscess noticed in Left axilla chronic healed abscess noticed in Rt axilla Internal Medicine: Result - Labs CBC & Chem 7: 01/06/18 04:04 01/06/18 04:04 Labs: Short CBC 01/06/18 Range/Units 04:04 WBC 12.4 H (4.3-11.1) K/mcL Hgb 12.6 (11.5-15.4) g/dL Hct 38.5 (35.3-44.9) % Plt Count 213 (140-400) K/mcL Neutrophils # 8.6 (1.6-8.9) K/mcL BMP 01/06/18 04:04 Sodium 139 Potassium 3.6 Chloride 107 Carbon Dioxide 27 BUN 9 Creatinine 0.47 L Glucose 164 H Calcium 8.8 - Impressions Impressions Abdomen/Pelvis CT 01/06/18 23:09 IMPRESSION: Cellulitis without evidence for abscess. D/ / Robert Alexander MD / Robert Alexander MD Interpreting Provider: Robert Alexander MD Consult Discharge Plan - Plan Referrals: John Inman MD [Primary Care Provider] -
[2018-01-07 04:56] LABS: Basophils # 0.1 K/mcL (0.0-0.2); Basophils % 0.4 %; Eosinophils # 0.3 K/mcL (0.0-0.6); Hematocrit 38.9 % (35.3-44.9); Immature Granulocytes % 0.7 % (0-4); Lymphocytes # 2.3 K/mcL (0.6-4.6); Lymphocytes % 20.6 %; Mean Corpuscular HGB Conc 33.4 g/dL (31.6-35.5); Mean Corpuscular Hemoglobin 31.1 pg (28.0-33.3); Mean Corpuscular Volume 93.1 fL (83.0-100.0); Monocytes % 9.1 %; Neutrophils # 7.5 K/mcL (1.6-8.9); Platelet Count 216 K/mcL (140-400); Red Blood Count 4.18 M/mcL (3.82-4.97); Red Cell Distribution Width 13.5 % (11.5-14.5); Segmented Neutrophils % 66.2 %
[2018-01-07 05:07] LABS: BUN/Creatinine Ratio 27 (6-26); Blood Urea Nitrogen 12 mg/dL (6-20); Carbon Dioxide 26 mEq/L (23-29); Chloride 110 mEq/L (98-107); Glucose 145 mg/dL (70-105); Osmolality,Calculated 296 (280-300); Potassium 3.9 mEq/L (3.5-5.1); Sodium 142 mEq/L (136-145); eGFR For African Americans > 60 (> 60); eGFR For Non-African Americans > 60 (> 60)
[2018-01-07] MEDS: *HR* Heparin 5,000 UNIT/ML VIAL SQ SCH ×2 (05:45→16:41)
[2018-01-07] MEDS: Insulin LISPRO 300 UNITS/3 ML VIAL SQ SCH ×4 (08:38→20:24)
--- NOTE | 2018-01-07 08:55 | General Surgery Consult Note ---
"<Chris Garner - Last Filed: 01/07/18 10:11> Date of Encounter: 01/07/18 Time of Encounter: 08:37 Assessment and Plan (1) Abdominal wall cellulitis Current Visit: Yes Status: Acute CT failed to demonstrate abscess cavity. Was incised by dermatology; appendage overlying this site does appear to have some dry purulent drainage & sutures in place. Failed to improve with outpatient PO clindamycin. Does have marker border for daily comparison; patient states overall redness has lightened up, however, some areas of erythema have gone beyond borders. Patient also has hidradenitis suppuritiva at multiple sites including bilateral axillae. Left appears to have come to a head with some drainage. Right is still subcutaneous and nodular. Also what appears to be candidal intertrigo beneath bilateral breasts. Plan discussed with hospitalist: - will remove sutures overlying abdominal incision site - incision and drainage to axillary abscesses with packing - cont nystatin powder for intertrigo - concur with Abx choice for MRSA isolate - will follow (2) Hidradenitis suppurativa Current Visit: Yes Status: Acute History of Present Illness Consult date: 01/06/18 (Called by Dr. Pickard) Reason for consult: other (multiple abscesses) History of present illness: 52-year-old female presented to the ED for multiple painful red areas of skin with nodular areas underlying. Pt states has been going on for a month. No specific sources of inoculation. Does seem to predominate in skin folds with prime exception being anterior abdominal cellulitis. Pt also described occasionally feeling febrile. States she works hard at home and sweats often. Denies having had a problem like this prior to the past month. Does have remote history of IVDU, but states has not used since the late . Denies known history of endocarditis. No fatigue, palpitations, chest pain, lightheadedness/syncope, acute shortness of breath, nausea, vomiting. Seen by dermatology, had groin abscess lanced and sent for culture. Started on PO Clinda in the meantime without improvement prompting presentation to ED on . Micro report in [id number] [employer] dated 01/03/2018 demonstrates vancomycin- sensitive MRSA. Admitted by ED for multiple areas of cellulitis/abscess and OP treatment failure. Started on IV vanco by hospitalist service. Surgical team consulted for possible I&D. CT-abd done in ED failed to demonstrate abscess cavity in mid-anterior abdominal wall cellulitis. Past Med Surg Social Fam HX - Past Medical History Attestation: Yes The following information was validated with the patient. Source: patient, old records reviewed Medical history: arthritis, CHF, COPD, diabetes, GERD, hypertension, venous stasis, other Psychiatric history: anxiety - Past Surgical History Surgical History: cholecystectomy, hysterectomy - Social History Smoking Status: Current every day smoker Packs per day: 1 Smokeless Tobacco Status: No Alcohol use: rarely Drug use: none - Family History Brother Living Status: Still Living Hx Family Cardiac Disorders: Yes ([place], HTN, HLD) Sister Living Status: Still Living Hx Family Cardiac Disorders: Yes ([place], HLD, HTN) Hx Family Respiratory Disorders: Yes (COPD) Hx Family Endocrine Disorder: Yes (DM) Hx Family Autoimmune Disorders: Yes (Lupus) Mother Living Status: Cause of : Liver Cancer Hx Family Cancer: Yes (Liver) Hx Family Autoimmune Disorders: Yes (lupus) Father Adopted: No Family Member Ethnicity: Unknown Living Status: Cause of : [place] Hx Family Cardiac Disorders: Yes (HTN, HLD, [place], HD) Hx Family Respiratory Disorders: Yes Hx Family Cancer: No Hx Family GI Disorders: No Hx Family Endocrine Disorder: No Hx Family Neuromuscular Disorders: No Hx Family Neurologic Disorders: No Hx Family HEENT Disorders: No Hx Family Autoimmune Disorders: No Medications and Allergies Albuterol Sulfate [Proair Hfa] 1 - 2 puff IH Q4H PRN 05/13/16 [History] Montelukast [Singulair] 10 mg PO DAILY 05/13/16 [History] Omeprazole [PriLOSEC] 40 mg PO BID 05/13/16 [History] Thyroid,Pork [[place] Thyroid] 90 mg PO DAILY 05/13/16 [History] Ipratropium/Albuterol Neb [Duoneb] 3 ml IH Q6HR PRN 05/14/16 [History] Nitroglycerin [Nitrostat] 0.4 mg SL AD PRN 05/14/16 [History] EPINEPHrine [Epipen] 0.3 mg IM ONCE PRN 12/16/16 [History] Metformin HCl [Glucophage] 1,000 mg PO BID 12/16/16 [History] Oxygen 3 l NS AD PRN 12/16/16 [History] Linagliptin [Tradjenta] 5 mg PO DAILY 12/01/17 [History] Naproxen Sodium [Aleve] 220 mg PO BID PRN 12/01/17 [History] Lisinopril [Zestril] 10 mg PO DAILY 30 Days #30 tablet 12/05/17 [Rx] Clindamycin [Cleocin] 300 mg PO Q8HR #60 capsule 01/01/18 [Rx] Clotrimazole 1% CRM [Lotrimin 1%] 1 appl TP BID 01/06/18 [History] Cyanocobalamin (Vitamin B-12) [Vitamin B12] 1,000 mg PO DAILY 01/06/18 [History] Fluticasone Propionate Nasal [Flonase] 1 spr NS DAILY 01/06/18 [History] Nystatin POWDER [Nystop] 1 appl TP BID 01/06/18 [History] Tiotropium [place] [Spiriva Respimat] 2 puff IH DAILY 01/06/18 [History] hydroCHLOROthiazide [Hydrochlorothiazide] 12.5 mg PO DAILY PRN 01/06/18 [History ] 3 Allergy/AdvReac Type Severity Reaction Status Date / Time Amoxicillin Allergy Difficulty Verified 01/06/18 09:29 Breathing cefdinir [From Omnicef] Allergy Anaphylaxis Verified 01/06/18 09:29 codeine Allergy Anaphylaxis Verified 01/06/18 09:29 [From Tylenol-Codeine #3] levofloxacin [From Levaquin] Allergy Anaphylaxis Verified 01/06/18 09:29 levothyroxine sodium Allergy Anaphylaxis Verified 01/06/18 09:29 Penicillins Allergy Anaphylaxis Verified 01/06/18 09:29 Review of Systems All systems PM: The remainder of the systems were reviewed and are negative - Constitutional as per [facility] General Surgery Exam Initial Vital Signs Temp Pulse Resp BP Pulse Ox 98.1 F 107 22 152/83 96 01/05/18 22:50 01/05/18 22:50 01/05/18 22:50 01/05/18 22:50 01/05/18 22:50 VITAL SIGNS: Reviewed. See [facility] GENERAL: HEENT: [Normocephalic, PER, EOMi, oropharynx pink/moist, no JVD noted.] CV: b/l rad pulses 2+, RRR, no murmurs or gallops, no JVD RESPIRATORY: CTAB without wheezes, rales, or rhonchi ABD: soft, non-tender, no rebound/guarding/rigidity, no peritoneal signs INCISION: clean, dry, intact without purulence/bleeding/edema/rubor/calor DRAINS: PAUL site without signs of infection; bulb contains EXTREMITY: grossly normal motor function, no pedal edema, peripheral pulses 2+ b /l NEUROLOGIC EXAM: AOx3, obeys commands, no speech deficits. PSYCHIATRIC: normal mood and affect SKIN: no gross lesions, rashes, or skin changes Exam Initial Vital Signs Temp Pulse Resp BP Pulse Ox 98.1 F 107 22 152/83 96 01/05/18 22:50 01/05/18 22:50 01/05/18 22:50 01/05/18 22:50 01/05/18 22:50 Results - Labs 01/07/18 04:13 01/07/18 04:13 Abnormal lab results WBC 11.4 K/mcL (4.3-11.1) H 01/07/18 04:13 Chloride 110 mEq/L (98-107) H 01/07/18 04:13 Creatinine 0.45 mg/dL (0.60-1.20) L 01/07/18 04:13 BUN/Creatinine Ratio 27 (6-26) H 01/07/18 04:13 Glucose 145 mg/dL (70-105) H 01/07/18 04:13 POC Glucose 106 mg/dL (70-99) H 01/06/18 19:42 AST 10 Units/L (13-39) L 01/05/18 23:15 Urine Clarity Cloudy (Clear) A 01/05/18 23:18 Ur Specific [place] 1.006 (1.010-1.025) L 01/05/18 23:18 Ur Leukocyte Esterase Trace (Negative) H 01/05/18 23:18 Urine Microscopic WBC 5-15 per hpf (0-3) H 01/05/18 23:18 Ur Squamous Epith Cells Many per lpf (None-Few) H 01/05/18 23:18 Ur Culture Indicated? NO. (NO) A 01/05/18 23:18 Diabetes panel 01/07/18 Range/Units 04:13 Sodium 142 (136-145) mEq/L Potassium 3.9 (3.5-5.1) mEq/L Chloride 110 H (98-107) mEq/L Carbon Dioxide 26 (23-29) mEq/L BUN 12 (6-20) mg/dL Creatinine 0.45 L (0.60-1.20) mg/dL Glucose 145 H (70-105) mg/dL Calcium 9.0 (8.6-10.3) mg/dL Calcium panel 01/07/18 Range/Units 04:13 Calcium 9.0 (8.6-10.3) mg/dL Pituitary panel 01/07/18 Range/Units 04:13 Sodium 142 (136-145) mEq/L Potassium 3.9 (3.5-5.1) mEq/L Chloride 110 H (98-107) mEq/L Carbon Dioxide 26 (23-29) mEq/L BUN 12 (6-20) mg/dL Creatinine 0.45 L (0.60-1.20) mg/dL Glucose 145 H (70-105) mg/dL Calcium 9.0 (8.6-10.3) mg/dL Adrenal panel 01/07/18 Range/Units 04:13 Sodium 142 (136-145) mEq/L Potassium 3.9 (3.5-5.1) mEq/L Chloride 110 H (98-107) mEq/L Carbon Dioxide 26 (23-29) mEq/L BUN 12 (6-20) mg/dL Creatinine 0.45 L (0.60-1.20) mg/dL Glucose 145 H (70-105) mg/dL Calcium 9.0 (8.6-10.3) mg/dL All other labs normal. Consult Discharge Plan - Plan Referrals: John Inman MD [Primary Care Provider] - <Zaheer Brandon - Last Filed: 01/07/18 15:29> Date of Encounter: 01/07/18 Review of Systems All systems PM: The remainder of the systems were reviewed and are negative General Surgery Exam Initial Vital Signs Temp Pulse Resp BP Pulse Ox 98.1 F 107 22 152/83 96 01/05/18 22:50 01/05/18 22:50 01/05/18 22:50 01/05/18 22:50 01/05/18 22:50 Exam Initial Vital Signs Temp Pulse Resp BP Pulse Ox 98.1 F 107 22 152/83 96 01/05/18 22:50 01/05/18 22:50 01/05/18 22:50 01/05/18 22:50 01/05/18 22:50 Results - Labs 01/07/18 04:13 01/07/18 04:13 Abnormal lab results WBC 11.4 K/mcL (4.3-11.1) H 01/07/18 04:13 Chloride 110 mEq/L (98-107) H 01/07/18 04:13 Creatinine 0.45 mg/dL (0.60-1.20) L 01/07/18 04:13 BUN/Creatinine Ratio 27 (6-26) H 01/07/18 04:13 Glucose 145 mg/dL (70-105) H 01/07/18 04:13 POC Glucose 149 mg/dL (70-99) H 01/07/18 10:49 AST 10 Units/L (13-39) L 01/05/18 23:15 Urine Clarity Cloudy (Clear) A 01/05/18 23:18 Ur Specific [place] 1.006 (1.010-1.025) L 01/05/18 23:18 Ur Leukocyte Esterase Trace (Negative) H 01/05/18 23:18 Urine Microscopic WBC 5-15 per hpf (0-3) H 01/05/18 23:18 Ur Squamous Epith Cells Many per lpf (None-Few) H 01/05/18 23:18 Ur Culture Indicated? NO. (NO) A 01/05/18 23:18 Diabetes panel 01/07/18 Range/Units 04:13 Sodium 142 (136-145) mEq/L Potassium 3.9 (3.5-5.1) mEq/L Chloride 110 H (98-107) mEq/L Carbon Dioxide 26 (23-29) mEq/L BUN 12 (6-20) mg/dL Creatinine 0.45 L (0.60-1.20) mg/dL Glucose 145 H (70-105) mg/dL Calcium 9.0 (8.6-10.3) mg/dL Calcium panel 01/07/18 Range/Units 04:13 Calcium 9.0 (8.6-10.3) mg/dL Pituitary panel 01/07/18 Range/Units 04:13 Sodium 142 (136-145) mEq/L Potassium 3.9 (3.5-5.1) mEq/L Chloride 110 H (98-107) mEq/L Carbon Dioxide 26 (23-29) mEq/L BUN 12 (6-20) mg/dL Creatinine 0.45 L (0.60-1.20) mg/dL Glucose 145 H (70-105) mg/dL Calcium 9.0 (8.6-10.3) mg/dL Adrenal panel 01/07/18 Range/Units 04:13 Sodium 142 (136-145) mEq/L Potassium 3.9 (3.5-5.1) mEq/L Chloride 110 H (98-107) mEq/L Carbon Dioxide 26 (23-29) mEq/L BUN 12 (6-20) mg/dL Creatinine 0.45 L (0.60-1.20) mg/dL Glucose 145 H (70-105) mg/dL Calcium 9.0 (8.6-10.3) mg/dL All other labs normal. - Attending Attestation I have personally performed a face to face evaluation on this patient. I have reviewed and agree with the care plan. History and Exam by me shows: The patient is seen and evaluated. She appears to have complex hidradenitis suprativa. Would prefer conservative management. Zaheer Brandon MD FACS"
[2018-01-07] MEDS: Nicotine 21 MG PATCH.TD24 TD SCH (09:18)
[2018-01-07] MEDS: Nystatin POWDER 30 GM BOTTLE TP SCH ×4 (09:19→20:24)
[2018-01-07] MEDS: Thyroid (Amour) 30 MG TABLET PO SCH (09:19)
[2018-01-07] MEDS ORDERED: Lidocaine 1% 20 ML MDV INFILT ONE (10:28)
--- NOTE | 2018-01-07 16:42 | Internal Med Progress Note ---
Date of Encounter: 01/07/18 Time of Encounter: 12:30 - Assessment and plan (1) Abdominal wall cellulitis Current Visit: Yes Status: Acute Assessment and plan: CT abd/pelvis findings consistent with abd wall cellulites outpatient wound culture from groin preliminary result positive for MRSA cont empirical abx Vancomycin for now Surgery consulted Removed the stitches and cont local wound care (2) Hidradenitis suppurativa Current Visit: Yes Status: Acute Assessment and plan: New left axilla abscess Surgery consulted She does have chronic healed ulcers / abscess in Rt arm and b/l groin (3) Diabetes Current Visit: No Status: Chronic Assessment and plan: Cont ISS will check HbA1C ADA diet Qualifiers: 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 type: type 2 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 longterm insulin use: without truck terminal manager use 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 complication status: with neurologic complications 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 complication detail: with polyneuropathy Qualified Code(s): E11.42 - Type 2 diabetes mellitus with diabetic polyneuropathy (4) Hypothyroid Current Visit: No Status: Chronic Assessment and plan: continue home meds Qualifiers: Hypothyroidism type: acquired Qualified Code(s): E03.9 - Hypothyroidism, unspecified (5) COPD (chronic obstructive pulmonary disease) Current Visit: No Status: Chronic Assessment and plan: not in acute exacerbation continue O2 supplementation, pt on 3L NC at home bronchodilator support as needed continue home meds Qualifiers: COPD type: unspecified COPD Qualified Code(s): J44.9 - Chronic obstructive pulmonary disease, unspecified (6) HTN (hypertension) Current Visit: No Status: Chronic Assessment and plan: BP within acceptable range continue home medications Qualifiers: Hypertension type: essential hypertension Qualified Code(s): I10 - Essential (primary) hypertension (7) DVT prophylaxis Current Visit: Yes Status: Acute Assessment and plan: heparin SQ (8) Morbid obesity Current Visit: Yes Status: Chronic Assessment and plan: counseled about diet modifications and physical activity - Time Spent With Patient Total time spent is greater than 50% in coordination of care (as documented) at patient's floor/unit and/or counseling patient: - Subjective Interval history: Ms. Archer is a 52 year old female with PMH Of COPD, DM, HTN, HLD, morbid obesity , GERD, hypothyroidism who presented to the ER for evaluation of abd pain. Pt is noted to have midline abd wall erythema with scattered boils and reports of seeing a paradi operator earlier this week. She states wound cultures were obtained and she was started on clindamycin. Her symptoms have persisted despite being on clindamycin which prompted her visit to the ER. She also reports of subjective fevers and states she has recurring under arm abscesses, which appear to be hidradenitis. Pt was admitted here for abdomen wall cellulites and abscess. Pt was started on empirical abx Vancomycin. Pt states her abd wall cellulites seems to be little better now , pt still c/o more pain in left arm with new abscess. - Constitutional Vitals: Temp Pulse Resp BP Pulse Ox 98.3 F 79 18 121/80 95 01/07/18 15:50 01/07/18 15:50 01/07/18 15:50 01/07/18 15:50 01/07/18 15:50 General appearance: Present: A&O X 3, morbidly obese, no acute distress - Head Head exam: Present: atraumatic, normal inspection - Neck Neck exam general surgery: Present: supple - Respiratory Respiratory exam: Present: CTAB. Absent: accessory muscle use, rales, rhonchi, wheezes - Cardiovascular Cardiovascular exam: Present: RRR, +S1, +S2. Absent: diastolic murmur, gallop, rubs, systolic murmur - GI/Abdominal GI/Abdominal exam: Present: distended, normal bowel sounds, soft, tenderness ( mild discomfort). Absent: rebound, rigid Additional comments: Improving erythema noticed over ant abdomen wall small nodules / abscess noticed over ant abd wall small incision with stitches noticed from recent I & D of abscess - Back Exam Back exam: Absent: CVA tenderness (L), CVA tenderness (R) - Neurological Exam Neurological exam: Present: alert, oriented X3 - Psychiatric Psychiatric exam: Present: normal affect, normal mood - Skin Additional comments: a small abscess noticed in Left axilla chronic healed abscess noticed in Rt axilla Internal Medicine: Result - Labs CBC & Chem 7: 01/07/18 04:13 01/07/18 04:13 Labs: Short CBC 01/07/18 Range/Units 04:13 WBC 11.4 H (4.3-11.1) K/mcL Hgb 13.0 (11.5-15.4) g/dL Hct 38.9 (35.3-44.9) % Plt Count 216 (140-400) K/mcL Neutrophils # 7.5 (1.6-8.9) K/mcL BMP 01/07/18 04:13 Sodium 142 Potassium 3.9 Chloride 110 H Carbon Dioxide 26 BUN 12 Creatinine 0.45 L Glucose 145 H Calcium 9.0 Consult Discharge Plan - Plan Referrals: John Inman MD [Primary Care Provider] -
[2018-01-07] MEDS: Acetaminophen 325 MG TABLET PO PRN (16:50)
--- NOTE | 2018-01-07 17:02 | General Surgery Procedure Note ---
Date of procedure: 01/07/18 Pre-op diagnosis: Infected hidradenitis suppurativa bilateral axilla Post-op diagnosis: same Procedure: After informed consent was obtained and timeout completed, the patient's left axilla was prepped and draped. The area was localized with 15 ML's of 1% lidocaine. After achieving appropriate localization, a 2cm incision was made over the most fluctuaant area using a size 11 blade. Incision and drainage was carried out through skin and subcutaneous tissue. There was immediate return of a scant amount of purulent drainage. The cavity was further opened and decompressed using hemostats. The cavity was flushed using 20 MLs of saline and then packed with 1/4 inch plain gauze and covered with a dry dressing. The procedure was performed at the bedside. After informed consent was obtained and timeout completed, the patient's right axilla was prepped and draped. The area was localized with 15 ML's of 1% lidocaine. After achieving appropriate localization, a 2cm incision was made over the most fluctuaant area using a size 11 blade. Incision and drainage was carried out through skin and subcutaneous tissue. There was immediate return of a scant amount of purulent drainage. The cavity was further opened and decompressed using hemostats. The cavity was flushed using 20 MLs of saline and then packed with 1/4 inch plain gauze and covered with a dry dressing. The procedure was performed at the bedside. Complications: None immediate Anesthesia: local Surgeon: Siri Hart Estimated blood loss (cc): 0 Pathology: none sent Condition: stable Disposition: no change
[2018-01-08 03:28] LABS: Basophils # 0.1 K/mcL (0.0-0.2); Basophils % 0.6 %; Eosinophils # 0.3 K/mcL (0.0-0.6); Hematocrit 36.9 % (35.3-44.9); Hemoglobin 12.4 g/dL (11.5-15.4); Immature Granulocytes % 0.9 % (0-4); Lymphocytes # 1.8 K/mcL (0.6-4.6); Lymphocytes % 16.8 %; Mean Corpuscular HGB Conc 33.6 g/dL (31.6-35.5); Mean Corpuscular Hemoglobin 31.3 pg (28.0-33.3); Mean Corpuscular Volume 93.2 fL (83.0-100.0); Mean Platelet Volume 10.6 fL (9.4-12.4); Monocytes # 0.9 K/mcL (0.0-1.3); Monocytes % 8.7 %; Neutrophils # 7.4 K/mcL (1.6-8.9); Platelet Count 214 K/mcL (140-400); Red Blood Count 3.96 M/mcL (3.82-4.97); Red Cell Distribution Width 13.2 % (11.5-14.5)
[2018-01-08 03:49] LABS: BUN/Creatinine Ratio 24 (6-26); Blood Urea Nitrogen 12 mg/dL (6-20); Calcium 9.2 mg/dL (8.6-10.3); Carbon Dioxide 24 mEq/L (23-29); Chloride 107 mEq/L (98-107); Glucose 133 mg/dL (70-105); Osmolality,Calculated 290 (280-300); Sodium 139 mEq/L (136-145); eGFR For African Americans > 60 (> 60); eGFR For Non-African Americans > 60 (> 60)
[2018-01-08] MEDS: Acetaminophen 325 MG TABLET PO PRN ×2 (04:25→15:33)
[2018-01-08] MEDS: *HR* Heparin 5,000 UNIT/ML VIAL SQ SCH ×2 (06:25→16:46)
[2018-01-08] MEDS: Nicotine 21 MG PATCH.TD24 TD SCH (08:41)
[2018-01-08] MEDS: Thyroid (Amour) 30 MG TABLET PO SCH (08:41)
[2018-01-08] MEDS: Insulin LISPRO 300 UNITS/3 ML VIAL SQ SCH ×4 (08:43→21:55)
[2018-01-08] MEDS: Nystatin POWDER 30 GM BOTTLE TP SCH ×4 (08:44→21:56)
--- NOTE | 2018-01-08 09:52 | General Surgery Progress Note ---
<Jose Barcenas - Last Filed: 01/08/18 14:39> Date of Encounter: 01/08/18 Time of Encounter: 06:30 - Assessment and Plan (1) Abdominal wall cellulitis Current Visit: Yes Status: Acute CT failed to demonstrate abscess cavity. Was incised by dermatology; appendage overlying this site does appear to have some dry purulent drainage & sutures in place. Failed to improve with outpatient PO clindamycin. Microbiology report dated 01/03/18 demonstrates vancomycin sensitive MRSA. Surtures overlying abdominal incision from previous punch biopsy were removed yesterday. The wound seems to be draining today with purulent fluid upon deep palpation. Mild pain with palpation. White blood cell count normal at 10.6. No overnight fever. Patient on day 3 of vancomycin. - Continue vancomycin. - Continue to trend WBC. - Montitor vitals. - Will continue to follow. (2) Hidradenitis suppurativa Current Visit: Yes Status: Acute Patient had I&D performed yesterday of both axilla. Both axillary incisional lesions appear to be draining with purulent fluid. - Continue nystatin. (3) Intertrigo Current Visit: Yes Status: Acute Continue nystatin. Subjective Narrative: Patient says she continues to feel soreness in her wounds in both her armpits as well as the mid abdominal region. She denies any overnight fever or chills. Denies any nausea or vomiting. Objective VITAL SIGNS: Reviewed. See [facility] GENERAL: no apparent distress. HEENT: [Normocephalic, PER, EOMi, oropharynx pink/moist, no JVD noted.] CV: b/l rad pulses 2+, RRR, no murmurs or gallops, no JVD RESPIRATORY: CTAB without wheezes, rales, or rhonchi ABD: soft, mild tenderness with deep palpation of mid-epigastric region overlying region of wound, no rebound/guarding/rigidity, no peritoneal signs. Normal bowel sounds present. INCISION: 2x1cm incision of axilla b/l shows mild drainage of purulent fluid upon palpation. EXTREMITY: grossly normal motor function, no pedal edema, peripheral pulses 2+ b /l NEUROLOGIC EXAM: AOx3, obeys commands, no speech deficits. PSYCHIATRIC: normal mood and affect SKIN: 2x1 cm lesion in mid-epigastric region shows moderate purulent drainage upon palpation. There is also a 6 x 6 centimeter area of erythema surrounding the lesion. Vital Signs - Last 8 Hours Temp Pulse Resp BP Pulse Ox 01/08/18 08:15 97.8 F 72 14 127/67 96 Intake and Output 01/07/18 01/08/18 01/08/18 23:59 07:59 15:59 Intake Total 720 / 720 750 / 750 480 / 480 Balance 720 / 720 750 / 750 480 / 480 Intake: IV Fluids 250 / 250 Vancocin 1,500 MG In 0.9 % 250 / 250 Sodium Chloride 250 ML @ 166.67 mls/hr IVPB Q12H [facility] Rx#: [id number] Oral 720 / 720 500 / 500 480 / 480 Other: Meal Dinner Breakfast Percent of Meal Consumed 75% 100% Blood Glucose* 168 86 - Labs 01/08/18 02:45 01/08/18 02:45 Diabetes panel 01/08/18 Range/Units 02:45 Sodium 139 (136-145) mEq/L Potassium 4.0 (3.5-5.1) mEq/L Chloride 107 (98-107) mEq/L Carbon Dioxide 24 (23-29) mEq/L BUN 12 (6-20) mg/dL Creatinine 0.51 L (0.60-1.20) mg/dL Glucose 133 H (70-105) mg/dL Calcium 9.2 (8.6-10.3) mg/dL Calcium panel 01/08/18 Range/Units 02:45 Calcium 9.2 (8.6-10.3) mg/dL Pituitary panel 01/08/18 Range/Units 02:45 Sodium 139 (136-145) mEq/L Potassium 4.0 (3.5-5.1) mEq/L Chloride 107 (98-107) mEq/L Carbon Dioxide 24 (23-29) mEq/L BUN 12 (6-20) mg/dL Creatinine 0.51 L (0.60-1.20) mg/dL Glucose 133 H (70-105) mg/dL Calcium 9.2 (8.6-10.3) mg/dL Adrenal panel 01/08/18 Range/Units 02:45 Sodium 139 (136-145) mEq/L Potassium 4.0 (3.5-5.1) mEq/L Chloride 107 (98-107) mEq/L Carbon Dioxide 24 (23-29) mEq/L BUN 12 (6-20) mg/dL Creatinine 0.51 L (0.60-1.20) mg/dL Glucose 133 H (70-105) mg/dL Calcium 9.2 (8.6-10.3) mg/dL Consult Discharge Plan - Plan Referrals: John Inman MD [Primary Care Provider] - <Norma Delatorre - Last Filed: 01/08/18 15:04> Date of Encounter: 01/08/18 - Assessment and Plan (1) Abdominal wall cellulitis Current Visit: Yes Status: Acute no obvious abscess cavity continue antibiotics continue dressing on site where drainage is present (2) Hidradenitis suppurativa Current Visit: Yes Status: Acute I/D sites improved per patient continue abx, to followup with dermatology continue daily dry dressing changes to both axilla while draining Subjective Patient reports: no new complaints, feels better, still having pain, pain is less Narrative: states bilateral axilla still painful but less so today she complains of being able to squeeze at her abdominal cellulitis site and get pus to result, is less erythematous today Objective Vital Signs - Last 8 Hours Temp Pulse Resp BP Pulse Ox 01/08/18 08:15 97.8 F 72 14 127/67 96 Intake and Output 01/07/18 01/08/18 01/08/18 23:59 07:59 15:59 Intake Total 720 / 720 750 / 750 480 / 480 Balance 720 / 720 750 / 750 480 / 480 Intake: IV Fluids 250 / 250 Vancocin 1,500 MG In 0.9 % 250 / 250 Sodium Chloride 250 ML @ 166.67 mls/hr IVPB Q12H [facility] Rx#: [id number] Oral 720 / 720 500 / 500 480 / 480 Other: Meal Dinner Lunch Percent of Meal Consumed 75% 50% Blood Glucose* 168 126 - General physical appearance well developed, well nourished, no distress, obese - Eyes PERRL, normal ocular movement - ENT normal mucosa, normocephalic - Neck Neck exam: trachea midline - Respiratory normal expansion, normal respiratory effort - Abdomen Abdomen: Present: soft, tender (at upper mid abdomen at site of cellulitis, area is draining pus, investigated with sterile qtip and no abscess cavity located) - Incision Incision: Present: open (bilateral axilla I/D sites - right no erythema and scant purulent drainage, left slight erythema and drainage) - Neurologic CN 2-12 grossly intact - Musculoskeletal normal posture - Psychiatric oriented to time, oriented to person, memory intact - Labs 01/08/18 02:45 01/08/18 02:45 Diabetes panel 01/08/18 Range/Units 02:45 Sodium 139 (136-145) mEq/L Potassium 4.0 (3.5-5.1) mEq/L Chloride 107 (98-107) mEq/L Carbon Dioxide 24 (23-29) mEq/L BUN 12 (6-20) mg/dL Creatinine 0.51 L (0.60-1.20) mg/dL Glucose 133 H (70-105) mg/dL Calcium 9.2 (8.6-10.3) mg/dL Calcium panel 01/08/18 Range/Units 02:45 Calcium 9.2 (8.6-10.3) mg/dL Pituitary panel 01/08/18 Range/Units 02:45 Sodium 139 (136-145) mEq/L Potassium 4.0 (3.5-5.1) mEq/L Chloride 107 (98-107) mEq/L Carbon Dioxide 24 (23-29) mEq/L BUN 12 (6-20) mg/dL Creatinine 0.51 L (0.60-1.20) mg/dL Glucose 133 H (70-105) mg/dL Calcium 9.2 (8.6-10.3) mg/dL Adrenal panel 01/08/18 Range/Units 02:45 Sodium 139 (136-145) mEq/L Potassium 4.0 (3.5-5.1) mEq/L Chloride 107 (98-107) mEq/L Carbon Dioxide 24 (23-29) mEq/L BUN 12 (6-20) mg/dL Creatinine 0.51 L (0.60-1.20) mg/dL Glucose 133 H (70-105) mg/dL Calcium 9.2 (8.6-10.3) mg/dL - Attending Attestation I examined this patient and my medical decision-making was reviewed with the Resident Physician. I agree with the documented findings, disposition and treatment plan as described except to the extent set forth below.
--- NOTE | 2018-01-08 13:52 | Internal Med Progress Note ---
Date of Encounter: 01/08/18 Time of Encounter: 13:49 - Assessment and plan (1) Abdominal wall cellulitis Current Visit: Yes Status: Acute Assessment and plan: CT abd/pelvis findings consistent with abd wall cellulites outpatient wound culture from groin preliminary result positive for MRSA cont empirical abx Vancomycin for now Removed the stitches by surger y/d Squeezed some more pus out of it today since she still has more purulent discharge through it will cont IV abx another day (2) Hidradenitis suppurativa Current Visit: Yes Status: Acute Assessment and plan: New left axilla abscess She does have chronic healed ulcers / abscess in Rt arm and b/l groin s/p I & D of Left and Rt axilla abscess (3) Diabetes Current Visit: No Status: Chronic Assessment and plan: Cont ISS HbA1C - P ADA diet Qualifiers: 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 type: type 2 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 oil 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 use: without oil heaterman use 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 complication status: with neurologic complications 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 complication detail: with polyneuropathy Qualified Code(s): E11.42 - Type 2 diabetes mellitus with diabetic polyneuropathy (4) Hypothyroid Current Visit: No Status: Chronic Assessment and plan: continue home meds Qualifiers: Hypothyroidism type: acquired Qualified Code(s): E03.9 - Hypothyroidism, unspecified (5) COPD (chronic obstructive pulmonary disease) Current Visit: No Status: Chronic Assessment and plan: not in acute exacerbation continue O2 supplementation, pt on 3L NC at home bronchodilator support as needed continue home meds Qualifiers: COPD type: unspecified COPD Qualified Code(s): J44.9 - Chronic obstructive pulmonary disease, unspecified (6) HTN (hypertension) Current Visit: No Status: Chronic Assessment and plan: BP within acceptable range continue home medications Qualifiers: Hypertension type: essential hypertension Qualified Code(s): I10 - Essential (primary) hypertension (7) DVT prophylaxis Current Visit: Yes Status: Acute Assessment and plan: heparin SQ (8) Morbid obesity Current Visit: Yes Status: Chronic Assessment and plan: counseled about diet modifications and physical activity - Time Spent With Patient Total time spent is greater than 50% in coordination of care (as documented) at patient's floor/unit and/or counseling patient: - Subjective Interval history: Ms. Archer is a 52 year old female with PMH Of COPD, DM, HTN, HLD, morbid obesity , GERD, hypothyroidism who presented to the ER for evaluation of abd pain. Pt is noted to have midline abd wall erythema with scattered boils and reports of seeing a geriatric nurse practitioner earlier this week. She states wound cultures were obtained and she was started on clindamycin. Her symptoms have persisted despite being on clindamycin which prompted her visit to the ER. She also reports of subjective fevers and states she has recurring under arm abscesses, which appear to be hidradenitis. Pt was admitted here for abdomen wall cellulites and abscess. Pt was started on empirical abx Vancomycin. Pt states her abd wall cellulites seems to be little better now. Over all feels better and wants to go home. - Constitutional Vitals: Temp Pulse Resp BP Pulse Ox 97.8 F 72 14 127/67 96 01/08/18 08:15 01/08/18 08:15 01/08/18 08:15 01/08/18 08:15 01/08/18 08:15 General appearance: Present: A&O X 3, morbidly obese, no acute distress - Head Head exam: Present: atraumatic, normal inspection - Neck Neck exam general surgery: Present: supple - Respiratory Respiratory exam: Present: CTAB. Absent: accessory muscle use, rales, rhonchi, wheezes - Cardiovascular Cardiovascular exam: Present: RRR, +S1, +S2. Absent: diastolic murmur, gallop, rubs, systolic murmur - GI/Abdominal GI/Abdominal exam: Present: normal bowel sounds, soft. Absent: rebound, rigid, tenderness Additional comments: purulent drainage noticed through abdomen wall abscess - Extremities Exam Extremities exam: Absent: calf tenderness, pedal edema, tenderness - Back Exam Back exam: Absent: CVA tenderness (L), CVA tenderness (R) - Skin Additional comments: no drainage noticed over Rt axilla incision mild purulent drainage noticed over Left axilla abscess Internal Medicine: Result - Labs CBC & Chem 7: 01/08/18 02:45 01/08/18 02:45 Labs: Short CBC 01/08/18 Range/Units 02:45 WBC 10.6 (4.3-11.1) K/mcL Hgb 12.4 (11.5-15.4) g/dL Hct 36.9 (35.3-44.9) % Plt Count 214 (140-400) K/mcL Neutrophils # 7.4 (1.6-8.9) K/mcL [facility] 01/08/18 02:45 Sodium 139 Potassium 4.0 Chloride 107 Carbon Dioxide 24 BUN 12 Creatinine 0.51 L Glucose 133 H Calcium 9.2 Consult Discharge Plan - Plan Referrals: John Inman MD [Primary Care Provider] -
[2018-01-09] MEDS: *HR* Heparin 5,000 UNIT/ML VIAL SQ SCH (05:26)
[2018-01-09 05:41] VITALS: BP 156/80
[2018-01-09] MEDS: Insulin LISPRO 300 UNITS/3 ML VIAL SQ SCH (07:55)
[2018-01-09] MEDS: Thyroid (Amour) 30 MG TABLET PO SCH (07:57)
[2018-01-09] MEDS: Nicotine 21 MG PATCH.TD24 TD SCH (07:57)
[2018-01-09] MEDS: Nystatin POWDER 30 GM BOTTLE TP SCH (08:00)
--- NOTE | 2018-01-09 10:02 | General Surgery Progress Note ---
<Jose Barcenas - Last Filed: 01/09/18 16:11> Date of Encounter: 01/09/18 Time of Encounter: 07:10 - Assessment and Plan (1) Abdominal wall cellulitis Status: Acute CT failed to demonstrate abscess cavity. Was incised by dermatology; appendage overlying this site does appear to have some dry purulent drainage & sutures in place. Failed to improve with outpatient PO clindamycin. Microbiology report dated 01/03/18 demonstrates vancomycin sensitive MRSA. Surtures overlying abdominal incision from previous punch biopsy were removed. There are some signs of drainage with palpation although less from yesterday. Mild pain with palpation. Patient on day 4 of vancomycin. - Patient's abdominal wound has been improving. Surgery will sign off on this patient. (2) Hidradenitis suppurativa Status: Acute Patient had I&D performed yesterday of both axilla. Right axilla seems considerably improved. Left axilla does show some signs of purulent drainage. - R axilla has considerably improved. L axilla has continues to improve with drainage but is more tender than the R. (3) Intertrigo Status: Acute Improved considerably since admission. Located under breast skinfolds b/l. Continue nystatin. Subjective Narrative: Patient says that the pain in her right axilla has considerably improved since yesterday but she still continues to feel pain in her left axilla and the wound over her mid epigastric region. She denies any fever or chills. Denies any nausea or vomiting. Denies any chest pain or shortness of breath. Objective VITAL SIGNS: Reviewed. See [facility] GENERAL: No apparent distress. HEENT: [Normocephalic, PER, EOMi, oropharynx pink/moist, no JVD noted.] CV: b/l rad pulses 2+, RRR, no murmurs or gallops, no JVD RESPIRATORY: CTAB without wheezes, rales, or rhonchi ABD: soft, non-tender, no rebound/guarding/rigidity, no peritoneal signs. Normal bowel sounds present. INCISION: Lesion over left armpit shows drainage with pus. Left axilla shows decreased erythema. No drainage from right axilla with decreased erythema. No signs of active bleeding bilaterally. Minor tenderness to palpation of left axilla. EXTREMITY: grossly normal motor function, no pedal edema, peripheral pulses 2+ b /l NEUROLOGIC EXAM: AOx3, obeys commands, no speech deficits. PSYCHIATRIC: normal mood and affect SKIN: Wound over epigastric region shows some purulent drainage although less from yesterday. Vital Signs - Last 8 Hours Temp Pulse Resp BP Pulse Ox 01/09/18 05:40 97.4 F L 78 18 156/80 91 Intake and Output 01/08/18 01/09/18 01/09/18 23:59 07:59 15:59 Other: Meal candy bar # Voids 1 Weight 119.408 kg Blood Glucose* 179 123 Patient Weight 01/09/18 23:59 Weight 119.408 kg - Labs 01/08/18 02:45 01/08/18 02:45 Consult Discharge Plan - Plan Instructions: Cellulitis (GEN), Cigarette Smoking and Your Health, Manager Recruitment (GEN), How to Stop Smoking, Manager Recruitment (GEN) Referrals: Zaheer Brandon MD [Partnered Physician] - John Inman MD [Primary Care Provider] - Prescriptions: Lactobacillus [Culturelle] 1 each PO BID #30 cap.sprink Nicotine Patch [Nicoderm] 21 mg TD DAILY #30 patch.td24 Nystatin POWDER [Nystop] 1 appl TP TID #2 bottle Sulfamethoxazole/Trimeth DS [Bactrim DS] 1 each PO BID #20 tablet <Norma Delatorre - Last Filed: 01/09/18 16:40> Date of Encounter: 01/09/18 - Assessment and Plan (1) Abdominal wall cellulitis Status: Acute continue antibiotics counseled patient if induration area enlarges, pain worsens or does erythema call Dr Brandon office or PCP to be seen continue antibiotics as outpatient wash area with soap and water daily, cover with dry clean dressing, change daily (2) Hidradenitis suppurativa Status: Acute bilateral axilla improving continue antibiotics wash with soap and water daily, cover with dry dressing as long as having drainage, change daily Subjective Patient reports: no new complaints, feels better, still having pain, pain is less Objective Intake and Output 01/09/18 01/09/18 01/09/18 07:59 15:59 23:59 Other: # Voids 1 Weight 119.408 kg Blood Glucose* 123 96 Patient Weight 01/09/18 23:59 Weight 119.408 kg - General physical appearance well developed, well nourished, obese - Eyes PERRL, normal ocular movement - ENT normal mucosa, normocephalic - Neck Neck exam: trachea midline - Respiratory normal expansion, normal respiratory effort - Cardiovascular Cardiovascular exam: Present: RRR - Abdomen Abdomen: Present: soft, tender (at cellulitis site of mid abdomen) - Integumentary no rash - Neurologic CN 2-12 grossly intact - Musculoskeletal normal posture - Psychiatric oriented to time, oriented to person, oriented to place, speech is normal, memory intact - Labs 01/08/18 02:45 01/08/18 02:45 Diabetes panel 01/08/18 Range/Units 02:45 Hemoglobin A1c 7.0 H ( - 5.6) % - Attending Attestation I examined this patient and my medical decision-making was reviewed with the Resident Physician. I agree with the documented findings, disposition and treatment plan as described except to the extent set forth below.
--- NOTE | 2018-01-09 11:14 | Discharge Summary ---
- NOTES TO OUTPATIENT PROVIDER Notes to Outpatient Provider: f/u with PCP in one week. f/u with surgery Dr. 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 intermediate use 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 complication status: with neurologic complications 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 complication detail: with polyneuropathy Qualified Code(s): E11.42 - Type 2 diabetes mellitus with diabetic polyneuropathy (4) Hypothyroid Priority: Secondary Status: Chronic Qualifiers: Hypothyroidism type: acquired Qualified Code(s): E03.9 - Hypothyroidism, unspecified (5) COPD (chronic obstructive pulmonary disease) Priority: Secondary Status: Chronic Qualifiers: COPD type: unspecified COPD Qualified Code(s): J44.9 - Chronic obstructive pulmonary disease, unspecified (6) HTN (hypertension) Priority: Secondary Status: Chronic Qualifiers: Hypertension type: essential hypertension Qualified Code(s): I10 - Essential (primary) hypertension (7) DVT prophylaxis Priority: Secondary Status: Acute (8) Morbid obesity Priority: Secondary Status: Chronic Hospital course: Ms. Archer is a 52 year old female with PMH Of COPD, DM, HTN, HLD, morbid obesity , GERD, hypothyroidism who presented to the ER for evaluation of abd pain. Pt is noted to have midline abd wall erythema with scattered boils and reports of seeing a country printer earlier this week. She states wound cultures were obtained and she was started on clindamycin. Her symptoms have persisted despite being on Clindamycin which prompted her visit to the ER. She also reports of subjective fevers and states she has recurring under arm abscesses, which appear to be hidradenitis. Pt was admitted here for abdomen wall cellulites and abscess. Pt was started on empirical abx Vancomycin. Outpatient wound culture from groin preliminary result positive for MRSA. Removed the stitches by surgery. It did drain some pus earlier. She also had abscess in both Rt and Left axilla which were I &D 'd by surgery. Pt remained afebrile and her WBC are WNL. Will d/c her home in stable condition. COunseled the pt about hygiene and keeping the wounds clean and dry. - Time Spent with Patient Total time spent providing and/or coordinating discharge services: - Discharge Medications Prescriptions: Lactobacillus [Culturelle] 1 each PO BID #30 cap.sprink Nicotine Patch [Nicoderm] 21 mg TD DAILY #30 patch.td24 Nystatin POWDER [Nystop] 1 appl TP TID #2 bottle Sulfamethoxazole/Trimeth DS [Bactrim DS] 1 each PO BID #20 tablet Home Medications: Albuterol Sulfate [Proair Hfa] 1 - 2 puff IH Q4H PRN 05/13/16 [History] Montelukast [Singulair] 10 mg PO DAILY 05/13/16 [History] Omeprazole [PriLOSEC] 40 mg PO BID 05/13/16 [History] Thyroid,Pork [[place] Thyroid] 90 mg PO DAILY 05/13/16 [History] Ipratropium/Albuterol Neb [Duoneb] 3 ml IH Q6HR PRN 05/14/16 [History] Nitroglycerin [Nitrostat] 0.4 mg SL AD PRN 05/14/16 [History] EPINEPHrine [Epipen] 0.3 mg IM ONCE PRN 12/16/16 [History] Metformin HCl [Glucophage] 1,000 mg PO BID 12/16/16 [History] Oxygen 3 l NS AD PRN 12/16/16 [History] Linagliptin [Tradjenta] 5 mg PO DAILY 12/01/17 [History] Naproxen Sodium [Aleve] 220 mg PO BID PRN 12/01/17 [History] Lisinopril [Zestril] 10 mg PO DAILY 30 Days #30 tablet 12/05/17 [Rx] Clotrimazole 1% CRM [Lotrimin 1%] 1 appl TP BID 01/06/18 [History] Cyanocobalamin (Vitamin B-12) [Vitamin B12] 1,000 mg PO DAILY 01/06/18 [History] Fluticasone Propionate Nasal [Flonase] 1 spr NS DAILY 01/06/18 [History] Tiotropium [place] [Spiriva Respimat] 2 puff IH DAILY 01/06/18 [History] hydroCHLOROthiazide [Hydrochlorothiazide] 12.5 mg PO DAILY PRN 01/06/18 [History ] Lactobacillus [Culturelle] 1 each PO BID #30 cap.sprink 01/09/18 [Rx] Nicotine Patch [Nicoderm] 21 mg TD DAILY #30 patch.td24 01/09/18 [Rx] Nystatin POWDER [Nystop] 1 appl TP TID #2 bottle 01/09/18 [Rx] Sulfamethoxazole/Trimeth DS [Bactrim DS] 1 each PO BID #20 tablet 01/09/18 [Rx] Allergies/Adverse Reactions: 3 Allergy/AdvReac Type Severity Reaction Status Date / Time Amoxicillin Allergy Difficulty Verified 01/06/18 09:29 Breathing cefdinir [From Omnicef] Allergy Anaphylaxis Verified 01/06/18 09:29 codeine Allergy Anaphylaxis Verified 01/06/18 09:29 [From Tylenol-Codeine #3] levofloxacin [From Levaquin] Allergy Anaphylaxis Verified 01/06/18 09:29 levothyroxine sodium Allergy Anaphylaxis Verified 01/06/18 09:29 Penicillins Allergy Anaphylaxis Verified 01/06/18 09:29 Date of admission: 01/06/18 03:51 Primary care physician: John Inman MD Consults: 01/06/18 15:59 Consult to Surgery [CONS] Routine Consulting Provider: [facility] Reason for Consult: Abdominal and Left axilla abscess Time Notified: 16:00 Call Completed: Yes - Constitutional Vitals: Temp Pulse Resp BP Pulse Ox 97.4 F L 78 18 156/80 91 01/09/18 05:40 01/09/18 05:40 01/09/18 05:40 01/09/18 05:40 01/09/18 05:40 General appearance: Present: A&O X 3, morbidly obese, no acute distress - Head Head exam: Present: atraumatic, normal inspection - Neck Neck exam general surgery: Present: supple - Respiratory Respiratory exam: Absent: rales, respiratory distress, rhonchi, wheezes - Cardiovascular Cardiovascular exam: Present: +S1, +S2 - GI/Abdominal GI/Abdominal exam: Present: normal bowel sounds, soft. Absent: rebound, rigid, tenderness Additional comments: improved erythema over ant abdomen wall. - Extremities Exam Extremities exam: Absent: calf tenderness, pedal edema, tenderness - Psychiatric Psychiatric exam: Present: normal affect, normal mood - Patient Status Disposition: Home, Self-Care Condition: Good Overall status at discharge: patient is back to baseline - Discharge Instructions Follow Up With: John Inman MD [Primary Care Provider] - Zaheer Brandon MD [Partnered Physician] - - Diet and Activity Activity: increase activity as tolerated Diet: low salt diet
[2018-01-09] MEDS ORDERED: Aminoglycoside Consult 1 EACH MC ONE (12:05)
[2018-01-09 12:20] LABS: Estimated Average Glucose 154 mg/dl
== END 2018-01-09 12:06 | disposition home or self-care (01) | DRG 603 ==
LOC: EMEROO 22:49 → 2ANU 22:49
PROVIDERS: ADMIT Internal Medicine; ATTEND Internal Medicine

== ENCOUNTER 2018-04-28 08:37 | Observation (INO) ==
[2018-04-28] MEDS ORDERED: methylPREDNISolone 125 MG/2 ML VIAL IVP ONE (09:00)
[2018-04-28] MEDS ORDERED: Ipratropium/Albuterol Neb 3 ML IH ONE (09:00)
--- NOTE | 2018-04-28 09:02 | Emergency Department Note ---
Disposition Clinical Impression: Acute exacerbation of chronic obstructive airways disease Disposition: Still a Patient Condition: Fair General Adult HPI - General Chief complaint: ED Shortness of Breath/Dyspnea Stated complaint: "nasrin,cp" Time Seen by Provider: 04/28/18 08:58 Source: patient Limitations: no limitations - History of Present Illness Pain Scale: 10 - Related Data Home Medications Medication Instructions Recorded Confirmed Montelukast [Singulair] 10 mg PO DAILY 05/13/16 04/28/18 Omeprazole [PriLOSEC] 40 mg PO BID 05/13/16 04/28/18 Thyroid,Pork [[place] Thyroid] 90 mg PO DAILY 05/13/16 04/28/18 Ipratropium/Albuterol Neb [Duoneb] 3 ml IH Q6HR PRN 05/14/16 04/28/18 Nitroglycerin [Nitrostat] 0.4 mg SL AD PRN 05/14/16 04/28/18 EPINEPHrine [Epipen] 0.3 mg IM ONCE PRN 12/16/16 04/28/18 Metformin HCl [Glucophage] 1,000 mg PO BID 12/16/16 04/28/18 Oxygen 3 l NS AD PRN 12/16/16 04/28/18 Linagliptin [Tradjenta] 5 mg PO DAILY 12/01/17 04/28/18 Naproxen Sodium [Aleve] 220 mg PO BID PRN 12/01/17 04/28/18 Clotrimazole 1% CRM [Lotrimin 1%] 1 appl TP BID 01/06/18 04/28/18 Cyanocobalamin (Vitamin B-12) 1,000 mg PO DAILY 01/06/18 04/28/18 [Vitamin B12] Tiotropium [place] [Spiriva 2 puff IH DAILY 01/06/18 04/28/18 Respimat] Albuterol Sulfate [Ventolin Hfa] 2 puff IH Q4H PRN 04/28/18 04/28/18 Previous Rx's Medication Instructions Recorded Lisinopril [Zestril] 10 mg PO DAILY 30 Days #30 tablet 12/05/17 Sulfamethoxazole/Trimeth DS 1 each PO BID #20 tablet 01/09/18 [Bactrim DS] Allergies Allergy/AdvReac Type Severity Reaction Status Date / Time Amoxicillin Allergy Difficulty Verified 04/28/18 09:00 Breathing cefdinir [From Omnicef] Allergy Anaphylaxis Verified 04/28/18 09:00 codeine Allergy Anaphylaxis Verified 04/28/18 09:00 [From Tylenol-Codeine #3] levofloxacin [From Levaquin] Allergy Anaphylaxis Verified 04/28/18 09:00 levothyroxine sodium Allergy Anaphylaxis Verified 04/28/18 09:00 Penicillins Allergy Anaphylaxis Verified 04/28/18 09:00 Past Medical History - Past Medical History Medical history: Reports: arthritis, CHF, COPD, diabetes, GERD, hypertension, venous stasis, other Surgical history: Reports: cholecystectomy, hysterectomy Psychiatric history: Reports: anxiety 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 - Social History Smoking Status: Current every day smoker Smokeless Tobacco Status: No Alcohol use: Reports: rarely Drug use: Reports: none Physical Exam - General Limitations: no limitations General appearance: alert, in no apparent distress Course Vital Signs Temperature 98.1 F 04/28/18 08:41 Pulse Rate 85 04/28/18 08:41 Respiratory Rate 22 04/28/18 08:41 Blood Pressure 137/78 04/28/18 08:41 O2 Sat by Pulse Oximetry 89 04/28/18 08:41 Temperature 98.0 F 04/28/18 15:29 Pulse Rate 114 04/28/18 15:29 Respiratory Rate 20 04/28/18 15:49 Blood Pressure 142/69 04/28/18 15:29 O2 Sat by Pulse Oximetry 92 04/28/18 15:49 Oxygen Delivery Oxygen Delivery Nasal Cannula Medical Decision Making - Lab Data Result diagrams: 04/28/18 09:09 04/28/18 09:09 Lab Results 04/28/18 04/28/18 04/28/18 Range/Units 09:09 09:09 09:09 WBC 8.9 (4.3-11.1) K/mcL RBC 4.48 (3.82-4.97) M/mcL Hgb 13.7 (11.5-15.4) g/dL Hct 42.1 (35.3-44.9) % MCV 94.0 (83.0-100.0) fL MCH 30.6 (28.0-33.3) pg MCHC 32.5 (31.6-35.5) g/dL RDW 12.9 (11.5-14.5) % Plt Count 236 (140-400) K/mcL MPV 9.9 (9.4-12.4) fL Immature Gran % 0.7 (0-4) % Seg Neutrophils % 60.6 % Lymphocytes % 29.5 % Monocytes % 6.8 % Eosinophils % 2.0 % Basophils % 0.4 % Neutrophils # 5.4 (1.6-8.9) K/mcL Lymphocytes # 2.6 (0.6-4.6) K/mcL Monocytes # 0.6 (0.0-1.3) K/mcL Eosinophils # 0.2 (0.0-0.6) K/mcL Basophils # 0.0 (0.0-0.2) K/mcL PT (9.4-12.1) Seconds INR Sodium 139 (136-145) mEq/L Potassium 3.8 (3.5-5.1) mEq/L Chloride 103 (98-107) mEq/L Carbon Dioxide 29 (23-29) mEq/L BUN 10 (6-20) mg/dL Creatinine 0.64 (0.60-1.20) mg/dL Est GFR ( Amer) > 60 (> 60) Est GFR (Non-Af Amer) > 60 (> 60) BUN/Creatinine Ratio 16 (6-26) Glucose 113 H (70-105) mg/dL Calculated Osmolality 288 (280-300) Calcium 9.5 (8.6-10.3) mg/dL Total Bilirubin 0.2 L (0.3-1.0) mg/dL Direct Bilirubin 0.1 (0.0-0.2) mg/dL Indirect Bilirubin 0.1 (0.0-1.2) mg/dL AST 14 (13-39) Units/L ALT 26 (7-52) Units/L Alkaline Phosphatase 76 (34-104) Units/L Troponin I < 0.03 (< 0.04) ng/mL B-Natriuretic Peptide 41 (Less than 100) pg/mL Serum Total Protein 7.0 (6.4-8.9) g/dL Albumin 4.2 (3.5-5.7) g/dL Globulin 2.8 (2.4-3.5) g/dL Albumin/Globulin Ratio 1.5 (1.1-2.2) 04/28/18 Range/Units 09:09 WBC (4.3-11.1) K/mcL RBC (3.82-4.97) M/mcL Hgb (11.5-15.4) g/dL Hct (35.3-44.9) % MCV (83.0-100.0) fL MCH (28.0-33.3) pg MCHC (31.6-35.5) g/dL RDW (11.5-14.5) % Plt Count (140-400) K/mcL MPV (9.4-12.4) fL Immature Gran % (0-4) % Seg Neutrophils % % Lymphocytes % % Monocytes % % Eosinophils % % Basophils % % Neutrophils # (1.6-8.9) K/mcL Lymphocytes # (0.6-4.6) K/mcL Monocytes # (0.0-1.3) K/mcL Eosinophils # (0.0-0.6) K/mcL Basophils # (0.0-0.2) K/mcL PT 11.2 (9.4-12.1) Seconds INR 1.0 Sodium (136-145) mEq/L Potassium (3.5-5.1) mEq/L Chloride (98-107) mEq/L Carbon Dioxide (23-29) mEq/L BUN (6-20) mg/dL Creatinine (0.60-1.20) mg/dL Est GFR ( Amer) (> 60) Est GFR (Non-Af Amer) (> 60) BUN/Creatinine Ratio (6-26) Glucose (70-105) mg/dL Calculated Osmolality (280-300) Calcium (8.6-10.3) mg/dL Total Bilirubin (0.3-1.0) mg/dL Direct Bilirubin (0.0-0.2) mg/dL Indirect Bilirubin (0.0-1.2) mg/dL AST (13-39) Units/L ALT (7-52) Units/L Alkaline Phosphatase (34-104) Units/L Troponin I (< 0.04) ng/mL B-Natriuretic Peptide (Less than 100) pg/mL Serum Total Protein (6.4-8.9) g/dL Albumin (3.5-5.7) g/dL Globulin (2.4-3.5) g/dL Albumin/Globulin Ratio (1.1-2.2) Attestation Statement - Attestation Attestation: I examined this patient and my medical decision-making was reviewed with the Resident Physician. I agree with the documented findings, disposition and treatment plan as described except to the extent set forth below. [id number] time provided Patient arrives complaining of dyspnea. She is oxygen dependent and has a history of COPD. Active tobacco smoker. Bronchospastic on exam with tachypnea. Patient evaluated in conjunction with the resident physician Dr. Kyle
--- NOTE | 2018-04-28 09:10 | Emergency Department Note ---
Disposition Clinical Impression: Acute exacerbation of chronic obstructive airways disease Disposition: Still a Patient Condition: Fair SOB HPI - General Chief Complaint: ED Shortness of Breath/Dyspnea Stated Complaint: "nasrin,cp" Time Seen by Provider: 04/28/18 08:58 Source: patient Limitations: no limitations - History of Present Illness 53 YO F here for SOB with history of COPD and MRSA. She has been having SOB for about 2 weeks. She believes she has had a respiratory infection for the past 2 weeks but did not seek treatment because she is currently on antibiotics for MRSA. She states that she has felt hot but has not measured her temp, has night sweats and chills. Patient given oxygen at home and uses as needed. She has noticed she need it more in the past few weeks. Endorses chest pain with breathing located in the posterior back around the 8-10 rib. Reports increased productive cough with green sputum. also is having pneumonia. Patient lives with 12 young children but states they are not sick. Smoker. Pt Subjective Complaint: shortness of breath Onset (ago): week(s) Context: recent illness Severity: severe Consistency/Duration: constant, gradually worsening Improves with: oxygen Worsens with: inspiration Associated symptoms: Reports: chest pain, pain with inspiration, fever Treatment prior to arrival: oxygen Cough present: Yes Cough Description: Voluntary, Productive Cough Frequency: Intermittent Sputum production: Yes Sputum Amount: Large Sputum Color: Green - Related Data Home Medications Medication Instructions Recorded Confirmed Montelukast [Singulair] 10 mg PO DAILY 05/13/16 04/28/18 Omeprazole [PriLOSEC] 40 mg PO BID 05/13/16 04/28/18 Thyroid,Pork [[place] Thyroid] 90 mg PO DAILY 05/13/16 04/28/18 Ipratropium/Albuterol Neb [Duoneb] 3 ml IH Q6HR PRN 05/14/16 04/28/18 Nitroglycerin [Nitrostat] 0.4 mg SL AD PRN 05/14/16 04/28/18 EPINEPHrine [Epipen] 0.3 mg IM ONCE PRN 12/16/16 04/28/18 Metformin HCl [Glucophage] 1,000 mg PO BID 12/16/16 04/28/18 Oxygen 3 l NS AD PRN 12/16/16 04/28/18 Linagliptin [Tradjenta] 5 mg PO DAILY 12/01/17 04/28/18 Naproxen Sodium [Aleve] 220 mg PO BID PRN 12/01/17 04/28/18 Clotrimazole 1% CRM [Lotrimin 1%] 1 appl TP BID 01/06/18 04/28/18 Cyanocobalamin (Vitamin B-12) 1,000 mg PO DAILY 01/06/18 04/28/18 [Vitamin B12] Tiotropium [place] [Spiriva 2 puff IH DAILY 01/06/18 04/28/18 Respimat] Albuterol Sulfate [Ventolin Hfa] 2 puff IH Q4H PRN 04/28/18 04/28/18 Previous Rx's Medication Instructions Recorded Lisinopril [Zestril] 10 mg PO DAILY 30 Days #30 tablet 12/05/17 Sulfamethoxazole/Trimeth DS 1 each PO BID #20 tablet 01/09/18 [Bactrim DS] Allergies Allergy/AdvReac Type Severity Reaction Status Date / Time Amoxicillin Allergy Difficulty Verified 04/28/18 09:00 Breathing cefdinir [From Omnicef] Allergy Anaphylaxis Verified 04/28/18 09:00 codeine Allergy Anaphylaxis Verified 04/28/18 09:00 [From Tylenol-Codeine #3] levofloxacin [From Levaquin] Allergy Anaphylaxis Verified 04/28/18 09:00 levothyroxine sodium Allergy Anaphylaxis Verified 04/28/18 09:00 Penicillins Allergy Anaphylaxis Verified 04/28/18 09:00 Past Medical History - Past Medical History Medical history: Reports: arthritis, CHF, COPD, diabetes, GERD, hypertension, venous stasis, other Surgical history: Reports: cholecystectomy, hysterectomy Psychiatric history: Reports: anxiety 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 - Social History Smoking Status: Current every day smoker Smokeless Tobacco Status: No Alcohol use: Reports: rarely Drug use: Reports: none Physical Exam - General Limitations: no limitations General appearance: alert, in no apparent distress - Head Head exam: atraumatic, normocephalic - Chest Chest inspection: Present: normal inspection, symmetric chest wall rise - Respiratory Respiratory exam: Present: respiratory distress, wheezes, accessory muscle use, prolonged expiratory phase - Cardiovascular Cardiovascular exam: Present: regular rate, normal rhythm, normal heart sounds - Neurological Exam Neurological exam: Present: alert - Psychiatric Psychiatric exam: Present: normal affect, normal mood Course Course Narrative: 53 YO F with COPD and SOB with 2 week history of respiratory tract infection. Most likely COPD exacerbation. - CXR ordered - BNP, EKG, tropiins. - Reevaluation(s) Reevaluation #1: CXR was negative for lung pathology. Given chest pain with breathing, COPD, and increased oxygen need would like to admit patient for management. [employer] hospitalist - okay to admit. Vital Signs Temperature 98.1 F 04/28/18 08:41 Pulse Rate 85 04/28/18 08:41 Respiratory Rate 22 04/28/18 08:41 Blood Pressure 137/78 04/28/18 08:41 O2 Sat by Pulse Oximetry 89 04/28/18 08:41 Temperature 98.0 F 04/28/18 12:08 Pulse Rate 85 04/28/18 12:08 Respiratory Rate 20 04/28/18 12:08 Blood Pressure 130/95 04/28/18 12:08 O2 Sat by Pulse Oximetry 93 04/28/18 12:08 Oxygen Delivery Oxygen Delivery Nasal Cannula Shortness of Breath/Dyspnea - Lab Data Result diagrams: 04/28/18 09:09 04/28/18 09:09 Lab Results 04/28/18 04/28/18 04/28/18 Range/Units 09:09 09:09 09:09 WBC 8.9 (4.3-11.1) K/mcL RBC 4.48 (3.82-4.97) M/mcL Hgb 13.7 (11.5-15.4) g/dL Hct 42.1 (35.3-44.9) % MCV 94.0 (83.0-100.0) fL MCH 30.6 (28.0-33.3) pg MCHC 32.5 (31.6-35.5) g/dL RDW 12.9 (11.5-14.5) % Plt Count 236 (140-400) K/mcL MPV 9.9 (9.4-12.4) fL Immature Gran % 0.7 (0-4) % Seg Neutrophils % 60.6 % Lymphocytes % 29.5 % Monocytes % 6.8 % Eosinophils % 2.0 % Basophils % 0.4 % Neutrophils # 5.4 (1.6-8.9) K/mcL Lymphocytes # 2.6 (0.6-4.6) K/mcL Monocytes # 0.6 (0.0-1.3) K/mcL Eosinophils # 0.2 (0.0-0.6) K/mcL Basophils # 0.0 (0.0-0.2) K/mcL PT (9.4-12.1) Seconds INR Sodium 139 (136-145) mEq/L Potassium 3.8 (3.5-5.1) mEq/L Chloride 103 (98-107) mEq/L Carbon Dioxide 29 (23-29) mEq/L BUN 10 (6-20) mg/dL Creatinine 0.64 (0.60-1.20) mg/dL Est GFR ( Amer) > 60 (> 60) Est GFR (Non-Af Amer) > 60 (> 60) BUN/Creatinine Ratio 16 (6-26) Glucose 113 H (70-105) mg/dL Calculated Osmolality 288 (280-300) Calcium 9.5 (8.6-10.3) mg/dL Total Bilirubin 0.2 L (0.3-1.0) mg/dL Direct Bilirubin 0.1 (0.0-0.2) mg/dL Indirect Bilirubin 0.1 (0.0-1.2) mg/dL AST 14 (13-39) Units/L ALT 26 (7-52) Units/L Alkaline Phosphatase 76 (34-104) Units/L Troponin I < 0.03 (< 0.04) ng/mL B-Natriuretic Peptide 41 (Less than 100) pg/mL Serum Total Protein 7.0 (6.4-8.9) g/dL Albumin 4.2 (3.5-5.7) g/dL Globulin 2.8 (2.4-3.5) g/dL Albumin/Globulin Ratio 1.5 (1.1-2.2) 04/28/18 Range/Units 09:09 WBC (4.3-11.1) K/mcL RBC (3.82-4.97) M/mcL Hgb (11.5-15.4) g/dL Hct (35.3-44.9) % MCV (83.0-100.0) fL MCH (28.0-33.3) pg MCHC (31.6-35.5) g/dL RDW (11.5-14.5) % Plt Count (140-400) K/mcL MPV (9.4-12.4) fL Immature Gran % (0-4) % Seg Neutrophils % % Lymphocytes % % Monocytes % % Eosinophils % % Basophils % % Neutrophils # (1.6-8.9) K/mcL Lymphocytes # (0.6-4.6) K/mcL Monocytes # (0.0-1.3) K/mcL Eosinophils # (0.0-0.6) K/mcL Basophils # (0.0-0.2) K/mcL PT 11.2 (9.4-12.1) Seconds INR 1.0 Sodium (136-145) mEq/L Potassium (3.5-5.1) mEq/L Chloride (98-107) mEq/L Carbon Dioxide (23-29) mEq/L BUN (6-20) mg/dL Creatinine (0.60-1.20) mg/dL Est GFR ( Amer) (> 60) Est GFR (Non-Af Amer) (> 60) BUN/Creatinine Ratio (6-26) Glucose (70-105) mg/dL Calculated Osmolality (280-300) Calcium (8.6-10.3) mg/dL Total Bilirubin (0.3-1.0) mg/dL Direct Bilirubin (0.0-0.2) mg/dL Indirect Bilirubin (0.0-1.2) mg/dL AST (13-39) Units/L ALT (7-52) Units/L Alkaline Phosphatase (34-104) Units/L Troponin I (< 0.04) ng/mL B-Natriuretic Peptide (Less than 100) pg/mL Serum Total Protein (6.4-8.9) g/dL Albumin (3.5-5.7) g/dL Globulin (2.4-3.5) g/dL Albumin/Globulin Ratio (1.1-2.2)
[2018-04-28 09:31] LABS: Basophils % 0.4 %; Eosinophils # 0.2 K/mcL (0.0-0.6); Hematocrit 42.1 % (35.3-44.9); Hemoglobin 13.7 g/dL (11.5-15.4); Immature Granulocytes % 0.7 % (0-4); Lymphocytes # 2.6 K/mcL (0.6-4.6); Lymphocytes % 29.5 %; Mean Corpuscular HGB Conc 32.5 g/dL (31.6-35.5); Mean Corpuscular Hemoglobin 30.6 pg (28.0-33.3); Mean Platelet Volume 9.9 fL (9.4-12.4); Monocytes # 0.6 K/mcL (0.0-1.3); Monocytes % 6.8 %; Neutrophils # 5.4 K/mcL (1.6-8.9); Platelet Count 236 K/mcL (140-400); Red Blood Count 4.48 M/mcL (3.82-4.97); Red Cell Distribution Width 12.9 % (11.5-14.5); Segmented Neutrophils % 60.6 %
[2018-04-28 09:41] LABS: Prothrombin Time 11.2 Seconds (9.4-12.1)
[2018-04-28 09:48] LABS: Troponin I < 0.03 ng/mL (< 0.04)
[2018-04-28 09:49] LABS: Alanine Aminotransferase 26 Units/L (7-52); Albumin 4.2 g/dL (3.5-5.7); Albumin/Globulin Ratio 1.5 (1.1-2.2); Alkaline Phosphatase 76 Units/L (34-104); Aspartate Amino Transferase 14 Units/L (13-39); BUN/Creatinine Ratio 16 (6-26); Bilirubin,Direct 0.1 mg/dL (0.0-0.2); Bilirubin,Indirect 0.1 mg/dL (0.0-1.2); Bilirubin,Total 0.2 mg/dL (0.3-1.0); Blood Urea Nitrogen 10 mg/dL (6-20); Calcium 9.5 mg/dL (8.6-10.3); Carbon Dioxide 29 mEq/L (23-29); Chloride 103 mEq/L (98-107); Globulin 2.8 g/dL (2.4-3.5); Glucose 113 mg/dL (70-105); Osmolality,Calculated 288 (280-300); Potassium 3.8 mEq/L (3.5-5.1); Sodium 139 mEq/L (136-145); eGFR For Non-African Americans > 60 (> 60)
[2018-04-28] MEDS ORDERED: Albuterol 2.5 MG/3 ML NEBULIZER IH PRN (13:24)
--- NOTE | 2018-04-28 13:31 | Internal Med History&Physical ---
Date of Encounter: 04/28/18 Time of Encounter: 13:28 Internal Medicine - H&P: HPI Chief complaint: Shortness of breath Admitted From: Home Plans for Post Hospital Care: Home History of present illness: Ms. Archer is a 53 year old female with medical history of chronic respiratory failure on home oxygen, COPD, hypertension, diabetes, morbid obesity, history of MRSA abdominal wall skin infection. She presents with complains of shortness of breath and worsening cough with phlegm production and increasing O2 requirements. She continues to smoke, she reports she is meant to be on continuos oxygen but has been using it as required because she "doesnt want her CO2 to build up. She denies recent travels , but reports her was recently hospitalized for COPDE and she thinks she caught a bug from him. She received Solumedrol in the ER, as well as breathing treatment and was presented for admission At time of review, she is in no form of distress and is hemodynamically stalble at this time She will be placed on observation for COPDE She does have a hx of MRSA abdominal wall infection but does not currently look infected She is full code Past Med Surg Social Fam HX - Past Medical History Medical history: arthritis, CHF, COPD, diabetes, GERD, hypertension, venous stasis, other Additional medical history: Lupus Psychiatric history: anxiety - Past Surgical History Surgical History: cholecystectomy, hysterectomy Additional surgical history: thyroid tumore removal, bladder tumor removal - Social History Smoking Status: Current every day smoker Smokeless Tobacco Status: No Alcohol use: rarely Drug use: none - Family History Brother Living Status: Still Living Hx Family Cardiac Disorders: Yes (DC, HTN, HLD) Sister Living Status: Still Living Hx Family Cardiac Disorders: Yes (DC, HLD, HTN) Hx Family Respiratory Disorders: Yes (COPD) Hx Family Endocrine Disorder: Yes (DM) Hx Family Autoimmune Disorders: Yes (Lupus) Mother Living Status: Hx Family Cancer: Yes (Liver) Hx Family Autoimmune Disorders: Yes (lupus) Father Adopted: No Family Member Ethnicity: Unknown Living Status: Hx Family Cardiac Disorders: Yes (HTN, HLD, DC, HD) Hx Family Respiratory Disorders: Yes Hx Family Cancer: No Hx Family GI Disorders: No Hx Family Endocrine Disorder: No Hx Family Neuromuscular Disorders: No Hx Family Neurologic Disorders: No Hx Family HEENT Disorders: No Hx Family Autoimmune Disorders: No Internal Medicine - H&P: Meds Montelukast [Singulair] 10 mg PO DAILY 05/13/16 [History] Omeprazole [PriLOSEC] 40 mg PO BID 05/13/16 [History] Thyroid,Pork [[place] Thyroid] 90 mg PO DAILY 05/13/16 [History] Ipratropium/Albuterol Neb [Duoneb] 3 ml IH Q6HR PRN 05/14/16 [History] Nitroglycerin [Nitrostat] 0.4 mg SL AD PRN 05/14/16 [History] EPINEPHrine [Epipen] 0.3 mg IM ONCE PRN 12/16/16 [History] Metformin HCl [Glucophage] 1,000 mg PO BID 12/16/16 [History] Oxygen 3 l NS AD PRN 12/16/16 [History] Linagliptin [Tradjenta] 5 mg PO DAILY 12/01/17 [History] Naproxen Sodium [Aleve] 220 mg PO BID PRN 12/01/17 [History] Lisinopril [Zestril] 10 mg PO DAILY 30 Days #30 tablet 12/05/17 [Rx] Clotrimazole 1% CRM [Lotrimin 1%] 1 appl TP BID 01/06/18 [History] Cyanocobalamin (Vitamin B-12) [Vitamin B12] 1,000 mg PO DAILY 01/06/18 [History] Tiotropium [place] [Spiriva Respimat] 2 puff IH DAILY 01/06/18 [History] Sulfamethoxazole/Trimeth DS [Bactrim DS] 1 each PO BID #20 tablet 01/09/18 [Rx] Albuterol Sulfate [Ventolin Hfa] 2 puff IH Q4H PRN 04/28/18 [History] 3 Allergy/AdvReac Type Severity Reaction Status Date / Time Amoxicillin Allergy Difficulty Verified 04/28/18 09:00 Breathing cefdinir [From Omnicef] Allergy Anaphylaxis Verified 04/28/18 09:00 codeine Allergy Anaphylaxis Verified 04/28/18 09:00 [From Tylenol-Codeine #3] levofloxacin [From Levaquin] Allergy Anaphylaxis Verified 04/28/18 09:00 levothyroxine sodium Allergy Anaphylaxis Verified 04/28/18 09:00 Penicillins Allergy Anaphylaxis Verified 04/28/18 09:00 All Systems PM: A 10-system review of systems was performed and is negative for pertinent findings except as documented above in the HPI. - Constitutional Constitutional: no chills, no fever(s), no night sweats - EENT Eyes: no change in vision, no discharge, no pain, no photophobia - Cardiovascular Cardiovascular ROS IM: as per HPI - Respiratory Respiratory: as per HPI - Gastrointestinal Gastrointestinal: no abdominal pain, no diarrhea, no hematemesis, no hematochezia, no melena, no nausea, no vomiting - Musculoskeletal Musculoskeletal ROS IM: no numbness, no tingling - Integumentary Integumentary IM: no rash, no unusual bruising - Neurological Neurological ROS: no confusion, no convulsions, no focal weakness, no numbness, no tingling, no tremor(s) - Hematologic/Lymphatic Hematologic/Lymphatic: no easy bruising - Constitutional Vitals: Temp Pulse Resp BP Pulse Ox 98.0 F 85 20 130/95 93 04/28/18 12:08 04/28/18 12:08 04/28/18 12:08 04/28/18 12:08 04/28/18 12:08 General appearance: Present: A&O X 3, morbidly obese, pleasant, no acute distress Exam: see detailed exam below - Head Head exam: Present: atraumatic, normocephalic - Eye Eye exam: Present: PERRL, conjuntiva pink, sclera anicteric Pupils: Present: PERRL - Neck Neck exam general surgery: Present: supple, trachea midline. Absent: lymphadenopathy - Respiratory Respiratory exam: Present: CTAB. Absent: accessory muscle use, rales, rhonchi, wheezes - Cardiovascular Cardiovascular exam: Present: RRR, +S1, +S2. Absent: diastolic murmur, gallop, rubs, systolic murmur - GI/Abdominal GI/Abdominal exam: Present: normal bowel sounds, soft, no peritoneal signs. Absent: distended, tenderness Additional comments: healed abdominal wall lesions - Extremities Exam Extremities exam: Present: warm, radial pulses palpable and symmetrical. Absent : calf tenderness, cyanotic, pedal edema - Neurological Exam Neurological exam: Present: alert, CN II-XII intact, oriented X3, no focal deficits. Absent: pronater drift, facial droop, speech deficit - Skin Skin exam: Present: dry, intact Internal Med - H&P Results - Labs CBC & Chem 7: 04/28/18 09:09 04/28/18 09:09 - Assessment and plan (1) COPD exacerbation Current Visit: Yes Status: Acute Assessment and plan: currently clinically stable Continue duonebs q4h, prednisone, O2 supplementation Doxycycline IV BID Continue to monitor Will send sputum for culture Recommend requalification for home O2 upon discharge (2) Chest pain Current Visit: Yes Status: Acute Assessment and plan: Pleuritc chest pain, likely due to bronchitis No findings on CXR Continue management as in COPDE Tylenol/NSAIDs prn Chest pain free at time of review Qualifiers: Chest pain type: chest pain on breathing Qualified Code(s): R07.1 - Chest pain on breathing; R07.81 - Pleurodynia (3) Chronic respiratory failure with hypoxia Current Visit: Yes Status: Chronic Assessment and plan: patient prescribed continuous O2. Continue O2 supplement, requalify prior to discharge (4) DVT prophylaxis Current Visit: Yes Status: Acute Assessment and plan: SQ heparin (5) Obesity Current Visit: Yes Status: Chronic Assessment and plan: lifestyle modification Qualifiers: Obesity type: unspecified obesity type Obesity classification: adult class 3 (BMI >= 40) Serious obesity comorbidity presence: unspecified whether serious comorbidity present Body mass index: BMI 40.0-44.9 Qualified Code(s) : E66.01 - Morbid (severe) obesity due to excess calories; Z68.41 - Body mass index (BMI) 40.0-44.9, adult (6) CAD (coronary artery disease) Current Visit: Yes Status: Chronic Assessment and plan: Continue home meds Qualifiers: Coronary Disease-Associated Artery/Lesion type: [place] artery [place] vs. transplanted heart: [place] heart Associated angina: without angina Qualified Code(s): I25.10 - Atherosclerotic heart disease of [place] coronary artery without angina pectoris (7) Diabetes Current Visit: Yes Status: Chronic Assessment and plan: FS ACHS Sliding scale insulin ADA diet Qualifiers: 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 type: type 2 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 detention insulin use: without oysterman use 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 complication status: without complication Qualified Code(s): E11.9 - Type 2 diabetes mellitus without complications (8) GERD (gastroesophageal reflux disease) Current Visit: Yes Status: Chronic Assessment and plan: Continue home meds Qualifiers: Esophagitis presence: without esophagitis Qualified Code(s): K21.9 - Gastro -esophageal reflux disease without esophagitis (9) Hypertension Current Visit: Yes Status: Chronic Assessment and plan: Continue home medications Qualifiers: Hypertension type: essential hypertension Qualified Code(s): I10 - Essential (primary) hypertension (10) Hypothyroidism Current Visit: Yes Status: Chronic Assessment and plan: Continue home meds Qualifiers: Hypothyroidism type: unspecified Qualified Code(s): E03.9 - Hypothyroidism , unspecified (11) Morbid obesity Current Visit: Yes Status: Chronic Assessment and plan: Lifestyle modification (12) Sleep apnea Current Visit: Yes Status: Chronic Assessment and plan: Continue CPAP at night Qualifiers: Sleep apnea type: unspecified type Qualified Code(s): G47.30 - Sleep apnea , unspecified (13) Tobacco abuse Current Visit: Yes Status: Chronic Assessment and plan: Tobacco cessation counselling (14) Abdominal wall cellulitis Current Visit: No Status: Resolved Assessment and plan: Resolved Patient was on bactrim prior to admission and has 3 more doses We have started her on docycycline for COPDE, and this should also cover her abdominal wall infection At this time on exam, her abdominal skin is dry, intact without any cellulitis - Time Spent With Patient Total time spent is greater than 50% in coordination of care (as documented) at patient's floor/unit and/or counseling patient:
[2018-04-28] MEDS ORDERED: *HR* Dextrose 50 % in Water (Syg) 50 ML SYRINGE IVP PRN (13:54)
[2018-04-28] MEDS ORDERED: D5% in Water 1,000 ML IVC PRN (13:54)
[2018-04-28] MEDS ORDERED: Dextrose Gel 15 GM/37.5 ML TUBE PO PRN ×2 (13:54)
[2018-04-28] MEDS ORDERED: Azithromycin 500 MG in D5% in Water 250 ML IVPB SCH (14:00)
[2018-04-28 15:03] LABS: Adenovirus Not Detected (Not Detect); Coronavirus 229E Not Detected (Not Detect); Coronavirus HKU1 Not Detected (Not Detect); Coronavirus NL63 Not Detected (Not Detect); Coronavirus OC43 Not Detected (Not Detect); Human Metapneumovirus Not Detected (Not Detect); Human Rhinovirus/Enterovirus DETECTED (Not Detect); Influenza A Subtype 2009 H1 Not Detected (Not Detect); Influenza A Untypeable Not Detected (Not Detect); Influenza B Not Detected (Not Detect)
[2018-04-28 15:04] LABS: Bordetella Pertussis Not Detected (Not Detect); Chlamydophila pneumoniae Not Detected (Not Detect); Mycoplasma pneumoniae Not Detected (Not Detect); Parainfluenza Virus 1 Not Detected (Not Detect); Parainfluenza Virus 2 Not Detected (Not Detect); Parainfluenza Virus 3 Not Detected (Not Detect); Parainfluenza Virus 4 Not Detected (Not Detect); Respiratory Syncytial Virus Not Detected (Not Detect)
[2018-04-28] MEDS: Ipratropium/Albuterol Neb 3 ML IH SCH ×2 (15:20→21:45)
[2018-04-28] MEDS: Insulin LISPRO 300 UNITS/3 ML VIAL SQ SCH (16:56)
[2018-04-28] MEDS: Doxycycline 100 MG in 0.9 % Sodium Chloride Mini Bag 100 ML IVPB SCH (16:56)
[2018-04-28] MEDS: Clotrimazole 1% CRM 15 GM TUBE TP SCH (20:27)
[2018-04-28] MEDS ORDERED: Insulin LISPRO 300 UNITS/3 ML VIAL SQ SCH (21:00)
[2018-04-29] MEDS: Ipratropium/Albuterol Neb 3 ML IH SCH ×2 (04:33→10:47)
[2018-04-29] MEDS: Doxycycline 100 MG in 0.9 % Sodium Chloride Mini Bag 100 ML IVPB SCH (05:15)
[2018-04-29 06:14] LABS: Alanine Aminotransferase 25 Units/L (7-52); Albumin/Globulin Ratio 1.7 (1.1-2.2); Alkaline Phosphatase 93 Units/L (34-104); Aspartate Amino Transferase 12 Units/L (13-39); BUN/Creatinine Ratio 20 (6-26); Bilirubin,Total 0.2 mg/dL (0.3-1.0); Blood Urea Nitrogen 14 mg/dL (6-20); Calcium 9.1 mg/dL (8.6-10.3); Carbon Dioxide 24 mEq/L (23-29); Chloride 102 mEq/L (98-107); Globulin 2.3 g/dL (2.4-3.5); Glucose 324 mg/dL (70-105); Osmolality,Calculated 295 (280-300); Potassium 4.5 mEq/L (3.5-5.1); Sodium 136 mEq/L (136-145); Total Protein 6.3 g/dL (6.4-8.9); eGFR For Non-African Americans > 60 (> 60)
[2018-04-29 07:39] VITALS: BP 139/75
[2018-04-29] MEDS: Clotrimazole 1% CRM 15 GM TUBE TP SCH (08:21)
[2018-04-29] MEDS: Insulin LISPRO 300 UNITS/3 ML VIAL SQ SCH ×2 (08:21→11:42)
[2018-04-29] MEDS ORDERED: Cyanocobalamin (B-12) 1,000 MCG TABLET PO SCH (09:00)
[2018-04-29] MEDS ORDERED: THYROID PORK 90 MG PO SCH (09:00)
[2018-04-29] MEDS ORDERED: predniSONE 20 MG TABLET PO SCH (09:00)
--- NOTE | 2018-04-29 12:36 | Discharge Summary ---
- NOTES TO OUTPATIENT PROVIDER Notes to Outpatient Provider: Recommend routine hospital follow-up Orders not resulted at time of discharge: Pending orders 04/29/18 08:12 Sputum Culture [Culture,Sputum with Gram Stain] [] Routine Date of Encounter: 04/29/18 Time of Encounter: 12:33 - Discharge Diagnosis (1) COPD exacerbation Priority: Primary Status: Acute (2) Chronic respiratory failure with hypoxia Priority: Secondary Status: Chronic (3) Abdominal wall cellulitis Priority: Secondary Status: Chronic (4) Chest pain Priority: Primary Status: Resolved Qualifiers: Chest pain type: chest pain on breathing Qualified Code(s): R07.1 - Chest pain on breathing; R07.81 - Pleurodynia (5) Diabetes Priority: Secondary Status: Chronic Qualifiers: 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 type: type 2 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 buttermaker helper insulin use: without nursing home use 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 complication status: without complication Qualified Code(s): E11.9 - Type 2 diabetes mellitus without complications (6) Hypertension Priority: Primary Status: Chronic Qualifiers: Hypertension type: essential hypertension Qualified Code(s): I10 - Essential (primary) hypertension (7) Tobacco abuse Priority: Primary Status: Chronic (8) CAD (coronary artery disease) Priority: Secondary Status: Chronic Qualifiers: Coronary Disease-Associated Artery/Lesion type: [place] artery [place] vs. transplanted heart: [place] heart Associated angina: without angina Qualified Code(s): I25.10 - Atherosclerotic heart disease of [place] coronary artery without angina pectoris (9) Sleep apnea Priority: Secondary Status: Chronic Qualifiers: Sleep apnea type: unspecified type Qualified Code(s): G47.30 - Sleep apnea , unspecified (10) Obesity Priority: Secondary Status: Chronic Qualifiers: Obesity type: unspecified obesity type Obesity classification: adult class 3 (BMI >= 40) Serious obesity comorbidity presence: unspecified whether serious comorbidity present Body mass index: BMI 40.0-44.9 Qualified Code(s) : E66.01 - Morbid (severe) obesity due to excess calories; Z68.41 - Body mass index (BMI) 40.0-44.9, adult (11) Hypothyroidism Priority: Secondary Status: Chronic Qualifiers: Hypothyroidism type: unspecified Qualified Code(s): E03.9 - Hypothyroidism , unspecified (12) GERD (gastroesophageal reflux disease) Priority: Secondary Status: Chronic Qualifiers: Esophagitis presence: without esophagitis Qualified Code(s): K21.9 - Gastro -esophageal reflux disease without esophagitis (13) Morbid obesity Priority: Secondary Status: Chronic Hospital course: Ms. Archer is a 53 year old female with PMH CAD, COPD, chronic respiratory failure, hypertension, diabetes, morbid obesity, abdominal wall cellulitis and FRANCESCA presented to [facility] 04[facility]28[facility]2018 with complaints of shortness of breath. She was found to be in acute COPD exacerbation was admitted for further workup and treatment. During hospitalization she underwent a CXR which was unremarkable. Resp PCR showed entero/rhinovirus. Her symptoms significantly improved with IV ATB and steroids. He was adequately oxygenating on home dose of 3 liters. On day of discharge she stated significant improvement and she requested discharge home. She was advised to return to the ER if SOB recurred or worsened. She was advised on smoking cessation as well. Discharge discussed with: patient (Seen and examined at bedside. Patient is new to me; patient obtained from chart review. Says she feels better and wants to go ) - Time Spent with Patient Total time spent providing and/or coordinating discharge services: - Discharge Medications Prescriptions: levoFLOXacin [Levaquin] 750 mg PO DAILY #7 tablet predniSONE [PredniSONE] 40 mg PO DAILY #10 tablet Home Medications: Montelukast [Singulair] 10 mg PO DAILY 05/13/16 [History] Omeprazole [PriLOSEC] 40 mg PO BID 05/13/16 [History] Thyroid,Pork [[place] Thyroid] 90 mg PO DAILY 05/13/16 [History] Ipratropium/Albuterol Neb [Duoneb] 3 ml IH Q6HR PRN 05/14/16 [History] Nitroglycerin [Nitrostat] 0.4 mg SL AD PRN 05/14/16 [History] EPINEPHrine [Epipen] 0.3 mg IM ONCE PRN 12/16/16 [History] Metformin HCl [Glucophage] 1,000 mg PO BID 12/16/16 [History] Oxygen 3 l NS AD PRN 12/16/16 [History] Linagliptin [Tradjenta] 5 mg PO DAILY 12/01/17 [History] Naproxen Sodium [Aleve] 220 mg PO BID PRN 12/01/17 [History] Lisinopril [Zestril] 10 mg PO DAILY 30 Days #30 tablet 12/05/17 [Rx] Clotrimazole 1% CRM [Lotrimin 1%] 1 appl TP BID 01/06/18 [History] Cyanocobalamin (Vitamin B-12) [Vitamin B12] 1,000 mg PO DAILY 01/06/18 [History] Tiotropium [place] [Spiriva Respimat] 2 puff IH DAILY 01/06/18 [History] Albuterol Sulfate [Ventolin Hfa] 2 puff IH Q4H PRN 04/28/18 [History] levoFLOXacin [Levaquin] 750 mg PO DAILY #7 tablet 04/29/18 [Rx] predniSONE [PredniSONE] 40 mg PO DAILY #10 tablet 04/29/18 [Rx] Allergies/Adverse Reactions: 3 Allergy/AdvReac Type Severity Reaction Status Date / Time Amoxicillin Allergy Difficulty Verified 04/28/18 09:00 Breathing cefdinir [From Omnicef] Allergy Anaphylaxis Verified 04/28/18 09:00 codeine Allergy Anaphylaxis Verified 04/28/18 09:00 [From Tylenol-Codeine #3] levofloxacin [From Levaquin] Allergy Anaphylaxis Verified 04/28/18 09:00 levothyroxine sodium Allergy Anaphylaxis Verified 04/28/18 09:00 Penicillins Allergy Anaphylaxis Verified 04/28/18 09:00 Date of admission: 04/28/18 10:44 Primary care physician: John Inman MD Consults: 04/28/18 13:24 Consult to Nurse Navigator [CONS] Routine Comment: 04/29/18 08:45 Consult to Scalp Treatment Specialist [CONS] Routine Reason for SW Consult: PATIENT FROM HOME WHERE SHE LIVES WITH HER DAUGHTER AND MULTIPLE CHILDREN. PATIENT STATES THAT SHE HAS CUSTODY OF THE CHILDREN IN THE HOME, BUT DOES NOT WANT TO RETURN TO HER HOME AT D/C. WANTS TO GO TO A HOMELESS [facility]. POSSIBLE NEED FOR CPS INVOLVEMENT. Discharging clinician: Minal Pérez Anticipated date of discharge: 04/29/18 - Constitutional Vitals: Temp Pulse Resp BP Pulse Ox 97.6 F 77 18 139/75 90 04/29/18 07:38 04/29/18 07:38 04/29/18 10:50 04/29/18 07:38 04/29/18 10:50 General appearance: Present: A&O X 3, morbidly obese, pleasant, no acute distress Exam: . - Head Head exam: Present: atraumatic, normocephalic - Eye Eye exam: Present: PERRL, conjuntiva pink, sclera anicteric Pupils: Present: PERRL - Neck Neck exam general surgery: Present: supple, trachea midline. Absent: lymphadenopathy - Respiratory Respiratory exam: Present: CTAB. Absent: accessory muscle use, rales, rhonchi, wheezes - Cardiovascular Cardiovascular exam: Present: RRR, +S1, +S2. Absent: diastolic murmur, gallop, rubs, systolic murmur - GI/Abdominal GI/Abdominal exam: Present: normal bowel sounds, soft, no peritoneal signs. Absent: distended, tenderness - Extremities Exam Extremities exam: Present: warm, radial pulses palpable and symmetrical. Absent : calf tenderness, cyanotic, pedal edema - Neurological Exam Neurological exam: Present: CN II-XII intact, oriented X3, no focal deficits. Absent: pronater drift, facial droop, speech deficit - Skin Skin exam: Present: dry, intact - Patient Status Disposition: Home, Self-Care Condition: Good Functional capacity at discharge: independent ambulation Overall status at discharge: patient is progressing back to baseline - Discharge Instructions Instructions: Chronic Obstructive Pulmonary Disease (DC), Levofloxacin (By mouth), Prednisone (By mouth), How to Stop Smoking (DC) Follow Up With: John Inman MD [Primary Care Provider] - 05/02/18 11:00 am - Diet and Activity Activity: increase activity as tolerated Diet: advance to your usual diet
--- NOTE | 2018-04-29 18:06 | Electrocardiograph Report ---
Robeline Stellarray [facility] Test Date: 2018-04-28 Pat Name: Pearl Archer Department: [id number] Room: 3B22 Gender: F Property Utilization Manager: : 1965 Requested By: Max Patel Order Number: [id number] Reading MD: Rishi Mueller Measurements Intervals [place] Rate: 81 P: 46 HI: 178 QRS: 68 QRSD: 117 T: 51 QT: 376 QTc: 437 Interpretive Statements Sinus rhythm Nonspecific intraventricular conduction delay Low voltage, precordial leads Electronically Signed On 04-29-2018 18:04:41 EDT by Rishi Mueller
== END 2018-04-29 13:23 | disposition home or self-care (01) ==
LOC: EMEROOARM 08:37 → 3BNU 08:37
PROVIDERS: ADMIT Internal Medicine; ATTEND Internal Medicine

== ENCOUNTER 2019-06-14 11:23 | Inpatient (IN) ==
[2019-06-14] MEDS ORDERED: Aspirin 81 MG TAB.CHEW PO ONE (11:54)
[2019-06-14] MEDS ORDERED: Nitroglycerin 0.4 MG TAB.SUBL SL PRN (11:54)
[2019-06-14] MEDS ORDERED: methylPREDNISolone 125 MG/2 ML VIAL IVP ONE (11:55)
[2019-06-14] MEDS ORDERED: Ipratropium/Albuterol Neb 3 ML IH ONE (11:55)
[2019-06-14 12:26] LABS: Basophils % 0.3 %; Eosinophils # 0.2 K/mcL (0.0-0.6); Eosinophils % 2.4 %; Hemoglobin 13.2 g/dL (11.5-15.4); Immature Granulocytes % 0.4 % (0-4); Lymphocytes % 22.4 %; Mean Corpuscular HGB Conc 33.8 g/dL (31.6-35.5); Mean Corpuscular Hemoglobin 31.4 pg (28.0-33.3); Mean Corpuscular Volume 92.6 fL (83.0-100.0); Mean Platelet Volume 10.4 fL (9.4-12.4); Monocytes # 0.5 K/mcL (0.0-1.3); Neutrophils # 6.1 K/mcL (1.6-8.9); Platelet Count 188 K/mcL (140-400); Red Blood Count 4.21 M/mcL (3.82-4.97); Red Cell Distribution Width 13.1 % (11.5-14.5); Segmented Neutrophils % 68.5 %; White Blood Count 8.9 K/mcL (4.3-11.1)
[2019-06-14] MEDS ORDERED: Furosemide 40 MG/4 ML VIAL IVP ONE (12:51)
[2019-06-14 13:09] LABS: BUN/Creatinine Ratio 16 (6-26); Blood Urea Nitrogen 9 mg/dL (6-20); Calcium 8.8 mg/dL (8.6-10.3); Carbon Dioxide 26 mEq/L (23-29); Chloride 106 mEq/L (98-107); Glucose 101 mg/dL (70-105); Osmolality,Calculated 289 (280-300); Potassium 3.9 mEq/L (3.5-5.1); Sodium 140 mEq/L (136-145); eGFR For African Americans > 60 (> 60); eGFR For Non-African Americans > 60 (> 60)
[2019-06-14 13:10] LABS: Troponin I < 0.03 ng/mL (< 0.04)
[2019-06-14] MEDS ORDERED: Ondansetron ODT 4 MG TAB.RAPDIS SL PRN (15:18)
[2019-06-14] MEDS ORDERED: *HR* Promethazine 25 MG/ML VIAL IVP PRN (15:18)
[2019-06-14] MEDS ORDERED: Naloxone 0.4 MG/ML INJ IVP PRN (15:18)
[2019-06-14 19:04] LABS: Estimated Average Glucose 154 mg/dl
[2019-06-14] MEDS ORDERED: *HR* LORazepam 2 MG/ML VIAL IVP ONE (20:13)
[2019-06-14] MEDS: Furosemide 40 MG/4 ML VIAL IVP SCH (21:08)
[2019-06-14] MEDS: Nicotine 21 MG PATCH.TD24 TD SCH (21:08)
[2019-06-14] MEDS ORDERED: *HR* Dextrose 50 % in Water (Syg) 50 ML SYRINGE IVP PRN (21:24)
[2019-06-14] MEDS ORDERED: Dextrose Gel 15 GM/37.5 ML TUBE PO PRN ×2 (21:24)
[2019-06-14] MEDS ORDERED: D5% in Water 1,000 ML IVC PRN (21:24)
[2019-06-14] MEDS: Ipratropium/Albuterol Neb 3 ML IH PRN (21:48)
[2019-06-14] MEDS: Insulin LISPRO 300 UNITS/3 ML VIAL SQ SCH (21:51)
[2019-06-15 02:10] LABS: BUN/Creatinine Ratio 16 (6-26); Blood Urea Nitrogen 15 mg/dL (6-20); Calcium 9.3 mg/dL (8.6-10.3); Carbon Dioxide 26 mEq/L (23-29); Chloride 97 mEq/L (98-107); Glucose 334 mg/dL (70-105); Magnesium 1.6 mg/dL (1.6-2.6); Osmolality,Calculated 296 (280-300); Potassium 3.9 mEq/L (3.5-5.1); Sodium 136 mEq/L (136-145); eGFR For African Americans > 60 (> 60); eGFR For Non-African Americans > 60 (> 60)
[2019-06-15] MEDS ORDERED: Regadenoson 0.4 MG/5 ML SYRINGE IVP ONE (06:10)
[2019-06-15] MEDS: Insulin LISPRO 300 UNITS/3 ML VIAL SQ SCH ×4 (08:00→20:35)
[2019-06-15] MEDS ORDERED: Perflutren Lipid Microsphere 1.3 ML in 0.9 % Sodium Chloride 8.7 ML IVP ONE (08:59)
[2019-06-15] MEDS ORDERED: Tiotropium 18 MCG inhalation IH SCH (10:00)
[2019-06-15] MEDS: Ipratropium/Albuterol Neb 3 ML IH PRN (10:54)
[2019-06-15] MEDS: Thyroid (Amour) 30 MG TABLET PO SCH (11:33)
[2019-06-15] MEDS: Furosemide 40 MG/4 ML VIAL IVP SCH ×2 (11:35→20:34)
[2019-06-15] MEDS: Nicotine 21 MG PATCH.TD24 TD SCH (11:40)
[2019-06-15] MEDS: Ipratropium/Albuterol Neb 3 ML IH SCH ×3 (11:46→20:21)
[2019-06-15] MEDS ORDERED: methylPREDNISolone 125 MG/2 ML VIAL IVP ONE (13:03)
[2019-06-15] MEDS ORDERED: Insulin Human Regular 10 UNIT in 0.9 % Sodium Chloride 10 ML IV ONE (22:56)
[2019-06-16] MEDS ORDERED: Insulin Human Regular 10 UNIT in 0.9 % Sodium Chloride 10 ML IV ONE (01:12)
[2019-06-16] MEDS: Ipratropium/Albuterol Neb 3 ML IH SCH ×4 (04:22→11:04)
[2019-06-16] MEDS ORDERED: *HR* Enoxaparin 40 MG/0.4 ML SYRINGE SQ SCH (06:00)
[2019-06-16] MEDS ORDERED: Insulin DETEMIR 100 UNIT/ML X5UNITS SQ SCH ×2 (08:02→09:00)
[2019-06-16] MEDS ORDERED: predniSONE 20 MG TABLET PO SCH (09:00)
[2019-06-16] MEDS: Thyroid (Amour) 30 MG TABLET PO SCH (10:13)
[2019-06-16] MEDS: Insulin LISPRO 300 UNITS/3 ML VIAL SQ SCH (10:20)
[2019-06-16] MEDS: Furosemide 40 MG/4 ML VIAL IVP SCH (10:20)
[2019-06-16 11:49] VITALS: BP 139/76
== END 2019-06-16 12:25 | disposition home or self-care (01) | DRG 292 ==
LOC: 3BNU 11:23 → EMEROOARM 11:23 → 3BNU 16:18
PROVIDERS: ADMIT Student in an Organized Health Care Education/Training Program; ATTEND Student in an Organized Health Care Education/Training Program

== ENCOUNTER 2022-03-29 14:55 | Inpatient (IN) ==
[2022-03-29] MEDS ORDERED: Naloxone 0.4 MG/ML INJ IVP PRN (19:46)
[2022-03-29] MEDS ORDERED: Acetaminophen 325 MG TABLET PO PRN (19:46)
[2022-03-29] MEDS ORDERED: *HR* HYDROcodone/Acet 5/325 mg TABLET PO PRN (19:46)
[2022-03-29] MEDS ORDERED: Ondansetron 4 MG/2 ML VIAL IVP PRN (19:46)
[2022-03-29] MEDS ORDERED: *HR* OxyCODONE Immed Rel 5 MG TABLET PO PRN (19:46)
[2022-03-29] MEDS ORDERED: *HR* Metoprolol 5 MG/5 ML VIAL IVP ONE (20:16)
[2022-03-29] MEDS: DilTIAZem 50 MG/50 ML IV.SOLN IVC SCH (21:17)
[2022-03-29] MEDS: Apixaban 5 MG TABLET PO SCH (23:41)
[2022-03-30] MEDS ORDERED: Ipratropium/Albuterol Neb 3 ML IH PRN (02:24)
[2022-03-30 03:27] LABS: Basophils # 0.1 K/mcL (0.0-0.2); Basophils % 0.7 %; Eosinophils # 0.2 K/mcL (0.0-0.6); Eosinophils % 1.1 %; Hematocrit 46.2 % (35.3-44.9); Hemoglobin 14.5 g/dL (11.5-15.4); Immature Granulocytes % 1.5 % (0-4); Lymphocytes # 3.6 K/mcL (0.6-4.6); Lymphocytes % 21.2 %; Mean Corpuscular HGB Conc 31.4 g/dL (31.6-35.5); Mean Corpuscular Hemoglobin 29.7 pg (28.0-33.3); Mean Corpuscular Volume 94.7 fL (83.0-100.0); Mean Platelet Volume 10.4 fL (9.4-12.4); Monocytes # 0.8 K/mcL (0.0-1.3); Monocytes % 4.4 %; Platelet Count 194 K/mcL (140-400); Red Blood Count 4.88 M/mcL (3.82-4.97); Red Cell Distribution Width 13.5 % (11.5-14.5); Segmented Neutrophils % 71.1 %; White Blood Count 16.9 K/mcL (4.3-11.1)
[2022-03-30 03:34] LABS: INR 1.1; Prothrombin Time 12.3 Seconds (9.4-12.1)
[2022-03-30 03:42] LABS: BUN/Creatinine Ratio 28 (6-26); Blood Urea Nitrogen 21 mg/dL (6-20); Calcium 9.2 mg/dL (8.6-10.3); Carbon Dioxide 36 mEq/L (23-29); Chloride 94 mEq/L (98-107); Chol/HDL Ratio 2.6 (0-4.9); Cholesterol 137 mg/dL (< 200); Glucose 220 mg/dL (70-105); HDL Cholesterol 52 mg/dL (40-59); LDL Cholesterol,Calculated 62 mg/dL (< 100); Magnesium 1.9 mg/dL (1.6-2.6); Osmolality,Calculated 296 (280-300); Phosphorous 5.4 mg/dL (2.7-4.5); Potassium 3.3 mEq/L (3.5-5.1); Sodium 138 mEq/L (136-145); Triglycerides 117 mg/dL (< 150); eGFR For African Americans > 60 (> 60); eGFR For Non-African Americans > 60 (> 60)
[2022-03-30] MEDS ORDERED: *HR* Enoxaparin 120 MG/0.8 ML SYRINGE SQ SCH (06:00)
[2022-03-30] MEDS: DilTIAZem 50 MG/50 ML IV.SOLN IVC SCH (06:19)
[2022-03-30] MEDS: Doxycycline 100 MG in 0.9 % Sodium Chloride Mini Bag 100 ML IVPB SCH ×2 (06:20→17:26)
[2022-03-30 06:38] LABS: Thyroid Stimulating Hormone 5.808 mcIU/mL (0.340-5.600)
[2022-03-30] MEDS ORDERED: predniSONE 20 MG TABLET PO SCH (09:00)
[2022-03-30] MEDS ORDERED: Metoprolol XL (24 HR) Succ 25 MG TAB.ER.24H PO SCH (09:00)
[2022-03-30] MEDS: Apixaban 5 MG TABLET PO SCH ×2 (09:06→20:01)
[2022-03-30] MEDS ORDERED: Fluconazole 150 MG TABLET PO ONE (10:24)
[2022-03-30] MEDS ORDERED: D5% in Water 1,000 ML IVC PRN (10:32)
[2022-03-30] MEDS ORDERED: Dextrose Gel 15 GM/37.5 ML TUBE PO PRN ×2 (10:32)
[2022-03-30] MEDS ORDERED: *HR* Dextrose 50 % in Water (Syg) 50 ML SYRINGE IVP PRN (10:32)
[2022-03-30] MEDS: Nicotine 21 MG PATCH.TD24 TD SCH (11:13)
[2022-03-30] MEDS: Insulin LISPRO 300 UNITS/3 ML VIAL SUBQ SCH ×3 (11:28→22:33)
[2022-03-30] MEDS ORDERED: Iopamidol - 370 500 ML MLS IVP ONE (11:41)
[2022-03-30] MEDS: Ipratropium/Albuterol Neb 3 ML IH SCH ×4 (11:42→23:58)
[2022-03-30] MEDS ORDERED: Furosemide 20 MG/2 ML VIAL IVP ONE (13:26)
[2022-03-30] MEDS ORDERED: Gabapentin 300 MG CAPSULE PO PRN (17:08)
[2022-03-30] MEDS ORDERED: hydrOXYzine pamoate 25 MG CAPSULE PO PRN (22:04)
[2022-03-30] MEDS ORDERED: ALPRAZolam 0.25 MG TABLET PO ONE (22:15)
[2022-03-31 03:37] LABS: Basophils # 0.1 K/mcL (0.0-0.2); Basophils % 0.3 %; Eosinophils % 0.1 %; Hematocrit 44.3 % (35.3-44.9); Hemoglobin 13.8 g/dL (11.5-15.4); Immature Granulocytes % 1.8 % (0-4); Lymphocytes # 1.6 K/mcL (0.6-4.6); Lymphocytes % 9.4 %; Mean Corpuscular HGB Conc 31.2 g/dL (31.6-35.5); Mean Corpuscular Hemoglobin 29.2 pg (28.0-33.3); Mean Corpuscular Volume 93.9 fL (83.0-100.0); Mean Platelet Volume 10.4 fL (9.4-12.4); Monocytes # 0.6 K/mcL (0.0-1.3); Monocytes % 3.4 %; Neutrophils # 14.4 K/mcL (1.6-8.9); Platelet Count 208 K/mcL (140-400); Red Blood Count 4.72 M/mcL (3.82-4.97); Red Cell Distribution Width 13.2 % (11.5-14.5)
[2022-03-31] MEDS: Ipratropium/Albuterol Neb 3 ML IH SCH ×4 (03:57→16:18)
[2022-03-31 04:00] LABS: BUN/Creatinine Ratio 29 (6-26); Blood Urea Nitrogen 21 mg/dL (6-20); Calcium 9.9 mg/dL (8.6-10.3); Carbon Dioxide 31 mEq/L (23-29); Chloride 97 mEq/L (98-107); Glucose 310 mg/dL (70-105); Osmolality,Calculated 297 (280-300); Potassium 4.6 mEq/L (3.5-5.1); Sodium 136 mEq/L (136-145); eGFR For African Americans > 60 (> 60); eGFR For Non-African Americans > 60 (> 60)
[2022-03-31 05:59] LABS: ABG Base Excess 6 mEq/L (-2 to 3); ABG HCO3 33 mEq/L (21-27); ABG Oxygen Saturation 99 % (95-98); ABG PCO2 59 mmHg (35-45); ABG PH 7.36 pH Units (7.32-7.45); ABG PO2 152 mmHg (85-104); ABG TCO2 35 mEq/L (20-26); Blood Gas Modality BiLevel; Blood Gas Pressure Support 6 cm H2O
[2022-03-31] MEDS: Insulin LISPRO 300 UNITS/3 ML VIAL SUBQ SCH ×4 (08:39→20:50)
[2022-03-31] MEDS: Apixaban 5 MG TABLET PO SCH ×2 (08:39→20:49)
[2022-03-31] MEDS: Nicotine 21 MG PATCH.TD24 TD SCH (08:39)
[2022-03-31] MEDS: Doxycycline 100 MG in 0.9 % Sodium Chloride Mini Bag 100 ML IVPB SCH (09:07)
[2022-03-31] MEDS: DilTIAZem CD (24hr) 180 MG CAP.ER.24H PO SCH (11:57)
[2022-03-31] MEDS: Thyroid (Amour) 30 MG TABLET PO SCH (11:57)
[2022-03-31] MEDS: Clotrimazole Vag CRM 45 GM TUBE VG SCH ×2 (11:58→20:50)
[2022-03-31 13:06] LABS: Adenovirus Not Detected (Not Detect); Bordetella Pertussis Not Detected (Not Detect); Chlamydophila pneumoniae Not Detected (Not Detect); Coronavirus 229E Not Detected (Not Detect); Coronavirus HKU1 Not Detected (Not Detect); Coronavirus NL63 Not Detected (Not Detect); Coronavirus OC43 Not Detected (Not Detect); Human Metapneumovirus Not Detected (Not Detect); Human Rhinovirus/Enterovirus Not Detected (Not Detect); Influenza A Subtype 2009 H1 Not Detected (Not Detect); Influenza B Not Detected (Not Detect); Mycoplasma pneumoniae Not Detected (Not Detect); Parainfluenza Virus 1 Not Detected (Not Detect); Parainfluenza Virus 2 Not Detected (Not Detect); Parainfluenza Virus 3 Not Detected (Not Detect); Parainfluenza Virus 4 Not Detected (Not Detect); Respiratory Syncytial Virus Not Detected (Not Detect); SARS-CoV-2 Not Detected (Not Detect)
[2022-03-31] MEDS ORDERED: Ipratropium/Albuterol Neb 3 ML IH PRN (16:00)
[2022-03-31] MEDS: Tiotropium 10 INH DOSE IH SCH (16:07)
[2022-03-31] MEDS: Budesonide/Formoterol 160/4.5 1 PUFF INH IH SCH (16:16)
[2022-03-31] MEDS: Doxycycline 100 MG CAPSULE PO SCH (20:49)
[2022-04-01 03:51] LABS: Basophils # 0.1 K/mcL (0.0-0.2); Basophils % 0.4 %; Eosinophils # 0.1 K/mcL (0.0-0.6); Eosinophils % 0.3 %; Hematocrit 41.7 % (35.3-44.9); Hemoglobin 13.3 g/dL (11.5-15.4); Immature Granulocytes % 2.3 % (0-4); Lymphocytes # 2.8 K/mcL (0.6-4.6); Lymphocytes % 11.8 %; Mean Corpuscular HGB Conc 31.9 g/dL (31.6-35.5); Mean Corpuscular Hemoglobin 29.8 pg (28.0-33.3); Mean Corpuscular Volume 93.3 fL (83.0-100.0); Mean Platelet Volume 10.1 fL (9.4-12.4); Monocytes # 0.9 K/mcL (0.0-1.3); Monocytes % 3.9 %; Platelet Count 222 K/mcL (140-400); Red Blood Count 4.47 M/mcL (3.82-4.97); Red Cell Distribution Width 13.2 % (11.5-14.5); Segmented Neutrophils % 81.3 %; White Blood Count 23.3 K/mcL (4.3-11.1)
[2022-04-01 04:15] LABS: BUN/Creatinine Ratio 40 (6-26); Blood Urea Nitrogen 23 mg/dL (6-20); Calcium 9.6 mg/dL (8.6-10.3); Carbon Dioxide 30 mEq/L (23-29); Chloride 96 mEq/L (98-107); Glucose 294 mg/dL (70-105); Osmolality,Calculated 293 (280-300); Potassium 4.6 mEq/L (3.5-5.1); Sodium 134 mEq/L (136-145)
[2022-04-01 06:52] VITALS: BP 137/81; PULSE 76; TEMP 98.2
[2022-04-01] MEDS: Nicotine 21 MG PATCH.TD24 TD SCH (08:26)
[2022-04-01] MEDS: Doxycycline 100 MG CAPSULE PO SCH (08:27)
[2022-04-01] MEDS: DilTIAZem CD (24hr) 180 MG CAP.ER.24H PO SCH (08:27)
[2022-04-01] MEDS: Thyroid (Amour) 30 MG TABLET PO SCH (08:27)
[2022-04-01] MEDS: Apixaban 5 MG TABLET PO SCH (08:27)
[2022-04-01] MEDS: Insulin LISPRO 300 UNITS/3 ML VIAL SUBQ SCH ×3 (08:28→17:25)
[2022-04-01] MEDS: Budesonide/Formoterol 160/4.5 1 PUFF INH IH SCH ×2 (10:02→22:33)
[2022-04-01] MEDS: Tiotropium 10 INH DOSE IH SCH (10:03)
[2022-04-01 14:55] VITALS: O2SAT 95
== END 2022-04-01 17:44 | disposition home or self-care (01) | DRG 190 ==
LOC: 2NNU → SUATTDRO 19:01 → 3BNU 03-31 13:36 → SUATTDRO 03-31 15:39
PROVIDERS: ADMIT Internal Medicine; ATTEND Student in an Organized Health Care Education/Training Program